=== PATIENT | female | born 1975 | race African-American/Black ===

== ENCOUNTER → 2017-02-18 | Emergency (ER) | payer MEDICARE, MEDICAID ==
[~2017-02-18] VITALS: Ht 157.5 cm; Wt 74.8 kg
[~2017-02-18] MED LIST: ALBUTEROL SULF8.5 GM INH; BACLOFEN10 MG ORAL; IBUPROFEN600 MG ORAL; IBUPROFEN600 MG PO; Ketorolac 30mg Inj IM ONE; MIRTAZAPINE15 M3 ORAL; NKM; NORCO 5-325 TA1 EACH ORAL; NORCO 5-325 TA1 EACH PO; RANITIDINE HCL150 MG ORAL; ZITHROMAX250 MG ORAL
--- NOTE | 2017-02-18 12:05 | Diagnostic Imaging Report ---
Indication: Right shoulder pain Technique: 3 views of the right shoulder Comparison: none Findings: No acute fractures. No dislocations. Joint spaces are preserved. Impression:Negative
[2017-02-18 12:54] VITALS: BP 130/69
--- NOTE | 2017-02-19 14:52 | Emergency Room Report ---
History of Present Illness General Chief Complaint: General Complaint Source: Family Member Present Illness HPI 41-year-old female presents ED for evaluation. Mother at bedside states that patient is complaining of pain in her right shoulder since yesterday. States the pain as a 10 out of 10, sharp, nonradiating. Unable to abduct her shoulder. Patient normally resides in a [id number] but is currently living with her mother. Denies any recent trauma. No other aggravting or relieving factors. Denies any other associated symptoms Allergies: Coded Allergies: No Known Allergies (Unverified , 11/26/12) Patient History Past Medical History: psych hx Past Surgical History: none Pertinent Family History: none Social History: Denies: alcohol use, drug use, smoking Last Menstrual Period: unk Now: No Immunizations: UTD Reviewed Nursing Documentation: PMH: Agreed, PSxH: Agreed Nursing Documentation-PMH Past Medical History: No History, Except For History Of Psychiatric Problem: Yes Review of Systems All Other Systems: negative except mentioned in HPI Physical Exam Vital Signs Date Time Temp Pulse Resp B/P Pulse Ox O2 Delivery O2 Flow Rate FiO2 02/18/17 11:12 98.8 85 18 130/69 98 Room Air Sp02 EP Interpretation: reviewed, normal General Appearance: no apparent distress, alert, GCS 15, non-toxic Head: normocephalic Eyes: bilateral eye PERRL, bilateral eye normal inspection ENT: normal ENT inspection Neck: normal inspection Respiratory: normal inspection Cardiovascular #1: normal inspection Gastrointestinal: normal inspection Rectal: deferred Genitourinary: no CVA tenderness Musculoskeletal: decreased range of motion - R shoulder Neurologic: alert, oriented x3, responsive, motor strength/tone normal, sensory intact, speech normal Psychiatric: anxious Skin: normal inspection Lymphatic: normal inspection Procedures Splinting Splinting : Consent: Verbal Pre-Made Type: sling Pre-Proc Neuro Vasc Exam: normal Post-Proc Neuro Vasc Exam: normal Patient Tolerated: Well Complications: None Medical Decision Making Diagnostic Impression: Primary Impression: Frozen shoulder Qualified Codes: M75.01 - Adhesive capsulitis of right shoulder ER Course Hospital Course 41 year old female presents ED complaining of right shoulder pain. No trauma Differential diagnoses include: Fracture, dislocation, sprain, contusion Clinical course Patient placed on stretcher. After initial history and physical, I ordered pain medications and Xrays of R shoulder Xrays prelim read shows no acute fracture/dislocation. placed in sling. Given limited range of motion likely rotator cuff injury versus adhesive capsulitis. Recommend followup with ortho Diagnosis - shoulder pain Stable and discharged to home with prescription for Motrin, [place]. apply ice, keep elevated. weight bear as tolerated. Followup with PMD. Return to ED if symptoms recur or worsen Other X-Ray Diagnostic Results Other X-Ray Diagnostic Results : X-Ray ordered: R shoulder # of Views/Limited Vs Complete: 3 View Indication: Pain EP Interpretation: Yes Interpretation: no dislocation, no soft tissue swelling, no fractures Impression: No acute disease Interpreting ER Provider: Electronically signed by Wilder Grimes MD Last Vital Signs Date Time Temp Pulse Resp B/P Pulse Ox O2 Delivery O2 Flow Rate FiO2 02/18/17 13:01 98.8 02/18/17 12:54 68 18 130/69 98 Room Air Status: improved Disposition: HOME, SELF-CARE Condition: Stable Scripts Hydrocodone Bit/Acetaminophen 5-325* (NORCO 5-325*) 1 Each Tablet 1 TAB ORAL Q6H Y for For Pain, #10 TAB 0 Refills Prov: WILDER GRIMES M.D. 02/18/17 Ibuprofen* (MOTRIN*) 600 Mg Tablet 600 MG ORAL Q8H Y for For Pain, #30 TAB 0 Refills Prov: WILDER GRIMES M.D. 02/18/17 Referrals: FLYNN MELENDREZ Patient Instructions: Adhesive Capsulitis WILDER GRIMES M.D. Feb 19, 2017 14:52
== END | disposition home or self-care (01) ==
LOC: EMR 11:52
DX: M75.01 Adhesive capsulitis of right shoulder (principal)
CPT/HCPCS: 29240; 73030; 96372; 99284; J1885

== ENCOUNTER 2017-02-20 21:10 | Emergency (ER) | payer MEDICARE, MEDICAID ==
[~2017-02-20] VITALS: Ht 152.4 cm; Wt 90.7 kg
[~2017-02-20 21:10] MED LIST changes: -BACLOFEN10 MG ORAL; -Ketorolac 30mg Inj IM ONE; -MIRTAZAPINE15 M3 ORAL
[2017-02-20] MEDS ORDERED: BACLOFEN10 MG ORAL (21:13)
[2017-02-20] MEDS ORDERED: MIRTAZAPINE15 M3 ORAL (21:13)
[2017-02-20 21:21] VITALS: BP 147/90
--- NOTE | 2017-02-21 03:14 | Emergency Room Report ---
History of Present Illness General Chief Complaint: Medication Refill Source: Patient, EMS Present Illness HPI 41YOF BIBEMS for medication refill Requesting refills of baclofen and Mirtzapine "to help me sleep." Denies chest pain, SOB, abd pain, headache, fever/chills, to name a few Denies SI, HI, AVH Allergies: Coded Allergies: No Known Allergies (Unverified , 11/26/12) Patient History Past Medical History: psych hx Past Surgical History: none Pertinent Family History: none Social History: Denies: alcohol use, drug use, smoking Last Menstrual Period: ukn Now: No Immunizations: UTD Reviewed Nursing Documentation: PMH: Agreed, PSxH: Agreed Nursing Documentation-PMH Past Medical History: No History, Except For Review of Systems All Other Systems: negative except mentioned in HPI Physical Exam Vital Signs Date Time Temp Pulse Resp B/P Pulse Ox O2 Delivery O2 Flow Rate FiO2 02/20/17 21:10 98.2 67 15 147/90 100 Room Air Sp02 EP Interpretation: reviewed, normal General Appearance: normal inspection, well appearing, no apparent distress, alert, GCS 15, non-toxic Head: atraumatic Eyes: bilateral eye EOMI, bilateral eye PERRL ENT: normal ENT inspection, hearing grossly normal, normal voice Neck: normal inspection, full range of motion, supple, no bony tend Respiratory: normal inspection, lungs clear, normal breath sounds, no respiratory distress, no retraction, no wheezing Cardiovascular #1: regular rate, rhythm, no edema Gastrointestinal: normal inspection, normal bowel sounds, non tender, soft, no guarding, no hernia Genitourinary: no CVA tenderness Musculoskeletal: normal inspection, back normal, normal range of motion, Kira' s Sign negative Neurologic: normal inspection, alert, oriented x3, responsive, kier drier III-XII nml as tested, motor strength/tone normal, speech normal Psychiatric: normal inspection, judgement/insight normal, mood/affect normal, no suicidal/homicidal ideation, no delusions Skin: normal inspection, normal color, no rash Medical Decision Making Diagnostic Impression: Primary Impression: Medication refill ER Course Meds refilled No active medical issues VSS. Afebrile Advised to NOT abuse EMS or ER for med refill again in the future Last Vital Signs Date Time Temp Pulse Resp B/P Pulse Ox O2 Delivery O2 Flow Rate FiO2 02/20/17 21:21 98.2 85 15 147/90 100 Room Air Status: improved Disposition: HOME, SELF-CARE Condition: Improved Scripts Baclofen* (BACLOFEN*) 10 Mg Tablet 10 MG ORAL THREE TIMES A DAY for muscle spasm for 7 Days, #30 TAB Prov: ANDREW SOW M.D. 02/20/17 Mirtazapine* (MIRTAZAPINE*) 15 Mg Tablet 15 MG ORAL BEDTIME for insomnia for 30 Days, #30 TAB Prov: ANDREW SOW M.D. 02/20/17 Referrals: [facility],REFERRING (PCP) Patient Instructions: Medicine Refill at the Emergency Department ANDREW SOW M.D. Feb 21, 2017 03:13
== END 2017-02-20 21:20 | disposition home or self-care (01) ==
LOC: EDBD 21:10 → EMR 21:18
DX: Z76.0 Encounter for issue of repeat prescription (principal)
CPT/HCPCS: 99284

== ENCOUNTER 2017-03-05 16:51 | Emergency (ER) | payer MEDICARE, MEDICAID ==
[~2017-03-05] VITALS: Ht 157.5 cm; Wt 72.6 kg
[~2017-03-05 16:51] MED LIST changes: +BACLOFEN10 MG ORAL; +MIRTAZAPINE15 M3 ORAL
[2017-03-05 17:30] VITALS: BP 119/84
[2017-03-05 17:31] VITALS: BP 119/84
--- NOTE | 2017-03-05 20:56 | Emergency Room Report ---
History of Present Illness General Chief Complaint: General Complaint Source: Patient Present Illness HPI 41-year-old female presents to ER for evaluation. Patient is requesting medication refill. patient is requesting medications to help her sleep. Patient is requesting mirtazapine and baclofen. Patient is well-known to this ER and has been here multiple times in the past for similar complaints. Patient states she feels very nervous that she cannot sleep. Patient does have an extensive psychiatric history. Denies suicidal or homicidal ideation. Denies hearing voices. Denies alcohol or drug use. No aggravating relieving factors. No other associated symptoms Allergies: Coded Allergies: No Known Allergies (Unverified , 11/26/12) Patient History Past Medical History: psych hx Past Surgical History: none Pertinent Family History: none Social History: Denies: alcohol use, drug use, smoking Last Menstrual Period: 02/02/17 Now: No Immunizations: UTD Reviewed Nursing Documentation: PMH: Agreed, PSxH: Agreed Nursing Documentation-PMH History Of Psychiatric Problem: Yes Review of Systems All Other Systems: negative except mentioned in HPI Physical Exam Vital Signs Date Time Temp Pulse Resp B/P Pulse Ox O2 Delivery O2 Flow Rate FiO2 03/05/17 16:59 98.4 100 15 117/82 96 Room Air Sp02 EP Interpretation: reviewed, normal General Appearance: no apparent distress, alert, GCS 15, non-toxic Head: normocephalic, atraumatic Eyes: bilateral eye PERRL, bilateral eye normal inspection ENT: hearing grossly normal, normal pharynx, no angioedema, normal voice Neck: full range of motion, supple/symm/no masses Respiratory: chest non-tender, lungs clear, normal breath sounds, speaking full sentences Cardiovascular #1: regular rate, rhythm, no edema Cardiovascular #2: 2+ carotid (R), 2+ carotid (L), 2+ radial (R), 2+ radial (L) , 2+ dorsalis pedis (R), 2+ dorsalis pedis (L) Gastrointestinal: normal bowel sounds, non tender, soft, non-distended, no guarding, no rebound Rectal: deferred Genitourinary: normal inspection, no CVA tenderness Musculoskeletal: back normal, gait/station normal, normal range of motion, non- tender Neurologic: alert, oriented x3, responsive, motor strength/tone normal, sensory intact, speech normal Psychiatric: memory normal, no suicidal/homicidal ideation, anxious Reflexes: 3+ bicep (R), 3+ bicep (L), 3+ tricep (R), 3+ tricep (L), 3+ knee (R) , 3+ knee (L) Skin: normal color, no rash, warm/dry, well hydrated Lymphatic: no adenopathy Medical Decision Making Diagnostic Impression: Primary Impression: Medication refill ER Course 41-year-old female presents to ED refill of her medication. requesting medications to [facility] course: After initial history and physical, I reviewed EMR. Patient has been here multiple times in the past for similar complaints. Patient normally comes with her mother who requests the medication on behalf of the patient. Patient was here recently for medication refill. Ear provide agreed to provide her with short course refill but did caution her patient should go to her PCP for medication refill I explained at this time I am uncomfortable prescribing her refills of these medications. I asked the patient why she did not go to her PCP for medication refill she says she forgot. I did not believe it is appropriate to prescribe medication at this time and patient should followup with her PCP Patient was to be discharged but left without her discharge papers Diagnosis-encounter for medication refill patient left without discharge papers Last Vital Signs Date Time Temp Pulse Resp B/P Pulse Ox O2 Delivery O2 Flow Rate FiO2 03/05/17 17:31 98.3 14 119/84 97 Room Air 03/05/17 17:30 97 Status: improved Disposition: HOME, SELF-CARE Condition: Stable Referrals: [facility],REFERRING (PCP) FELISHA TERRY M.D. Mar 05, 2017 20:56
== END 2017-03-05 17:32 | disposition home or self-care (01) ==
LOC: EMR 17:04
DX: Z76.0 Encounter for issue of repeat prescription (principal)
CPT/HCPCS: 99281

== ENCOUNTER 2017-03-22 14:41 | Emergency (ER) | payer MEDICARE, MEDICAID ==
[~2017-03-22] VITALS: Ht 149.9 cm; Wt 54.4 kg
[2017-03-22] MEDS ORDERED: Metoclopramide 10mg/10ml Liq ORAL ONE (15:00)
[2017-03-22] MEDS ORDERED: TYLENOL EXTRA500 MG ORAL (15:50)
[2017-03-22 16:27] VITALS: BP 129/74
[2017-03-22 16:31] VITALS: BP 129/74
--- NOTE | 2017-03-22 18:46 | Emergency Room Report ---
History of Present Illness General Chief Complaint: Headache Source: EMS Present Illness HPI The patient is a 41-year-old female a little to this emergency Department presenting for headache. She states that she has a history of migraine headaches. Headache began this morning described as a 10 out of 10 stabbing pain to the temples. Pain does not radiate. No known provoking or relieving factors. She denies other symptoms including nausea, vomiting, fever, chills, blurred vision Allergies: Coded Allergies: No Known Allergies (Unverified , 11/26/12) Patient History Past Medical History: see triage record Pertinent Family History: none Reviewed Nursing Documentation: PMH: Agreed, PSxH: Agreed Nursing Documentation-PMH Past Medical History: No History, Except For Hx Neurological Problems: Yes - BIPOLAR Review of Systems All Other Systems: negative except mentioned in HPI Physical Exam Vital Signs Date Time Temp Pulse Resp B/P (MAP) Pulse Ox O2 Delivery O2 Flow Rate FiO2 03/22/17 14:35 98.8 93 20 129/74 98 Room Air Sp02 EP Interpretation: reviewed, normal General Appearance: no apparent distress, alert, GCS 15, non-toxic Head: normocephalic, atraumatic Eyes: bilateral eye normal inspection, bilateral eye PERRL ENT: hearing grossly normal, normal pharynx, no angioedema, normal voice Neck: full range of motion, supple/symm/no masses Musculoskeletal: back normal, gait/station normal, normal range of motion, non- tender Neurologic: alert, oriented x3, responsive, motor strength/tone normal, sensory intact, speech normal Psychiatric: judgement/insight normal, memory normal, mood/affect normal, no suicidal/homicidal ideation Skin: normal color, no rash, warm/dry, well hydrated Medical Decision Making PA Attestation Dr. Avila is my supervising physician. Patient management was discussed with my supervising physician Diagnostic Impression: Primary Impression: Migraine Qualified Codes: G43.909 - Migraine, unspecified, not intractable, without status migrainosus ER Course The patient is a 41-year-old female presenting for headache Differential diagnoses include but not limited to Migraine, tension headache, CVA, infection, SAH Physical exam: Afebrile. She is in no apparent distress. HEENT is unremarkable Neck is soft and supple. Full active range of motion The patient is given Tylenol, Reglan, and Benadryl and states that pain has significantly decreased. She is now asking to be discharged. ER precautions are given Last Vital Signs Date Time Temp Pulse Resp B/P (MAP) Pulse Ox O2 Delivery O2 Flow Rate FiO2 03/22/17 16:31 98.7 76 20 129/74 98 Room Air Status: improved Disposition: HOME, SELF-CARE Condition: Improved Scripts Acetaminophen* (TYLENOL EXTRA STRENGTH*) 500 Mg Tablet 500 MG ORAL Q8H Y for Prn Headache/Temp > 101, #30 TAB 0 Refills Prov: MAHNAZ BUTTS 03/22/17 Referrals: NON PHYSICIAN (PCP) Patient Instructions: Migraine Headache Additional Instructions: I discussed my findings with the patient. All questions and concerns have been answered. Treatment and medication compliance have been addressed. I advised the patient that they need to follow up with PMD in 3-5 days. Return to ED if symptoms worsen, new symptoms arise, or if needed for any reason. Patient verbalized understanding of discharge instructions. MAHNAZ BUTTS Mar 22, 2017 18:46
== END 2017-03-22 16:20 | disposition home or self-care (01) ==
LOC: EDBD 14:41 → EMR 15:10
DX: G43.909 Migraine, unspecified, not intractable, without status migrainosus (principal)
CPT/HCPCS: 99284

== ENCOUNTER 2017-04-12 18:06 | Emergency (ER) | payer MEDICARE, MEDICAID ==
[~2017-04-12] VITALS: Ht 162.6 cm; Wt 65.8 kg
[~2017-04-12 18:06] MED LIST changes: +TYLENOL EXTRA500 MG ORAL
[2017-04-12] MEDS ORDERED: DiphenhydrAMINE 50mg/ml Inj IM ONE (19:00)
[2017-04-12] MEDS ORDERED: Ketorolac 60mg Inj IM ONE (19:00)
[2017-04-12] MEDS ORDERED: Metoclopramide 10mg/2ml Inj IM ONE (19:00)
[2017-04-12 19:18] VITALS: BP 130/80
[2017-04-12] MEDS ORDERED: IBUPROFEN600 MG ORAL (19:33)
--- NOTE | 2017-04-12 22:39 | Emergency Room Report ---
History of Present Illness General Chief Complaint: General Complaint Source: Patient Present Illness HPI The patient is a 41-year-old female presenting for headache. She states that she has a history of migraines and this feels the same. Pain began today and described as a 5/10 sharp sensation to the entire head. She has not tried any medications yet. No known provoking relieving factors. She admits to photophobia but denies nausea, vomiting, fever, chills, neck pain or stiffness, chest pain, shortness of breath, blurred vision Allergies: Coded Allergies: No Known Allergies (Unverified , 11/26/12) Patient History Past Medical History: see triage record Pertinent Family History: none Reviewed Nursing Documentation: PMH: Agreed, PSxH: Agreed Nursing Documentation-PMH Past Medical History Deferred: Pt Cognitively Impaired History Of Psychiatric Problem: Yes - schizo Hx Neurological Problems: Yes - BIPOLAR Review of Systems All Other Systems: negative except mentioned in HPI Physical Exam Vital Signs Date Time Temp Pulse Resp B/P (MAP) Pulse Ox O2 Delivery O2 Flow Rate FiO2 04/12/17 18:01 98.1 78 16 130/80 98 Room Air Sp02 EP Interpretation: reviewed, normal General Appearance: no apparent distress, alert, GCS 15, non-toxic Head: normocephalic, atraumatic Eyes: bilateral eye normal inspection, bilateral eye PERRL ENT: hearing grossly normal, normal pharynx, no angioedema, normal voice Neck: full range of motion, supple/symm/no masses Respiratory: chest non-tender, lungs clear, normal breath sounds, speaking full sentences Musculoskeletal: back normal, gait/station normal, normal range of motion, non- tender Neurologic: alert, oriented x3, responsive, motor strength/tone normal, sensory intact, speech normal Psychiatric: judgement/insight normal, memory normal, no suicidal/homicidal ideation Skin: normal color, no rash, warm/dry, well hydrated Medical Decision Making PA Attestation Dr. Coe is my supervising physician. Patient management was discussed with my supervising physician Diagnostic Impression: Primary Impression: Migraine Qualified Codes: G43.909 - Migraine, unspecified, not intractable, without status migrainosus ER Course The patient is a 41-year-old female presenting for headache. Differential diagnoses include but not limited to Migraine, tension headache, AVM, anxiety, among others PE: Vitals WNL. NAD A&Ox3 Head NC/AT PERRL EOMI Neck is soft and supple. Full AROM RRR Lungs CTAB The patient is given IM Toradol, Reglan, and Benadryl in is given time to rest in the emergency department. She states the pain has significantly decreased and now wants to be discharged. To follow up with her primary doctor. ER precautions are given Last Vital Signs Date Time Temp Pulse Resp B/P (MAP) Pulse Ox O2 Delivery O2 Flow Rate FiO2 04/12/17 19:37 98.1 78 16 130/80 98 Room Air Status: improved Disposition: HOME, SELF-CARE Condition: Improved Scripts Ibuprofen* (MOTRIN*) 600 Mg Tablet 600 MG ORAL Q8H Y for For Pain, #30 TAB 0 Refills Prov: MAHNAZ BUTTS 04/12/17 Referrals: NOT CHOSEN [facility],REFERRING (PCP) Patient Instructions: Nausea, Adult Additional Instructions: I discussed my findings with the patient. All questions and concerns have been answered. Treatment and medication compliance have been addressed. I advised the patient that they need to follow up with PMD in 3-5 days. Return to ED if symptoms worsen, new symptoms arise, or if needed for any reason. Patient verbalized understanding of discharge instructions. MAHNAZ BUTTS Apr 12, 2017 22:39
== END 2017-04-12 19:40 | disposition home or self-care (01) ==
LOC: EDBD 18:06 → EMR 19:39
DX: G43.909 Migraine, unspecified, not intractable, without status migrainosus (principal); F31.9 Bipolar disorder, unspecified; F20.9 Schizophrenia, unspecified
CPT/HCPCS: 96372; 99284; J1200; J2765

== ENCOUNTER 2017-05-05 13:12 | Emergency (ER) | payer MEDICARE, MEDICAID ==
[~2017-05-05] VITALS: Ht 160 cm; Wt 65.8 kg
--- NOTE | 2017-05-05 13:25 | Emergency Room Report ---
History of Present Illness General Chief Complaint: Dizziness Source: Patient Present Illness HPI The patient is a 41-year-old female with a history of bipolar disorder and migraine headaches presenting for headache and dizziness. She has been seen in this emergency department several times for migraine headaches. She does not remember what medication she usually takes for the pain. Symptoms began together and described as a 10 out of 10 sharp sensation primarily to the right side of the head. She states that this feels typical for her migraine headaches. Dizziness is felt as the room spinning around her. She denies nausea or vomiting. She denies other symptoms including neck pain or stiffness , blurred vision, chest pain, shortness of breath, fever, chills Allergies: Coded Allergies: No Known Allergies (Unverified , 11/26/12) Patient History Past Medical History: see triage record, psych hx Pertinent Family History: none Reviewed Nursing Documentation: PMH: Agreed, PSxH: Agreed Nursing Documentation-PMH Past Medical History: No History, Except For Hx Hypertension: Yes Hx Neurological Problems: Yes - BIPOLAR Review of Systems All Other Systems: negative except mentioned in HPI Physical Exam Vital Signs Date Time Temp Pulse Resp B/P (MAP) Pulse Ox O2 Delivery O2 Flow Rate FiO2 05/05/17 13:09 99.0 74 18 154/82 98 Room Air Sp02 EP Interpretation: reviewed, normal General Appearance: no apparent distress, alert, GCS 15, non-toxic Head: normocephalic, atraumatic Eyes: bilateral eye normal inspection, bilateral eye PERRL ENT: hearing grossly normal, normal pharynx, no angioedema, normal voice Neck: full range of motion, supple, no bony tend, supple/symm/no masses Respiratory: chest non-tender, lungs clear, normal breath sounds, speaking full sentences Cardiovascular #1: regular rate, rhythm, no edema Gastrointestinal: normal bowel sounds, non tender, soft, non-distended, no guarding, no rebound Musculoskeletal: back normal, gait/station normal, normal range of motion, non- tender Neurologic: alert, responsive, sensory intact Psychiatric: judgement/insight normal, mood/affect normal, no suicidal/ homicidal ideation Skin: normal color, no rash, warm/dry, well hydrated Medical Decision Making PA Attestation Dr. Carlson is my supervising physician. Patient management was discussed with my supervising physician Diagnostic Impression: Primary Impression: Migraine Qualified Codes: G43.909 - Migraine, unspecified, not intractable, without status migrainosus ER Course The patient is a 41-year-old female with a history of migraines presenting for headache and dizziness Differential diagnoses include but not limited to Migraine, tension headache, CVA, ICH, sinusitis, among others PE: Vitals WNL. NAD Head is normocephalic atraumatic No TTP over sinuses PERRL EOMI Neck is soft and supple Blood work is unremarkable. EKG unremarkable. CT head is essentially negative The patient is given and medication including Toradol, Benadryl, and Reglan. She'll be discharged home and is to followup with her primary doctor. ER precautions are given Laboratory Tests Test 05/05/17 13:40 White Blood Count 8.2 K/UL (4.8-10.8) Red Blood Count 4.44 M/UL (4.20-5.40) Hemoglobin 14.5 G/DL (12.0-16.0) Hematocrit 46.1 % (37.0-47.0) Mean Corpuscular Volume 104 FL (80-99) H Mean Corpuscular Hemoglobin 32.7 PG (27.0-31.0) H Mean Corpuscular Hemoglobin Concent 31.5 G/DL (32.0-36.0) L Red Cell Distribution Width 11.8 % (11.6-14.8) Platelet Count 266 K/UL (150-450) Mean Platelet Volume 7.8 FL (6.5-10.1) Neutrophils (%) (Auto) 58.6 % (45.0-75.0) Lymphocytes (%) (Auto) 28.0 % (20.0-45.0) Monocytes (%) (Auto) 9.6 % (1.0-10.0) Eosinophils (%) (Auto) 2.0 % (0.0-3.0) Basophils (%) (Auto) 1.8 % (0.0-2.0) Prothrombin Time 10.2 SEC (9.30-11.50) Prothrombin Time INR 1.0 (0.9-1.1) PTT 30 SEC (23-33) Urine Color Yellow Urine Appearance Clear Urine pH 5 (4.5-8.0) Urine Specific [place] 1.020 (1.005-1.035) Urine Protein Negative (NEGATIVE) Urine Glucose (UA) Negative (NEGATIVE) Urine Ketones Negative (NEGATIVE) Urine Occult Blood Negative (NEGATIVE) Urine Nitrite Negative (NEGATIVE) Urine Bilirubin Negative (NEGATIVE) Urine Urobilinogen Normal MG/DL (0.0-1.0) Urine Leukocyte Esterase 1+ (NEGATIVE) H Urine RBC 0-2 /HPF (0 - 2) Urine WBC 2-4 /HPF (0 - 2) Urine Squamous Epithelial Cells Moderate /LPF (NONE/OCC) H Urine Bacteria Few /HPF (NONE) Urine HCG, Qualitative Negative Sodium Level 139 MMOL/L (136-145) Potassium Level 4.2 MMOL/L (3.5-5.1) Chloride Level 102 MMOL/L (98-107) Carbon Dioxide Level 31 MMOL/L (21-32) Anion Gap 6 mmol/L (5-15) Blood Urea Nitrogen 8 mg/dL (7-18) Creatinine 0.8 MG/DL (0.55-1.30) Estimate Glomerular Filtration Rate > 60 mL/min (>60) Glucose Level 103 MG/DL (74-106) Calcium Level 10.1 MG/DL (8.5-10.1) Total Bilirubin 0.3 MG/DL (0.2-1.0) Aspartate Amino Transferase (AST) 16 U/L (15-37) Alanine Aminotransferase (ALT) 18 U/L (12-78) Alkaline Phosphatase 69 U/L (46-116) Troponin I 0.000 ng/mL (0.000-0.056) Total Protein 8.5 G/DL (6.4-8.2) H Albumin 4.1 G/DL (3.4-5.0) Globulin 4.4 g/dL Albumin/Globulin Ratio 0.9 (1.0-2.7) L Lab Results Impression unremarkable EKG Diagnostic Results EP Interpretation: NSR. No acute findings Rate: normal - 97 Rhythm: NSR ST Segments: no acute changes ASA given to the pt in ED: No PA Scribe Text EKG was reviewed and read with my supervising physician. No acute ST segment changes are seen. Normal rate and rhythm. No acute changes. Chest X-Ray Diagnostic Results Chest X-Ray Diagnostic Results : Chest X-Ray Ordered: Yes # of Views/Limited/Complete: 1 View Indication: Other - dizziness EP Interpretation: Yes Interpretation: no consolidation, no effusion, no pneumothorax Impression: No acute disease Electronically Signed by: MCKAY Bobby Scribe Text I am acting as scribe for my supervising physician. My supervising physician's interpretation of the chest xrays are there is no consolidation, no effusion, no acute cardiopulmonary disease, no pneumothorax CT/MRI/US Diagnostic Results CT/MRI/US Diagnostic Results : Imaging Test Ordered: CT head Impression unremarkable Last Vital Signs Date Time Temp Pulse Resp B/P (MAP) Pulse Ox O2 Delivery O2 Flow Rate FiO2 05/05/17 13:09 99.0 74 18 154/82 98 Room Air Status: improved Disposition: HOME, SELF-CARE Condition: Improved MAHNAZ BUTTS May 05, 2017 13:25
[2017-05-05 13:53] VITALS: BP 154/82
[2017-05-05 14:00] LABS: BASOPHILS % (AUTO) 1.8 % (0.0-2.0); MEAN CORPUSCULAR HEMOGLOBIN 32.7 PG (27.0-31.0); MEAN CORPUSCULAR HGB CONC 31.5 G/DL (32.0-36.0); MEAN CORPUSCULAR VOLUME 104 FL (80-99); MEAN PLATELET VOLUME 7.8 FL (6.5-10.1); MONOCYTES % (AUTO) 9.6 % (1.0-10.0); NEUTROPHILS % (AUTO) 58.6 % (45.0-75.0); PLATELET COUNT 266 K/UL (150-450); RED BLOOD COUNT 4.44 M/UL (4.20-5.40); RED CELL DISTRIBUTION WIDTH 11.8 % (11.6-14.8); WHITE BLOOD COUNT 8.2 K/UL (4.8-10.8)
[2017-05-05 14:03] LABS: APPEARANCE,URINE CLEAR; KETONES,URINE NEGATIVE (NEGATIVE); LEUKOCYTE ESTERASE ,URINE 1+ (NEGATIVE); NITRITE,URINE NEGATIVE (NEGATIVE); PH,URINE 5 (4.5-8.0); PROTEIN,URINE NEGATIVE (NEGATIVE); UROBILINOGEN,URINE NORMAL MG/DL (0.0-1.0)
[2017-05-05 14:08] LABS: PROTHROMBIN TIME 10.2 SEC (9.30-11.50)
--- NOTE | 2017-05-05 14:08 | Diagnostic Imaging Report ---
Indication: Dyspnea Comparison: 11/26/12 A single view chest radiograph was obtained. Findings: Cardiac silhouette is prominent. Pulmonary vascularity is appropriate. The diaphragmatic contour is smooth and costophrenic angles are sharp. No pleural effusions are identified. The bones are unremarkable. Impression: No acute findings Cardiomegaly
--- NOTE | 2017-05-05 14:08 | Diagnostic Imaging Report ---
Indication: Headache and dizziness Technique: Contiguous 5 mm thick transaxial imaging of the head obtained in a Siemens Sensation [address] scanner. Soft tissue and bone windows generated. Total Dose length Product (DLP): [address] Dose Index Volume (CTDIvol): 70.38, 0.15 mGy Comparison: none Findings: The size and configuration of the cortical sulci, basal cisterns, and ventricles are within normal limits for age. There is no mass effect, midline shift, or edema identified. There is no evidence of acute hemorrhage or abnormal intra-axial or extra-axial fluid collections. The bones and soft tissues are unremarkable. Impression: No mass effect, edema or acute bleed. The CT scanner at [facility] is accredited by the [employer] and the scans are performed using dose optimization techniques as appropriate to a performed exam including Automatic Exposure control.
[2017-05-05 14:12] LABS: BACTERIA,URINE FEW /HPF; RBC,URINE 0-2 /HPF (0 - 2); SQUAMOUS EPITHELIAL CELL,UR MODERATE /LPF (NONE/OCC)
[2017-05-05 14:13] LABS: ALANINE AMINOTRANSFERASE 18 U/L (12-78); ALBUMIN/GLOBULIN RATIO 0.9 (1.0-2.7); ANION GAP 6 mmol/L (5-15); ASPARTATE AMINO TRANSFERASE 16 U/L (15-37); CALCIUM 10.1 MG/DL (8.5-10.1); CARBON DIOXIDE 31 MMOL/L (21-32); CHLORIDE 102 MMOL/L (98-107); CREATININE 0.8 MG/DL (0.55-1.30); GLOMERULAR FILTRATION RATE > 60 mL/min (>60); POTASSIUM 4.2 MMOL/L (3.5-5.1); SODIUM 139 MMOL/L (136-145); TOTAL PROTEIN 8.5 G/DL (6.4-8.2)
[2017-05-05] MEDS ORDERED: Metoclopramide 10mg/2ml Inj IVP ONE (14:30)
[2017-05-05] MEDS ORDERED: Ketorolac 30mg Inj IV ONE (14:30)
[2017-05-05] MEDS ORDERED: DiphenhydrAMINE 50mg/ml Inj IVP ONE (14:30)
[2017-05-05 15:03] VITALS: BP 145/80
[2017-05-05 15:05] VITALS: BP 145/80
--- NOTE | 2017-05-06 15:14 | Cardiology Report ---
APPROVED REPORT EKG Measurement Heart [id number] 140P [id number] Normal sinus rhythm Lateral infarct, age undetermined Abnormal ECG
== END 2017-05-05 15:08 | disposition home or self-care (01) ==
LOC: EDBD 13:12 → EMR 13:42
DX: G43.909 Migraine, unspecified, not intractable, without status migrainosus (principal); I10 Essential (primary) hypertension; F31.9 Bipolar disorder, unspecified; R51 Headache; R42 Dizziness and giddiness
CPT/HCPCS: 36415; 70450; 71010; 80053; 81003; 81025; 84484; 85025; 85610; 85730; 93005; 96361; 96374; 96375; 99284; J1200; J1885; J2765

== ENCOUNTER 2017-05-25 15:09 | Emergency (ER) | payer MEDICARE, MEDICAID ==
[~2017-05-25] VITALS: Ht 162.6 cm; Wt 63.5 kg
[2017-05-25] MEDS ORDERED: Metoclopramide 10mg/10ml Liq ORAL ONE (15:15)
[2017-05-25] MEDS ORDERED: Excedrin Migraine tab ORAL ONE (15:15)
[2017-05-25 15:45] LABS: APPEARANCE,URINE CLEAR; BILIRUBIN, URINE NEGATIVE (NEGATIVE); GLUCOSE, URINE (UA) NEGATIVE (NEGATIVE); KETONES,URINE 1+ (NEGATIVE); LEUKOCYTE ESTERASE ,URINE 1+ (NEGATIVE); NITRITE,URINE NEGATIVE (NEGATIVE); PH,URINE 5 (4.5-8.0); PROTEIN,URINE NEGATIVE (NEGATIVE); UROBILINOGEN,URINE NORMAL MG/DL (0.0-1.0)
[2017-05-25 15:47] LABS: COLOR,URINE YELLOW
--- NOTE | 2017-05-25 15:51 | Emergency Room Report ---
History of Present Illness General Chief Complaint: Headache Present Illness HPI 41-year-old female presents to the emergency department complaining of 5/ 10 in severity dull aching headache that was progressive onset x2 days. Patient denies trauma or fall she denies loss of consciousness, dizziness, visual changes, nausea, vomiting. She denies abdominal pain, dysuria, frequency, hematuria. Denies fevers, chills, neck pain or stiffness.Denies numbness tingling or loss of sensation or gross motor movements of the extremities, incontinence of bowel or bladder. Denies CP, Palpitations, LOC, AMS, dizziness, Changes in Vision, Sensation, paresthesias, or a sudden severe headache. Allergies: Coded Allergies: No Known Allergies (Unverified , 11/26/12) Patient History Past Medical History: see triage record, psych hx - bipolar Past Surgical History: none Pertinent Family History: none Now: No Reviewed Nursing Documentation: PMH: Agreed, PSxH: Agreed Nursing Documentation-PMH Hx Hypertension: Yes Hx Neurological Problems: Yes - BIPOLAR Review of Systems All Other Systems: negative except mentioned in HPI Physical Exam Vital Signs Date Time Temp Pulse Resp B/P (MAP) Pulse Ox O2 Delivery O2 Flow Rate FiO2 05/25/17 15:06 97.2 82 16 128/86 100 Room Air Sp02 EP Interpretation: reviewed, normal General Appearance: no apparent distress, alert, GCS 15, non-toxic Head: normocephalic, atraumatic Eyes: bilateral eye normal inspection, bilateral eye PERRL ENT: hearing grossly normal, normal pharynx, no angioedema, normal voice Neck: full range of motion, no meningismus Respiratory: lungs clear, normal breath sounds, speaking full sentences Cardiovascular #1: regular rate, rhythm Gastrointestinal: non tender, soft Rectal: deferred Genitourinary: normal inspection, no CVA tenderness Musculoskeletal: back normal, gait/station normal, normal range of motion, non- tender Neurologic: alert, oriented x3, responsive, motor strength/tone normal, sensory intact, speech normal Psychiatric: other - Pt. has flattened affect. Skin: normal color, no rash, warm/dry, well hydrated Medical Decision Making PA Attestation Dr. Rosales is my supervising Physician whom patient management has been discussed with. Diagnostic Impression: Primary Impression: Headache Qualified Codes: R51 - Headache ER Course 41-year-old female presents to the emergency department complaining of 5/ 10 in severity dull aching headache that was progressive onset x2 days. Patient denies trauma or fall she denies loss of consciousness, dizziness, visual changes, nausea, vomiting. She denies abdominal pain, dysuria, frequency, hematuria. Denies fevers, chills, neck pain or stiffness.Denies numbness tingling or loss of sensation or gross motor movements of the extremities, incontinence of bowel or bladder. Denies CP, Palpitations, LOC, AMS, dizziness, Changes in Vision, Sensation, paresthesias, or a sudden severe headache. Ddx considered but are not limited to migraine, SAH, Psedudo motor Cerebri, Mass lesion, Cluster GARZA, Tension GARZA, Post lumbar puncture GARZA. Vital signs: are WNL, pt. is afebrile H&PE are most consistent with headache--Neurological deficits or 5 cm physical exam, no evidence of infection, no meningeal signs. ORDERS: - UA: Most indicative of contamination: presence of equal amounts of bacteria and squamous cells, no elevation in inflammatory markers, nitrite negative. ED INTERVENTIONS: - Reglan PO -Excedrine PO -d/w pt. conservative treatment, and to follow up with a primary care provider. pt given a list of primary care clinics for follow up. d/w pt. to return to the ED with worsening or new symptoms. -D/W the patient that she may need to be evaluated by neurologist if she continues to have frequent headaches.. DISCHARGE: At this time pt. is stable for d/c to home. Will provide printed patient care instructions, and any necessary prescriptions. Care plan and follow up instructions have been discussed with the patient prior to discharge. Labs Test 05/25/17 15:20 Urine Color Yellow Urine Appearance Clear Urine pH 5 (4.5-8.0) Urine Specific [place] 1.025 (1.005-1.035) Urine Protein Negative (NEGATIVE) Urine Glucose (UA) Negative (NEGATIVE) Urine Ketones 1+ (NEGATIVE) Urine Occult Blood Negative (NEGATIVE) Urine Nitrite Negative (NEGATIVE) Urine Bilirubin Negative (NEGATIVE) Urine Urobilinogen Normal MG/DL (0.0-1.0) Urine Leukocyte Esterase 1+ (NEGATIVE) Urine RBC 0-2 /HPF (0 - 2) Urine WBC 2-4 /HPF (0 - 2) Urine Squamous Epithelial Cells Moderate /LPF (NONE/OCC) Urine Bacteria Moderate /HPF (NONE) Last Vital Signs Date Time Temp Pulse Resp B/P (MAP) Pulse Ox O2 Delivery O2 Flow Rate FiO2 05/25/17 15:06 97.2 82 16 128/86 100 Room Air Disposition: HOME, SELF-CARE Condition: Stable Scripts Aspirin/Acetaminophen/Caffeine (EXCEDRIN MIGRAINE GELTAB) 1 Each Tablet 1 EACH PO Q8HR, #20 TAB Prov: Michelle Shelton 05/25/17 Patient Instructions: General Headache Without Cause Additional Instructions: Take medications as directed. Follow up with a Primary Care Provider in 3 days, Recommend NEUROLOGIST EVALUATION. --Please review list of primary care clinics, if you do not already have a primary care provider Return sooner to ED if new symptoms occur, or current symptoms become worse. - Please note that this Emergency Department Report was dictated using [employer] energy systems installer technology software, occasionally this can lead to erroneous entry secondary to interpretation by the dictation equipment. Michelle Shelton May 25, 2017 15:51
[2017-05-25 16:00] VITALS: BP 142/85
[2017-05-25] MEDS ORDERED: EXCEDRIN MIGRA1 EACH PO (16:13)
== END 2017-05-25 16:40 | disposition home or self-care (01) ==
LOC: EDBD 15:09 → EMR 16:10
DX: R51 Headache (principal); I10 Essential (primary) hypertension; F31.9 Bipolar disorder, unspecified
CPT/HCPCS: 81003; 87086; 99284

== ENCOUNTER 2017-06-08 17:15 | Emergency (ER) | payer MEDICARE, MEDICAID ==
[~2017-06-08] VITALS: Ht 157.5 cm; Wt 72.6 kg
[~2017-06-08 17:15] MED LIST changes: +EXCEDRIN MIGRA1 EACH PO
--- NOTE | 2017-06-08 17:42 | Emergency Room Report ---
History of Present Illness General Chief Complaint: General Complaint Source: Patient (Elisha Hill) Present Illness HPI Patient is a 41-year-old female with a psychiatric history who presents today with complaints of a loss of sleep. Patient states she has not been taking her mirtazapine as prescribed. Patient admits to suicidal ideation with no plan. Pt is poor historian (Elisha Hill) Allergies: Coded Allergies: No Known Allergies (Unverified , 11/26/12) Patient History Last Menstrual Period: unk Reviewed Nursing Documentation: PMH: Agreed, PSxH: Agreed (Elisha Hill.Daniele) Nursing Documentation-PMH Past Medical History: No History, Except For Hx Cardiac Problems: No Hx Hypertension: No Hx Pacemaker: No Hx Asthma: No Hx COPD: No Hx Diabetes: No Hx Cancer: No Hx Gastrointestinal Problems: No Hx Dialysis: No Hx Neurological Problems: No Hx Cerebrovascular Accident: No Hx Seizures: No (Elisha Hill.AEdmar) Review of Systems All Other Systems: negative except mentioned in HPI (Elisha Hill.Daniele) Physical Exam Vital Signs Date Time Temp Pulse Resp B/P (MAP) Pulse Ox O2 Delivery O2 Flow Rate FiO2 06/08/17 17:20 98.2 86 18 142/83 97 Room Air General Appearance: other - unkempt, discheveled Gastrointestinal: normal inspection, normal bowel sounds, non tender, soft Psychiatric: depressed affect, other - tearful, suicidal (Elisha Hill P.A.) General Appearance: no apparent distress, alert, Chronically Ill ENT: normal voice Neck: full range of motion Respiratory: normal inspection Cardiovascular #1: normal inspection Musculoskeletal: normal inspection, back normal, digits/nails normal Neurologic: alert, responsive, ore crushing dust collector III-XII nml as tested Psychiatric: anxious, other - poor insight Skin: normal inspection, normal color, no rash (Kike Rosales) Medical Decision Making PA Attestation Supervising physician is Dr. gonzalez (Elisha Hill P.AEdmar) Diagnostic Impression: Primary Impression: UTI (urinary tract infection) Additional Impressions: Altered mental status Psychiatric complaint ER Course Labs are within normal limits. Patient is medically cleared for placement. Tears transitioned to Dr. Grimes (Elisha Hill P.AEdmar) ER Course Patient was endorsed to me by previous physician. Patient was noted to have some history of reported hallucinations as well as reported history of suicidal thoughts. Patient states she primarily has difficulty sleeping. The patient currently pending psychiatric evaluation for possible placement. Patient was noted to have urinary tract infection. (Kike Rosales) ER Course Please refer to initial note for the initial presentation At this time patient has been in the emergency room for over 39 hours There have been no available psychiatric evaluation through different attempts On reevaluation patient appears somewhat confused Is not sure why she was brought to the emergency room She reports that she is scared Patient does have underlying history of psychiatric disorder At this time not verbalizing any thought of hurting herself, however the patient apparently did make a statement earlier Patient's urine sample show significant UTI This was treated with oral antibiotics Patient require further anxiolytic medication at this time requires more definitive disposition therefore request for admission is made Given the patient's insurance purposes They have requested transfer to a contracted facility patient will have further inpatient care and psychiatric evaluation And at this time stable for transfer Labs Test 06/08/17 18:50 06/08/17 19:55 06/09/17 11:44 Urine Color Pale yellow Urine Appearance Slightly cloudy Urine pH 5 (4.5-8.0) Urine Specific [place] 1.020 (1.005-1.035) Urine Protein Negative (NEGATIVE) Urine Glucose (UA) Negative (NEGATIVE) Urine Ketones 2+ (NEGATIVE) Urine Occult Blood 2+ (NEGATIVE) Urine Nitrite Negative (NEGATIVE) Urine Bilirubin Negative (NEGATIVE) Urine Urobilinogen Normal MG/DL (0.0-1.0) Urine Leukocyte Esterase 2+ (NEGATIVE) Urine RBC 2-4 /HPF (0 - 2) Urine WBC 5-10 /HPF (0 - 2) Urine Squamous Epithelial Cells Moderate /LPF (NONE/OCC) Urine Bacteria Moderate /HPF (NONE) Urine Opiates Screen Negative (NEGATIVE) Urine Barbiturates Screen Negative (NEGATIVE) Phencyclidine (PCP) Screen Negative (NEGATIVE) Urine Amphetamines Screen Negative (NEGATIVE) Urine Benzodiazepines Screen Negative (NEGATIVE) Urine Cocaine Screen Negative (NEGATIVE) Urine Marijuana (THC) Screen Negative (NEGATIVE) White Blood Count 9.5 K/UL (4.8-10.8) Red Blood Count 4.06 M/UL (4.20-5.40) Hemoglobin 13.5 G/DL (12.0-16.0) Hematocrit 41.8 % (37.0-47.0) Mean Corpuscular Volume 103 FL (80-99) Mean Corpuscular Hemoglobin 33.3 PG (27.0-31.0) Mean Corpuscular Hemoglobin Concent 32.3 G/DL (32.0-36.0) Red Cell Distribution Width 11.5 % (11.6-14.8) Platelet Count 242 K/UL (150-450) Mean Platelet Volume 7.7 FL (6.5-10.1) Neutrophils (%) (Auto) 65.6 % (45.0-75.0) Lymphocytes (%) (Auto) 24.5 % (20.0-45.0) Monocytes (%) (Auto) 7.0 % (1.0-10.0) Eosinophils (%) (Auto) 1.1 % (0.0-3.0) Basophils (%) (Auto) 1.8 % (0.0-2.0) Sodium Level 138 MMOL/L (136-145) Potassium Level 3.4 MMOL/L (3.5-5.1) Chloride Level 102 MMOL/L (98-107) Carbon Dioxide Level 24 MMOL/L (21-32) Anion Gap 12 mmol/L (5-15) Blood Urea Nitrogen 11 mg/dL (7-18) Creatinine 0.8 MG/DL (0.55-1.30) Estimat Glomerular Filtration Rate > 60 mL/min (>60) Glucose Level 107 MG/DL (74-106) Calcium Level 9.5 MG/DL (8.5-10.1) Total Bilirubin 0.3 MG/DL (0.2-1.0) Aspartate Amino Transf (AST/SGOT) 16 U/L (15-37) Alanine Aminotransferase (ALT/SGPT) 12 U/L (12-78) Alkaline Phosphatase 62 U/L (46-116) Total Protein 8.6 G/DL (6.4-8.2) Albumin 4.3 G/DL (3.4-5.0) Globulin 4.3 g/dL Albumin/Globulin Ratio 1.0 (1.0-2.7) Urine HCG, Qualitative Negative (CINDY MENDOZA D.O.) Rhythm Strip Diag. Results Rhythm Strip Time: 17:59 EP Interpretation: yes Rate: 86 Rhythm: NSR, no PVC's, no ectopy (Elisha Hill.Daniele) Last Vital Signs Date Time Temp Pulse Resp B/P (MAP) Pulse Ox O2 Delivery O2 Flow Rate FiO2 06/08/17 17:20 98.2 86 18 142/83 97 Room Air (Elisha Hill) Status: unchanged (Kike Rosales) Status: improved (CINDY MENDOZA D.O.) Disposition: XFER [facility]HT-[facility] Condition: Improved Referrals: NOT CHOSEN IPA/,REFERRING (PCP) Elisha Hill Jun 08, 2017 17:42 Kike Rosales Jun 09, 2017 19:15 CINDY MENDOZA D.O. Jun 10, 2017 09:04
[2017-06-08] MEDS ORDERED: LORazepam Inj 2mg/ml 1ml IM ONE (17:45)
[2017-06-08 19:15] VITALS: BP 142/83
[2017-06-08 19:29] LABS: APPEARANCE,URINE SLIGHTLY CLOUDY; KETONES,URINE 2+ (NEGATIVE); LEUKOCYTE ESTERASE ,URINE 2+ (NEGATIVE); NITRITE,URINE NEGATIVE (NEGATIVE); PH,URINE 5 (4.5-8.0); PROTEIN,URINE NEGATIVE (NEGATIVE); UROBILINOGEN,URINE NORMAL MG/DL (0.0-1.0)
[2017-06-08 19:41] LABS: BACTERIA,URINE MODERATE /HPF; SQUAMOUS EPITHELIAL CELL,UR MODERATE /LPF (NONE/OCC)
[2017-06-08 20:17] LABS: BASOPHILS % (AUTO) 1.8 % (0.0-2.0); EOSINOPHILS % (AUTO) 1.1 % (0.0-3.0); LYMPHOCYTES % (AUTO) 24.5 % (20.0-45.0); MEAN CORPUSCULAR HEMOGLOBIN 33.3 PG (27.0-31.0); MEAN CORPUSCULAR HGB CONC 32.3 G/DL (32.0-36.0); MEAN CORPUSCULAR VOLUME 103 FL (80-99); MEAN PLATELET VOLUME 7.7 FL (6.5-10.1); NEUTROPHILS % (AUTO) 65.6 % (45.0-75.0); PLATELET COUNT 242 K/UL (150-450); RED BLOOD COUNT 4.06 M/UL (4.20-5.40); RED CELL DISTRIBUTION WIDTH 11.5 % (11.6-14.8); WHITE BLOOD COUNT 9.5 K/UL (4.8-10.8)
[2017-06-08 20:36] LABS: ANION GAP 12 mmol/L (5-15); CALCIUM 9.5 MG/DL (8.5-10.1); CARBON DIOXIDE 24 MMOL/L (21-32); CHLORIDE 102 MMOL/L (98-107); CREATININE 0.8 MG/DL (0.55-1.30); GLOMERULAR FILTRATION RATE > 60 mL/min (>60); POTASSIUM 3.4 MMOL/L (3.5-5.1); SODIUM 138 MMOL/L (136-145)
[2017-06-08 20:41] LABS: ALANINE AMINOTRANSFERASE 12 U/L (12-78); ASPARTATE AMINO TRANSFERASE 16 U/L (15-37); TOTAL PROTEIN 8.6 G/DL (6.4-8.2)
[2017-06-08 21:15] VITALS: BP 138/79
[2017-06-08] MEDS ORDERED: Lidocaine 1% MPF 10mg/ml 5ml INJ ONE (21:15)
[2017-06-08 23:15] VITALS: BP 140/75
[2017-06-09] VITALS (9 sets, daily range): BP systolic 116–144; BP diastolic 71–86
[2017-06-10 03:30] VITALS: BP 121/82
[2017-06-10 07:07] VITALS: BP 125/76
[2017-06-10] MEDS ORDERED: MIRTAZAPINE45 M1 ORAL (07:29)
[2017-06-10] MEDS ORDERED: LORazepam Inj 2mg/ml 1ml IV ONE (07:30)
[2017-06-10 09:17] VITALS: BP 114/72
[2017-06-10 09:50] VITALS: BP 114/72
--- NOTE | 2017-06-18 17:58 | Cardiology Report ---
APPROVED REPORT EKG Measurement Heart [id number] Normal sinus rhythm Normal ECG
== END 2017-06-10 09:50 | disposition short-term general hospital (02) ==
LOC: EMR 17:35
DX: N39.0 Urinary tract infection, site not specified (principal); R41.82 Altered mental status, unspecified; G47.9 Sleep disorder, unspecified
CPT/HCPCS: 36415; 80053; 80307; 81001; 81025; 85025; 87086; 87181; 93005; 96372; 96374; 99285; J0696

== ENCOUNTER 2018-06-03 22:04 | Emergency (ER) | payer OTHER, MEDICAID ==
[~2018-06-03] VITALS: Ht 157.5 cm; Wt 79.4 kg
[~2018-06-03 22:04] MED LIST changes: +MIRTAZAPINE45 M1 ORAL
[2018-06-03 22:35] VITALS: BP 143/83
[2018-06-03] MEDS ORDERED: PRILOSEC OTC20 MG ORAL (23:02)
--- NOTE | 2018-06-03 23:03 | Emergency Room Report ---
History of Present Illness General Chief Complaint: General Complaint Source: Patient, Family Member, Medical Record Present Illness HPI Is a 42-year-old female with psychiatric issue. Brought in by mom with chief complaint of food stuck in stomach. After eating patient complaining of epigastric pain. was shaky. No fever chills but no nausea no vomiting. She has been in multiple ERs with different pain complaint. Allergies: Coded Allergies: No Known Allergies (Unverified , 11/26/12) Patient History Past Medical History: see triage record, old chart reviewed, psych hx Past Surgical History: other Pertinent Family History: none Social History: Denies: smoking Last Menstrual Period: 05/27/18 Now: No Immunizations: other Reviewed Nursing Documentation: PMH: Agreed; PSxH: Agreed Nursing Documentation-PMH Past Medical History: No History, Except For Hx Cardiac Problems: Yes - Fast heart beat Hx Hypertension: No Hx Pacemaker: No Hx Asthma: No Hx COPD: No Hx Diabetes: No Hx Cancer: No Hx Gastrointestinal Problems: No Hx Dialysis: No History Of Psychiatric Problem: Yes - Schizophrenia Hx Neurological Problems: No Hx Cerebrovascular Accident: No Hx Seizures: No Review of Systems Eye: Denies: eye pain, blurred vision ENT: Denies: ear pain, nose congestion, throat swelling Respiratory: Denies: cough, shortness of breath Cardiovascular: Reports: chest pain; Denies: palpitations Gastrointestinal: Denies: abdominal pain, diarrhea, nausea, vomiting Musculoskeletal: Denies: back pain, joint pain Skin: Denies: rash Neurological: Denies: headache, numbness Endocrine: Denies: increased thirst, increased urine Hematologic/Lymphatic: Denies: easy bruising All Other Systems: negative except mentioned in HPI Physical Exam Vital Signs Date Time Temp Pulse Resp B/P (MAP) Pulse Ox O2 Delivery O2 Flow Rate FiO2 06/03/18 22:06 97.3 128 16 153/87 94 Room Air 06/03/18 22:35 99 vitals normal Sp02 EP Interpretation: reviewed, normal General Appearance: well appearing, no apparent distress, alert Head: normocephalic, atraumatic Eyes: bilateral eye PERRL, bilateral eye EOMI ENT: hearing grossly normal, normal pharynx Neck: full range of motion, supple, no meningismus Respiratory: chest non-tender, lungs clear, normal breath sounds Cardiovascular #1: regular rate, rhythm, no murmur Gastrointestinal: normal bowel sounds, non tender, no mass, no organomegaly, no bruit, non-distended Musculoskeletal: back normal, gait/station normal, normal range of motion Psychiatric: mood/affect normal Skin: warm/dry Medical Decision Making Diagnostic Impression: Primary Impression: Gastritis Qualified Codes: K29.00 - Acute gastritis without bleeding ER Course Patient complaining of epigastric pain. May be gastritis. No evidence and obstruction. We'll discharge home. Last Vital Signs Date Time Temp Pulse Resp B/P (MAP) Pulse Ox O2 Delivery O2 Flow Rate FiO2 06/03/18 22:35 100 16 Room Air 99 06/03/18 22:35 97.2 143/83 94 Status: improved Disposition: HOME, SELF-CARE Condition: Stable Scripts Omeprazole Magnesium (PRILOSEC OTC) 20 Mg Tablet. 20 MG ORAL DAILY, #30 TAB Prov: Saeed Martinez MD 06/03/18 Additional Instructions: Follow-up with your doctor in 7 days. return it worse Saeed Martinez MD Jun 03, 2018 23:03
[2018-06-03 23:10] VITALS: BP 132/81
== END 2018-06-03 23:10 | disposition home or self-care (01) ==
LOC: EMR 22:49
DX: K29.00 Acute gastritis without bleeding (principal); F20.9 Schizophrenia, unspecified; R07.9 Chest pain, unspecified
CPT/HCPCS: 99282

== ENCOUNTER 2018-08-29 18:38 | Emergency (ER) | payer MEDICAID ==
[~2018-08-29] VITALS: Ht 162.6 cm; Wt 72.6 kg
[~2018-08-29 18:38] MED LIST changes: +PRILOSEC OTC20 MG ORAL
[2018-08-29] MEDS ORDERED: UNOBMED (18:39)
[2018-08-29] MEDS ORDERED: Mylanta II UD 30ml ORAL ONE (18:45)
--- NOTE | 2018-08-29 18:55 | NUR ---
ED Nurse Note: Pt BIBA from home due to complaints of chest pain. Pt lives with her mom. Pt is mentally disabled. Pt is rating the pain a 10/10 non radiating. Pt cannot state how long and how her chest pain started. A + O x4. Ambulatory. Skin warm to touch.
[2018-08-29 18:57] VITALS: BP 156/109
--- NOTE | 2018-08-29 19:02 | NUR ---
HAND-OFF: Report given to BRUNA Moe.
--- NOTE | 2018-08-29 19:05 | NUR ---
ED Nurse Note: ENDORSEMENT RECEIVED, PT IS CALM RESTING IN BED, PT WAS ABLE TO VOID, IS ON ROOM AIR 97%, WILL WAIT FOR FURTHER ORDERS FROM ERMD
[2018-08-29 19:19] VITALS: BP 160/107
[2018-08-29 19:30] LABS: ANION GAP 9 mmol/L (5-15); BLOOD UREA NITROGEN 11 mg/dL (7-18); CALCIUM 9.1 MG/DL (8.5-10.1); CARBON DIOXIDE 26 MMOL/L (21-32); CHLORIDE 101 MMOL/L (98-107); CREATININE 0.8 MG/DL (0.55-1.30); SODIUM 136 MMOL/L (136-145)
[2018-08-29 19:34] LABS: EOSINOPHILS % (AUTO) 2.4 % (0.0-3.0); HEMATOCRIT 41.2 % (37.0-47.0); HEMOGLOBIN 13.1 G/DL (12.0-16.0); LYMPHOCYTES % (AUTO) 15.3 % (20.0-45.0); MEAN CORPUSCULAR VOLUME 102 FL (80-99); MONOCYTES % (AUTO) 6.2 % (1.0-10.0); NEUTROPHILS % (AUTO) 74.2 % (45.0-75.0); PLATELET COUNT 223 K/UL (150-450); RED BLOOD COUNT 4.05 M/UL (4.20-5.40); RED CELL DISTRIBUTION WIDTH 12.5 % (11.6-14.8); WHITE BLOOD COUNT 10.5 K/UL (4.8-10.8)
[2018-08-29 19:38] LABS: APPEARANCE,URINE CLEAR; BILIRUBIN, URINE NEGATIVE (NEGATIVE); COLOR,URINE PALE YELLOW; GLUCOSE, URINE (UA) NEGATIVE (NEGATIVE); KETONES,URINE NEGATIVE (NEGATIVE); LEUKOCYTE ESTERASE ,URINE 2+ (NEGATIVE); NITRITE,URINE NEGATIVE (NEGATIVE); PH,URINE 5 (4.5-8.0); PROTEIN,URINE NEGATIVE (NEGATIVE); UROBILINOGEN,URINE NORMAL MG/DL (0.0-1.0)
[2018-08-29 19:40] LABS: ALANINE AMINOTRANSFERASE 14 U/L (12-78); ALBUMIN 3.9 G/DL (3.4-5.0); ALBUMIN/GLOBULIN RATIO 0.9 (1.0-2.7); ALKALINE PHOSPHATASE 79 U/L (46-116); ASPARTATE AMINO TRANSFERASE 14 U/L (15-37); BILIRUBIN,TOTAL 0.2 MG/DL (0.2-1.0); CREATINE KINASE 84 U/L (26-308)
--- NOTE | 2018-08-29 19:55 | NUR ---
ED Nurse Note: XRAY COMPLETED
--- NOTE | 2018-08-29 20:48 | NUR ---
ED Nurse Note: PT [facility] : [phone]
--- NOTE | 2018-08-29 20:50 | Emergency Room Report ---
History of Present Illness General Chief Complaint: Chest Pain Source: Patient Present Illness HPI Patient is brought to the emergency department by her mother. She is complaining about chest pain. She states it is pleuritic, positional worse when she is lying down but denies it being exertional. She is anxious and complains of the pain being 10/10. She has trouble describing the pain. She agrees with burning, pressure, aching amongst others. She denies fevers, chills , cough, sore throat, nausea, vomiting, diarrhea, dysuria. Cardiac risk factors: None Patient was seen in June and was given a diagnosis of gastritis. Patient has a history of schizophrenia is apparently taking her medications. She is been seen for migraines in the past. She denies headache now. Allergies: Coded Allergies: No Known Allergies (Unverified , 11/26/12) Patient History Past Medical History: see triage record, old chart reviewed Social History: Denies: smoking, alcohol use, drug use Social History Narrative Lives with mother Now: No Reviewed Nursing Documentation: PMH: Agreed; PSxH: Agreed Nursing Documentation-PMH Past Medical History: No History, Except For Hx Cardiac Problems: Yes - Fast heart beat Hx Hypertension: No Hx Pacemaker: No Hx Asthma: No Hx COPD: No Hx Diabetes: No Hx Cancer: No Hx Gastrointestinal Problems: No Hx Dialysis: No Hx Neurological Problems: No Hx Cerebrovascular Accident: No Hx Seizures: No Review of Systems All Other Systems: negative except mentioned in HPI Physical Exam Vital Signs Date Time Temp Pulse Resp B/P (MAP) Pulse Ox O2 Delivery O2 Flow Rate FiO2 08/29/18 18:23 97.9 78 16 157/97 100 Room Air 08/29/18 18:57 98 Sp02 EP Interpretation: reviewed, normal General Appearance: well appearing, no apparent distress, GCS 15 Head: normocephalic, atraumatic Eyes: bilateral eye normal inspection, bilateral eye PERRL ENT: moist mucus membranes Neck: supple Respiratory: lungs clear, normal breath sounds, other - Chest wall slightly tender Cardiovascular #1: regular rate, rhythm, no edema Cardiovascular #2: 2+ radial (R) Gastrointestinal: normal inspection, normal bowel sounds, non tender, no mass, non-distended, overweight Genitourinary: no CVA tenderness Musculoskeletal: back normal, gait/station normal, normal range of motion, no calf tenderness Neurologic: alert, grossly normal, oriented - X2 Psychiatric: anxious Skin: normal inspection, warm/dry Medical Decision Making Diagnostic Impression: Primary Impression: Atypical chest pain ER Course Patient presents with chest pain. Differential includes acute myocardial infarction, gastritis, GERD, esophageal spasm, anxiety, chest wall pain amongst others. Evaluation will be with EKG, chest x-ray and labs. The patient will be treated with aspirin and Mylanta. 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 EKG without injury. Chest x-ray no infiltrates. Labs unremarkable. No medical emergency at this time.Patient pain free after treatment. Patient is stable for outpatient observation and treatment. Discussed findings with patient. Laboratory Tests Test 08/29/18 18:45 08/29/18 19:08 White Blood Count 10.5 K/UL (4.8-10.8) Red Blood Count 4.05 M/UL (4.20-5.40) L Hemoglobin 13.1 G/DL (12.0-16.0) Hematocrit 41.2 % (37.0-47.0) Mean Corpuscular Volume 102 FL (80-99) H Mean Corpuscular Hemoglobin 32.2 PG (27.0-31.0) H Mean Corpuscular Hemoglobin Concent 31.7 G/DL (32.0-36.0) L Red Cell Distribution Width 12.5 % (11.6-14.8) Platelet Count 223 K/UL (150-450) Mean Platelet Volume 8.3 FL (6.5-10.1) Neutrophils (%) (Auto) 74.2 % (45.0-75.0) Lymphocytes (%) (Auto) 15.3 % (20.0-45.0) L Monocytes (%) (Auto) 6.2 % (1.0-10.0) Eosinophils (%) (Auto) 2.4 % (0.0-3.0) Basophils (%) (Auto) 2.0 % (0.0-2.0) Sodium Level 136 MMOL/L (136-145) Potassium Level 4.0 MMOL/L (3.5-5.1) Chloride Level 101 MMOL/L (98-107) Carbon Dioxide Level 26 MMOL/L (21-32) Anion Gap 9 mmol/L (5-15) Blood Urea Nitrogen 11 mg/dL (7-18) Creatinine 0.8 MG/DL (0.55-1.30) Estimate Glomerular Filtration Rate > 60 mL/min (>60) Glucose Level 128 MG/DL (74-106) H Calcium Level 9.1 MG/DL (8.5-10.1) Total Bilirubin 0.2 MG/DL (0.2-1.0) Aspartate Amino Transferase (AST) 14 U/L (15-37) L Alanine Aminotransferase (ALT) 14 U/L (12-78) Alkaline Phosphatase 79 U/L (46-116) Total Creatine Kinase 84 U/L (26-308) Troponin I 0.000 ng/mL (0.000-0.056) Pro-B-Type Natriuretic Peptide 35 pg/mL (0-125) Total Protein 8.2 G/DL (6.4-8.2) Albumin 3.9 G/DL (3.4-5.0) Globulin 4.3 g/dL Albumin/Globulin Ratio 0.9 (1.0-2.7) L Urine Opiates Screen Negative (NEGATIVE) Urine Barbiturates Screen Negative (NEGATIVE) Phencyclidine (PCP) Screen Negative (NEGATIVE) Urine Amphetamines Screen Negative (NEGATIVE) Urine Benzodiazepines Screen Negative (NEGATIVE) Urine Cocaine Screen Negative (NEGATIVE) Urine Marijuana (THC) Screen Negative (NEGATIVE) Urine Color Pale yellow Urine Appearance Clear Urine pH 5 (4.5-8.0) Urine Specific [place] 1.020 (1.005-1.035) Urine Protein Negative (NEGATIVE) Urine Glucose (UA) Negative (NEGATIVE) Urine Ketones Negative (NEGATIVE) Urine Blood Negative (NEGATIVE) Urine Nitrite Negative (NEGATIVE) Urine Bilirubin Negative (NEGATIVE) Urine Urobilinogen Normal MG/DL (0.0-1.0) Urine Leukocyte Esterase 2+ (NEGATIVE) H Urine RBC 0-2 /HPF (0 - 2) Urine WBC 2-4 /HPF (0 - 2) Urine Squamous Epithelial Cells Few /LPF (NONE/OCC) Urine Bacteria Few /HPF (NONE) Urine HCG, Qualitative Negative (NEGATIVE) EKG Diagnostic Results Rate: normal Rhythm: NSR ST Segments: no acute changes Rhythm Strip Diag. Results EP Interpretation: yes Rhythm: NSR, no PVC's, no ectopy Chest X-Ray Diagnostic Results Chest X-Ray Diagnostic Results : Chest X-Ray Ordered: Yes # of Views/Limited/Complete: 1 View Indication: Chest Pain Interpretation: no consolidation, no effusion, no pneumothorax, other - Heart upper limits of normal Impression: No acute disease Electronically Signed by: Electronically signed by Morgan Kay MD Last Vital Signs Date Time Temp Pulse Resp B/P (MAP) Pulse Ox O2 Delivery O2 Flow Rate FiO2 08/29/18 21:30 97.7 96 15 146/94 100 Room Air 98 Status: improved Disposition: HOME, SELF-CARE Condition: Improved Scripts Mag Hydrox/Al Hydrox/Simeth (MAALOX MAXIMUM STRENGTH SUSP) 355 Ml Oral.susp 30 ML PO Q6HR PRN for epigastric pain, #355 ML Prov: Morgan Kay MD 08/29/18 Famotidine (PEPCID AC) 20 Mg Tablet 20 MG PO DAILY, #30 TAB Prov: Morgan Kay MD 08/29/18 Morgan Kay MD Aug 29, 2018 20:50
[2018-08-29 20:52] VITALS: BP 146/94
[2018-08-29] MEDS ORDERED: MAALOX MAXIMUM355 M1 PO (20:53)
[2018-08-29] MEDS ORDERED: PEPCID AC20 M2 PO (20:53)
[2018-08-29 21:30] VITALS: BP 146/94
--- NOTE | 2018-08-29 21:30 | NUR ---
ED Nurse Note: pt is dc per ermd order, pt is aox4, pt was given dc instruction and prescription, pt verbalized understandng, pt is able to walk with steady gait, pt took all belonings pt is on room air. pt left dc papers and prescription at bedside, pt took taxi home.
--- NOTE | 2018-08-30 08:51 | Diagnostic Imaging Report ---
Indication: Cough Technique: One view of the chest Comparison: 05/05/2017 Findings: Suboptimal inspiration. Linear bands, likely scarring, are again demonstrated in the left perihilar region. The pleural spaces are otherwise clear. Heart size is upper limits of normal. Impression: No acute process
--- NOTE | 2018-08-30 16:53 | Cardiology Report ---
APPROVED REPORT EKG Measurement Heart [id number] Normal sinus rhythm Normal ECG
== END 2018-08-29 21:30 | disposition home or self-care (01) ==
LOC: EDBD 18:38 → EMR 19:08
DX: R07.89 Other chest pain (principal)
CPT/HCPCS: 36415; 71045; 80053; 80307; 81003; 81025; 82550; 83880; 84484; 85025; 93005; 99283

== ENCOUNTER 2018-09-20 18:22 | Emergency (ER) | payer MEDICARE, MEDICAID ==
[~2018-09-20] VITALS: Ht 157.5 cm; Wt 73.9 kg
--- NOTE | 2018-09-20 18:19 | NUR ---
ED Nurse Note: PT'S MOTHER, NAMED SON: [phone]
[~2018-09-20 18:22] MED LIST changes: +MAALOX MAXIMUM355 M1 PO; +PEPCID AC20 M2 PO; +UNOBMED
--- NOTE | 2018-09-20 18:22 | NUR ---
ED Nurse Note: Patient biba from home c/o chest pain, 10 pleuritic chest pain. patient states that the pain has been on going for about 1 hr. patient is alert and oriented.
[2018-09-20 18:30] VITALS: BP 143/96
[2018-09-20] MEDS ORDERED: Albuterol/Ipratropium 3ml neb HHN ONE (19:15)
[2018-09-20] MEDS ORDERED: ALBUTEROL SULF8.5 GM INH (20:14)
[2018-09-20 20:15] VITALS: BP 129/78
--- NOTE | 2018-09-20 20:15 | NUR ---
ER DISCHARGE NOTE: Patient is cleared to be discharged per ERMD, pt is aox4, on room air, with stable vital signs. pt was given dc and prescription instructions, pt was able to verbalize understanding, pt id band removed without complications. pt is able to ambulate with steady gait. pt took all belongings. Patient's method of discharge home is via taxi voucher, verified address with patient as well
--- NOTE | 2018-09-21 10:06 | Diagnostic Imaging Report ---
Indication: Shortness of breath Technique: One view of the chest Comparison: 08/29/2018 Findings: Minimal linear scarring is seen on the left. Lungs and pleural spaces are otherwise clear. Heart size is normal . No significant interim change Impression: No acute process
--- NOTE | 2018-09-21 14:31 | Emergency Room Report ---
History of Present Illness General Chief Complaint: Chest Pain Source: Patient Present Illness HPI Patient is a 43-year-old female presented after increased chest discomfort. She patient reports having increased nonproductive cough. She reports having a mild sore throat. She states she been having some increased difficulty with breathing. She denies any prior cardiac history. Patient was brought in by EMS.She denies any exertional chest pain. Allergies: Coded Allergies: No Known Allergies (Unverified , 11/26/12) Patient History Past Medical History: see triage record Now: No - UNKNOWN Reviewed Nursing Documentation: PMH: Agreed; PSxH: Agreed Nursing Documentation-PMH Past Medical History: No History, Except For Hx Cardiac Problems: Yes - Fast heart beat Hx Hypertension: No Hx Pacemaker: No Hx Asthma: No Hx COPD: No Hx Diabetes: No Hx Cancer: No Hx Gastrointestinal Problems: No Hx Dialysis: No History Of Psychiatric Problem: Yes - SCHIZO Hx Neurological Problems: No Hx Cerebrovascular Accident: No Hx Seizures: No Review of Systems All Other Systems: negative except mentioned in HPI Physical Exam Vital Signs Date Time Temp Pulse Resp B/P (MAP) Pulse Ox O2 Delivery O2 Flow Rate FiO2 09/20/18 18:15 97.5 117 18 143/96 94 Room Air 09/20/18 19:31 21 General Appearance: well appearing, no apparent distress, alert, GCS 15, Chronically Ill Head: normocephalic, atraumatic ENT: hearing grossly normal, normal voice Neck: full range of motion, supple Respiratory: no respiratory distress, speaking full sentences Gastrointestinal: normal inspection Musculoskeletal: normal inspection, back normal, digits/nails normal, no calf tenderness Neurologic: normal inspection, alert, oriented x3 Psychiatric: depressed affect Skin: no rash Medical Decision Making Diagnostic Impression: Primary Impression: Bronchitis ER Course Presented for chest discomfort. Differential diagnosis include was not limited to myocardial infarction, pneumonia, bronchitis, viral respiratory infection among others. EKG interpreted by me showed normal sinus rhythm without acute ST or T wave changes. Chest x-ray 1 view showed no evidence of acute infiltrate or pneumonia.Patient was noted to have some mild wheezing. She was given breathing treatment with improvement. Patient appears to have a viral respiratory infection. Patient given prescription for inhaler. She is advised to follow-up with her primary care physician. Microbiology Date/Time Source Procedure Growth Status 09/20/18 19:20 Nasal Nares Influenza Types A,B Antigen (PABLO) - Final Complete EKG Diagnostic Results Rate: normal Rhythm: NSR ST Segments: no acute changes Last Vital Signs Date Time Temp Pulse Resp B/P (MAP) Pulse Ox O2 Delivery O2 Flow Rate FiO2 09/20/18 20:15 97.5 95 24 129/78 99 Room Air 21 Status: improved Disposition: HOME, SELF-CARE Condition: Stable Scripts Albuterol Sulfate* (ALBUTEROL SULFATE MDI*) 8.5 Gm Hfa.aer.ad 2 PUFF INH Q4H PRN for cough/wheezing, #1 EA 0 Refills Prov: Kike Rosales MD 09/20/18 Patient Instructions: Viral Respiratory Infection Kike Rosales MD Sep 21, 2018 14:31
== END 2018-09-20 20:15 | disposition home or self-care (01) ==
LOC: EDBD 18:22 → EMR 18:58
DX: J40 Bronchitis, not specified as acute or chronic (principal); F20.9 Schizophrenia, unspecified
CPT/HCPCS: 71045; 86710; 93005; 94640; 94664; 99284; J7620

== ENCOUNTER 2018-09-23 17:27 | Emergency (ER) | payer MEDICARE, MEDICAID ==
[~2018-09-23] VITALS: Ht 160 cm; Wt 81.6 kg
[2018-09-23 17:40] VITALS: BP 158/86
--- NOTE | 2018-09-23 17:40 | NUR ---
ED Nurse Note: pt brought in by [facility] c/o sudden onset epigastric/substernal pain x 1 hr and back pain, pt states she was in the ER before for same pain couple days ago. denies n/v/d nor sob. pt AA&ox4, gcs=15, skin warm and dry, resp even and unlabored on RA, no sx resp distress, -n/v/d, ambulates w/ steady gait, will cont monitor. VSS, NSR on cardiac sonographer. warm blanket provided for comfort.
[2018-09-23] MEDS ORDERED: Mylanta II UD 30ml ORAL ONE (17:45)
[2018-09-23 17:48] LABS: BASOPHILS % (AUTO) 2.5 % (0.0-2.0); EOSINOPHILS % (AUTO) 1.5 % (0.0-3.0); HEMATOCRIT 42.7 % (37.0-47.0); HEMOGLOBIN 13.7 G/DL (12.0-16.0); LYMPHOCYTES % (AUTO) 22.3 % (20.0-45.0); MEAN CORPUSCULAR VOLUME 100 FL (80-99); MONOCYTES % (AUTO) 6.9 % (1.0-10.0); NEUTROPHILS % (AUTO) 66.7 % (45.0-75.0); PLATELET COUNT 216 K/UL (150-450); RED BLOOD COUNT 4.28 M/UL (4.20-5.40); WHITE BLOOD COUNT 8.1 K/UL (4.8-10.8)
--- NOTE | 2018-09-23 17:48 | Emergency Room Report ---
History of Present Illness General Chief Complaint: Chest Pain Source: Patient, EMS Present Illness HPI Patient presents with anxiety and left-sided chest pain. She's been evaluated multiple times here for similar symptoms. She has developmental delay and therefore her description of chest pain is variable. She states it's burning, acid-like, pressure, somewhat pleuritic and positional. She denies any fevers, chills, cough. She was transported by paramedics. No fevers, chills, palpitations, nausea, vomiting, diarrhea, dysuria, abdominal pain, shortness of breath, depression, visual changes, headache. Patient was most recently evaluated on September 20 and treated for bronchitis. Prior to that she was seen for atypical chest pain on August 29. Symptoms were similar to today. Allergies: Coded Allergies: No Known Allergies (Unverified , 11/26/12) Patient History Past Medical History: see triage record, old chart reviewed Social History: Denies: smoking, alcohol use, drug use Social History Narrative lives with her mother Last Menstrual Period: Unknown Now: No Reviewed Nursing Documentation: PMH: Agreed; PSxH: Agreed Nursing Documentation-PMH Hx Cardiac Problems: Yes - Fast heart beat Hx Hypertension: No Hx Pacemaker: No Hx Asthma: No Hx COPD: No Hx Diabetes: No Hx Cancer: No Hx Gastrointestinal Problems: No Hx Dialysis: No History Of Psychiatric Problem: Yes - Anxiety, Schizophrenia Hx Neurological Problems: No Hx Cerebrovascular Accident: No Hx Seizures: No Review of Systems All Other Systems: negative except mentioned in HPI Physical Exam Vital Signs Date Time Temp Pulse Resp B/P (MAP) Pulse Ox O2 Delivery O2 Flow Rate FiO2 09/23/18 17:17 97.3 97 18 160/104 95 Room Air Sp02 EP Interpretation: reviewed, normal General Appearance: well appearing, no apparent distress, GCS 15, other - Patient asking to go home now Head: normocephalic, atraumatic Eyes: bilateral eye normal inspection, bilateral eye PERRL, bilateral eye EOMI ENT: moist mucus membranes Neck: supple Respiratory: chest non-tender, lungs clear, normal breath sounds Cardiovascular #1: regular rate, rhythm Cardiovascular #2: 2+ radial (R) Gastrointestinal: normal inspection, normal bowel sounds, non tender, no mass, non-distended Musculoskeletal: back normal, gait/station normal, normal range of motion, no calf tenderness, Kira's Sign negative Neurologic: alert, motor strength/tone normal, normal gait, oriented - X2 Psychiatric: mood/affect normal, other - Poor insight and slightly anxious Skin: normal inspection, warm/dry Medical Decision Making Diagnostic Impression: Primary Impression: Atypical chest pain Additional Impressions: UTI (urinary tract infection) Qualified Codes: N30.00 - Acute cystitis without hematuria Development delay ER Course Patient presents with atypical chest pain. Differential includes acute coronary syndrome, costochondritis, GERD, anxiety amongst others. Evaluation will be with EKG, chest x-ray and labs. The patient will be treated with Pepcid , Mylanta and Tylenol. EKG without injury. Chest x-ray unremarkable. Labs unremarkable with negative troponin. Pyuria is present and Macrobid is begun. Patient is pain-free at this time. Evaluation and findings were discussed with the mother and the patient. Treatment plan was also discussed. Patient was stable for outpatient observation and treatment. Laboratory Tests Test 09/23/18 17:30 09/23/18 17:35 Urine Color Yellow Urine Appearance Clear Urine pH 6.5 (4.5-8.0) Urine Specific [place] 1.015 (1.005-1.035) Urine Protein Negative (NEGATIVE) Urine Glucose (UA) Negative (NEGATIVE) Urine Ketones Negative (NEGATIVE) Urine Blood Negative (NEGATIVE) Urine Nitrite Negative (NEGATIVE) Urine Bilirubin Negative (NEGATIVE) Urine Urobilinogen Normal MG/DL (0.0-1.0) Urine Leukocyte Esterase 3+ (NEGATIVE) H Urine RBC 0 /HPF (0 - 2) Urine WBC 20-30 /HPF (0 - 2) H Urine Squamous Epithelial Cells Moderate /LPF (NONE/OCC) H Urine Bacteria Moderate /HPF (NONE) H White Blood Count 8.1 K/UL (4.8-10.8) Red Blood Count 4.28 M/UL (4.20-5.40) Hemoglobin 13.7 G/DL (12.0-16.0) Hematocrit 42.7 % (37.0-47.0) Mean Corpuscular Volume 100 FL (80-99) H Mean Corpuscular Hemoglobin 31.9 PG (27.0-31.0) H Mean Corpuscular Hemoglobin Concent 32.0 G/DL (32.0-36.0) Red Cell Distribution Width 12.0 % (11.6-14.8) Platelet Count 216 K/UL (150-450) Mean Platelet Volume 8.4 FL (6.5-10.1) Neutrophils (%) (Auto) 66.7 % (45.0-75.0) Lymphocytes (%) (Auto) 22.3 % (20.0-45.0) Monocytes (%) (Auto) 6.9 % (1.0-10.0) Eosinophils (%) (Auto) 1.5 % (0.0-3.0) Basophils (%) (Auto) 2.5 % (0.0-2.0) H Prothrombin Time 11.0 SEC (9.30-11.50) Prothrombin Time INR 1.0 (0.9-1.1) PTT 31 SEC (23-33) Sodium Level 138 MMOL/L (136-145) Potassium Level 3.7 MMOL/L (3.5-5.1) Chloride Level 102 MMOL/L (98-107) Carbon Dioxide Level 28 MMOL/L (21-32) Anion Gap 9 mmol/L (5-15) Blood Urea Nitrogen 11 mg/dL (7-18) Creatinine 0.9 MG/DL (0.55-1.30) Estimate Glomerular Filtration Rate > 60 mL/min (>60) Glucose Level 127 MG/DL (74-106) H Calcium Level 9.6 MG/DL (8.5-10.1) Total Bilirubin 0.2 MG/DL (0.2-1.0) Aspartate Amino Transferase (AST) 10 U/L (15-37) L Alanine Aminotransferase (ALT) 17 U/L (12-78) Alkaline Phosphatase 72 U/L (46-116) Total Creatine Kinase 101 U/L (26-308) Troponin I 0.002 ng/mL (0.000-0.056) Pro-B-Type Natriuretic Peptide 16 pg/mL (0-125) Total Protein 8.4 G/DL (6.4-8.2) H Albumin 4.0 G/DL (3.4-5.0) Globulin 4.4 g/dL Albumin/Globulin Ratio 0.9 (1.0-2.7) L EKG Diagnostic Results Rate: normal Rhythm: NSR ST Segments: no acute changes Rhythm Strip Diag. Results EP Interpretation: yes Rhythm: NSR, no PVC's, no ectopy Chest X-Ray Diagnostic Results Chest X-Ray Diagnostic Results : Chest X-Ray Ordered: Yes # of Views/Limited/Complete: 1 View Indication: Chest Pain EP Interpretation: Yes Interpretation: no consolidation, no effusion, no pneumothorax, other - min atelectasis L base Impression: No acute disease Electronically Signed by: Electronically signed by Morgan Kay MD Last Vital Signs Date Time Temp Pulse Resp B/P (MAP) Pulse Ox O2 Delivery O2 Flow Rate FiO2 09/23/18 21:22 98.0 88 18 143/78 100 Room Air Status: improved Disposition: HOME, SELF-CARE Condition: Improved Scripts Nitrofurantoin Monohyd/M-Cryst* (MACROBID 100 MG*) 100 Mg Capsule 100 MG ORAL EVERY 12 HOURS, #14 CAP Prov: Morgan Kay MD 09/23/18 Acetaminophen (Tylenol) 325 Mg Tablet 650 MG ORAL Q6H PRN for Prn Pain/Headache/Temp > 101, #30 TAB 0 Refills Prov: Morgan Kay MD 09/23/18 Famotidine (PEPCID AC) 20 Mg Tablet 20 MG PO DAILY, #20 TAB Prov: Morgan Kay MD 09/23/18 Morgan Kay MD Sep 23, 2018 17:48
[2018-09-23 18:14] LABS: ANION GAP 9 mmol/L (5-15); BLOOD UREA NITROGEN 11 mg/dL (7-18); CALCIUM 9.6 MG/DL (8.5-10.1); CARBON DIOXIDE 28 MMOL/L (21-32); CHLORIDE 102 MMOL/L (98-107); CREATININE 0.9 MG/DL (0.55-1.30); POTASSIUM 3.7 MMOL/L (3.5-5.1); SODIUM 138 MMOL/L (136-145)
[2018-09-23 18:25] LABS: ALANINE AMINOTRANSFERASE 17 U/L (12-78); ALBUMIN/GLOBULIN RATIO 0.9 (1.0-2.7); ALKALINE PHOSPHATASE 72 U/L (46-116); ASPARTATE AMINO TRANSFERASE 10 U/L (15-37); BILIRUBIN,TOTAL 0.2 MG/DL (0.2-1.0); CREATINE KINASE 101 U/L (26-308)
[2018-09-23 18:32] LABS: APPEARANCE,URINE CLEAR; BILIRUBIN, URINE NEGATIVE (NEGATIVE); GLUCOSE, URINE (UA) NEGATIVE (NEGATIVE); KETONES,URINE NEGATIVE (NEGATIVE); LEUKOCYTE ESTERASE ,URINE 3+ (NEGATIVE); NITRITE,URINE NEGATIVE (NEGATIVE); PH,URINE 6.5 (4.5-8.0); PROTEIN,URINE NEGATIVE (NEGATIVE); UROBILINOGEN,URINE NORMAL MG/DL (0.0-1.0)
[2018-09-23 18:34] LABS: COLOR,URINE YELLOW
--- NOTE | 2018-09-23 19:10 | NUR ---
ED Nurse Note: Received Pt and report from day shift. Assist Pt to restroom, Pt VSS, on room air no distress.
--- NOTE | 2018-09-23 19:14 | NUR ---
ED Nurse Note: report given to BRUNA Arredondo and endorsed care. pt vss, resp even and unlabored on RA. ambulatory w/ steady gait.
--- NOTE | 2018-09-23 19:31 | Diagnostic Imaging Report ---
EXAM: XR Chest, 1 View CLINICAL HISTORY: CP TECHNIQUE: Frontal view of the chest. COMPARISON: No relevant prior studies available. FINDINGS: Lungs: Reduced lung volumes with basilar atelectasis/pneumonitis, left greater than right. Pleural space: Unremarkable. No pneumothorax. Heart: Unremarkable. No cardiomegaly. Mediastinum: Unremarkable. Bones/joints: No acute fracture. IMPRESSION: Reduced lung volumes with basilar atelectasis/pneumonitis, left greater than right.
--- NOTE | 2018-09-23 20:30 | NUR ---
Attempt to contact Valorie Benitez Cha @ [phone] - mailbox is not taking messages. Will try again later.
--- NOTE | 2018-09-23 20:39 | NUR ---
Valorie Benitez Cha called back , speaking with .
--- NOTE | 2018-09-23 21:00 | NUR ---
[facility] declined transport, Taxi voucher obtained- is OK to sent patient home by Taxi.
[2018-09-23 21:09] VITALS: BP 143/78
[2018-09-23] MEDS ORDERED: NITROFURANTOIN100 M2 ORAL (21:13)
[2018-09-23] MEDS ORDERED: TYLENOL325 MG ORAL (21:13)
[2018-09-23] MEDS ORDERED: PEPCID AC20 M2 PO (21:13)
--- NOTE | 2018-09-23 21:16 | NUR ---
ED Nurse Note: Knowing Pt will go home by [facility] IV site.
--- NOTE | 2018-09-23 21:21 | NUR ---
ER DISCHARGE NOTE: Patient is cleared to be discharged per ERMD, pt is aox4, on room air, with stable vital signs. pt was given dc and prescription instructions, pt was able to verbalize understanding, pt id band removed without complications. pt is able to ambulate with steady gait. pt took all belongings. Pt went home by Taxi.
[2018-09-23 21:22] VITALS: BP 143/78
== END 2018-09-23 21:22 | disposition home or self-care (01) ==
LOC: EDBD 17:27 → EMR 21:15
DX: R07.89 Other chest pain (principal); N39.0 Urinary tract infection, site not specified; R62.50 Unspecified lack of expected normal physiological development in childhood; R00.0 Tachycardia, unspecified; F41.9 Anxiety disorder, unspecified
CPT/HCPCS: 36415; 71045; 80053; 81003; 82550; 83880; 84484; 85025; 85610; 85730; 87086; 93005; 96374; 99284; S0028

== ENCOUNTER 2018-09-29 20:17 | Emergency (ER) | payer MEDICARE, MEDICAID ==
[~2018-09-29] VITALS: Ht 160 cm; Wt 72.6 kg
[~2018-09-29 20:17] MED LIST changes: +NITROFURANTOIN100 M2 ORAL; +TYLENOL325 MG ORAL
--- NOTE | 2018-09-29 20:20 | NUR ---
ED Nurse Note: Unable to sleep- patient seen here on 09/23/18.
[2018-09-29 20:30] VITALS: BP 133/84
[2018-09-29] MEDS ORDERED: LORazepam 1mg tab ORAL ONE (20:30)
[2018-09-29] MEDS ORDERED: ATIVAN1 MG ORAL (20:54)
[2018-09-29 21:07] VITALS: BP 134/79
--- NOTE | 2018-09-29 21:07 | NUR ---
ER DISCHARGE NOTE: Patient is cleared to be discharged per ERMD, pt is aox4, on room air, with stable vital signs. pt was given dc instructions, pt was able to verbalize understanding, pt id band removed. pt is able to ambulate with steady gait. pt took all belongings.
--- NOTE | 2018-09-29 22:03 | Emergency Room Report ---
History of Present Illness General Chief Complaint: General Complaint Source: Patient, EMS Present Illness HPI Patient has a history anxiety and schizophrenia. Patient has been to the hospital multiple times for anxiety. Patient presents today complaining of severe anxiety and difficulty sleeping. Patient states that she feels palpitations. She however denies suicidal or homicidal ideation auditory or visual hallucinations. No other complaints are noted. Symptoms noted to be moderate. No other modifying factors. No other associated signs and symptoms. No other complaints were noted. Allergies: Coded Allergies: No Known Allergies (Unverified , 11/26/12) Patient History Past Medical History: psych hx - Schizophrenia, anxiety, other - Palpitations Past Surgical History: none Pertinent Family History: none Social History: Denies: smoking, alcohol use, drug use Reviewed Nursing Documentation: PMH: Agreed; PSxH: Agreed Nursing Documentation-PMH Past Medical History: No History, Except For Hx Cardiac Problems: Yes - Fast heart beat Hx Hypertension: No Hx Pacemaker: No Hx Asthma: No Hx COPD: No Hx Diabetes: No Hx Cancer: No Hx Gastrointestinal Problems: Yes Hx Dialysis: No History Of Psychiatric Problem: Yes Hx Neurological Problems: No Hx Cerebrovascular Accident: No Hx Seizures: No Review of Systems All Other Systems: negative except mentioned in HPI Physical Exam Vital Signs Date Time Temp Pulse Resp B/P (MAP) Pulse Ox O2 Delivery O2 Flow Rate FiO2 09/29/18 20:22 98.4 92 16 133/84 99 Room Air Sp02 EP Interpretation: reviewed, normal General Appearance: normal inspection, well appearing, no apparent distress, alert Head: atraumatic Eyes: bilateral eye normal inspection ENT: normal ENT inspection, hearing grossly normal, normal voice Neck: normal inspection, full range of motion, supple, no bony tend Respiratory: normal inspection, lungs clear, normal breath sounds, no respiratory distress, no retraction, no wheezing Cardiovascular #1: regular rate, rhythm, no edema Gastrointestinal: normal inspection, normal bowel sounds, non tender, soft, no guarding, no hernia Genitourinary: no CVA tenderness Musculoskeletal: normal inspection, back normal, normal range of motion Neurologic: normal inspection, alert, responsive, speech normal Psychiatric: depressed affect, anxious Skin: normal inspection, normal color, no rash Medical Decision Making Diagnostic Impression: Primary Impression: Anxiety ER Course Patient presents emergency department today complaining of anxiety. Differential diagnoses include anxiety, schizophrenia, palpitations is name a few. Patient's exam showed benign. Review medical records show the patient was just recently and had extensive workup including cardiac workup. EKG was obtained which was normal. Patient was given Ativan with improvement symptoms. We'll provide prescription of Ativan recommend outpatient follow-up and counseling.Patient is advised to follow up with primary doctor in 2-3 days and return the emergency room for any worsening symptoms and as needed. EKG Diagnostic Results Rate: normal Rhythm: NSR ST Segments: no acute changes Rhythm Strip Diag. Results EP Interpretation: yes Rate: 90s Rhythm: NSR, no PVC's, no ectopy Last Vital Signs Date Time Temp Pulse Resp B/P (MAP) Pulse Ox O2 Delivery O2 Flow Rate FiO2 09/29/18 20:30 92 16 Room Air 09/29/18 20:30 98.4 133/84 99 Status: improved Disposition: HOME, SELF-CARE Condition: Stable Scripts Lorazepam* (ATIVAN*) 1 Mg Tablet 1 MG ORAL BEDTIME, #5 TAB Prov: Mack Franklin MD 09/29/18 Ref[facility]: [facility] (PCP) Patient Instructions: Insomnia, Panic Attacks Mack Franklin MD Sep 29, 2018 22:03
== END 2018-09-29 21:07 | disposition home or self-care (01) ==
LOC: EDBD 20:17 → EMR 20:34
DX: F41.9 Anxiety disorder, unspecified (principal); F20.9 Schizophrenia, unspecified; R00.2 Palpitations
CPT/HCPCS: 93005; 99282

== ENCOUNTER 2018-10-04 16:22 | Emergency (ER) | payer MEDICARE, MEDICAID ==
[~2018-10-04] VITALS: Ht 152.4 cm; Wt 56.7 kg
[~2018-10-04 16:22] MED LIST changes: +ATIVAN1 MG ORAL
--- NOTE | 2018-10-04 16:29 | NUR ---
ED Nurse Note: PT BROUGHT IN BY R861 FROM HOME. AOX4. PT C/O ANXIETY AND PALPITATIONS X TODAY. PT STATES SHE HAS NO OTHER SYMPTOMS. PT STATES HAS HX OF ANXIETY. PT DENIES PAIN AND AMBULATES WITH STEADY GAIT. PT IN NO APPARENT DISTRESS. PT LAYING PEACEFULLY IN BED. PT ASKING, "CAN I GO HOME NOW?" WHILE LAYING IN BED.
--- NOTE | 2018-10-04 16:29 | NUR ---
Note lang in EDM - 10/04/18 at 1644 by KEIRY ED Nurse Note: PT BROUGHT IN BY R861 FROM HOME. AOX4. PT C/O ANXIETY AND PALPITATIONS X TODAY. PT STATES SHE HAS NO OTHER SYMPTOMS. PT STATES HAS HX OF ANXIETY. PT DENIES PAIN AND AMBULATES WITH STEADY GAIT.
[2018-10-04 16:36] VITALS: BP 128/84
--- NOTE | 2018-10-04 17:05 | Emergency Room Report ---
History of Present Illness General Chief Complaint: General Complaint Present Illness HPI 33-year-old female presents to the emergency department brought by ambulance for complaint of palpitations/anxiety. Patient reports history of anxiety in the past and that she was previously prescribed some antianxiety medications. Patient denies drug use denies fevers, chills, dizziness or syncope. Patient denies heart conditions.Denies CP, Palpitations, LOC, AMS, Changes in Vision, Sensation, paresthesias, or a sudden severe headache. Denies recent travel, immobilization or estrogen use. Allergies: Coded Allergies: No Known Allergies (Unverified , 11/26/12) Patient History Past Medical History: see triage record, psych hx Past Surgical History: none Pertinent Family History: none Now: No Reviewed Nursing Documentation: PMH: Agreed; PSxH: Agreed Nursing Documentation-PMH Hx Cardiac Problems: Yes Hx Hypertension: No Hx Pacemaker: No Hx Asthma: No Hx COPD: No Hx Diabetes: No Hx Cancer: No Hx Gastrointestinal Problems: Yes Hx Dialysis: No History Of Psychiatric Problem: Yes Hx Neurological Problems: No Hx Cerebrovascular Accident: No Hx Seizures: No Review of Systems All Other Systems: negative except mentioned in HPI Physical Exam Vital Signs Date Time Temp Pulse Resp B/P (MAP) Pulse Ox O2 Delivery O2 Flow Rate FiO2 10/04/18 16:26 98.4 98 16 134/90 99 Room Air Sp02 EP Interpretation: reviewed, normal General Appearance: no apparent distress, alert, GCS 15, non-toxic Head: normocephalic, atraumatic Eyes: bilateral eye normal inspection, bilateral eye PERRL ENT: hearing grossly normal, normal voice Neck: full range of motion Respiratory: chest non-tender, lungs clear, normal breath sounds, no respiratory distress, no accessory muscle use, no wheezing, speaking full sentences Cardiovascular #1: regular rate, rhythm, no edema Musculoskeletal: back normal, gait/station normal, normal range of motion, non- tender Neurologic: alert, oriented x3, responsive, motor strength/tone normal, sensory intact, speech normal, grossly normal Psychiatric: judgement/insight normal, anxious Skin: normal color, no rash, warm/dry, well hydrated Lymphatic: no adenopathy Medical Decision Making PA Attestation Dr. Avila is my supervising Physician whom patient management has been discussed with. Diagnostic Impression: Primary Impression: Anxiety Additional Impression: Palpitations ER Course 33-year-old female presents to the emergency department brought by ambulance for complaint of palpitations/anxiety. Patient reports history of anxiety in the past and that she was previously prescribed some antianxiety medications. Patient denies drug use denies fevers, chills, dizziness or syncope. Patient denies heart conditions.Denies CP, Palpitations, LOC, AMS, Changes in Vision, Sensation, paresthesias, or a sudden severe headache. Denies recent travel, immobilization or estrogen use. This patient was seen here last month for similar symptoms drug testing was negative and patient improved with Ativan. This patient has a flattened affect and appears to have secondary psychological conditions she reports that she is on additional medications however she cannot recall the names. Ddx considered but are not limited to anxiety, SD, PE, asthma, thyroid storm, hyperthyroid, EPS Vital signs: are WNL, pt. is afebrile H&PE are most consistent with anxiety attack ORDERS: none required at this time, the diagnosis is clinical ED INTERVENTIONS: - 1mg Ativan PO PT. is requesting to leave, stating her symptoms have resolved, and she declines further work-up or evaluation. DISCHARGE: At this time pt. is stable for d/c to home. Will provide printed patient care instructions, and any necessary prescriptions. Care plan and follow up instructions have been discussed with the patient prior to discharge. EKG Diagnostic Results EP Interpretation: Dr. Avila Rate: normal - 99 BPM Rhythm: NSR ST Segments: no acute changes ASA given to the pt in ED: No PA Scribe Text This Interpretation was scribed by SABRINA Shelton. Last Vital Signs Date Time Temp Pulse Resp B/P (MAP) Pulse Ox O2 Delivery O2 Flow Rate FiO2 10/04/18 16:36 92 17 Room Air 10/04/18 16:36 98.2 128/84 99 Status: improved Disposition: HOME, SELF-CARE Condition: Stable Referrals: [facility] (PCP) [facility] Patient Instructions: Palpitations, [id number] Additional Instructions: Take medications as directed. Follow up with a Mental Health Specialist/ Psychiatrist in 3 days, even if your symptoms have resolved. --Please review [facility] resource information provided Return sooner to ED if new symptoms occur, or current symptoms become worse. - Please note that this Emergency Department Report was dictated using [employer] technology software, occasionally this can lead to erroneous entry secondary to interpretation by the dictation equipment. Michelle Shelton Oct 04, 2018 17:05
[2018-10-04] MEDS ORDERED: LORazepam 0.5mg tab ORAL ONE (17:15)
[2018-10-04 17:29] VITALS: BP 124/82
--- NOTE | 2018-10-07 00:07 | Cardiology Report ---
APPROVED REPORT EKG Measurement Heart [id number] Normal sinus rhythm Nonspecific ST abnormality Abnormal ECG
== END 2018-10-04 17:32 | disposition home or self-care (01) ==
LOC: EDBD 16:22 → EMR 16:35
DX: F41.9 Anxiety disorder, unspecified (principal); R20.2 Paresthesia of skin
CPT/HCPCS: 93005; 99283

== ENCOUNTER 2018-10-23 19:40 | Emergency (ER) | payer MEDICARE, MEDICAID ==
[~2018-10-23] VITALS: Ht 157.5 cm; Wt 72.6 kg
--- NOTE | 2018-10-23 21:28 | Emergency Room Report ---
History of Present Illness General Chief Complaint: Chest Pain Source: Patient, Medical Record, EMS Present Illness HPI Patient is a 43-year-old female presented after increased palpitations. Patient prior history of schizophrenia. She reports having chest pain resolved. Patient had prior history of anxiety. She had multiple positive previous visits for similar symptoms. Allergies: Coded Allergies: No Known Allergies (Unverified , 11/26/12) Patient History Past Medical History: see triage record Now: No Reviewed Nursing Documentation: PMH: Agreed; PSxH: Agreed Nursing Documentation-PMH Past Medical History: No History, Except For Hx Cardiac Problems: Yes Hx Hypertension: No Hx Pacemaker: No Hx Asthma: No Hx COPD: No Hx Diabetes: No Hx Cancer: No Hx Gastrointestinal Problems: Yes Hx Dialysis: No Hx Neurological Problems: No Hx Cerebrovascular Accident: No Hx Seizures: No Review of Systems All Other Systems: negative except mentioned in HPI Physical Exam Vital Signs Date Time Temp Pulse Resp B/P (MAP) Pulse Ox O2 Delivery O2 Flow Rate FiO2 10/23/18 19:35 98.4 82 16 122/96 100 Room Air Sp02 EP Interpretation: reviewed, normal General Appearance: normal inspection, well appearing, no apparent distress, alert, GCS 15 Head: atraumatic ENT: normal ENT inspection, hearing grossly normal, normal voice Neck: normal inspection, supple, no bony tend, limited range of motion Respiratory: normal inspection, lungs clear, normal breath sounds, no respiratory distress, no retraction, no wheezing Cardiovascular #1: regular rate, rhythm, no edema Gastrointestinal: normal inspection, normal bowel sounds, non tender, soft, no guarding, no hernia Genitourinary: no CVA tenderness Musculoskeletal: normal inspection, back normal, normal range of motion Neurologic: normal inspection, alert, oriented x3, responsive, loan interviewer III-XII nml as tested, speech normal Psychiatric: other - developmental delay Skin: normal inspection, normal color, no rash Medical Decision Making Diagnostic Impression: Primary Impression: Atypical chest pain ER Course Patient presented for chest pain. Differential diagnosis included but was not limited to acute coronary syndrome, pulmonary embolism, pneumonia, aortic dissection, shingles, pneumothorax, aortic dissection, esophageal rupture, pericarditis. Patient has a benign exam and does not appear to require any further imaging or laboratory testing at this time. EKG interpreted by me showed normal sinus rhythm without any acute ST or T wave changes. Patient was noted to have some history of developmental delay and does not appear to have any evidence of any acute issues at this time. Patient stated that she was pain-free immediately after arrival. She does not appear to require any medical interventions at this time. Patient was discharged home to follow-up with primary care physician. EKG Diagnostic Results Rate: normal Rhythm: NSR ST Segments: no acute changes Last Vital Signs Date Time Temp Pulse Resp B/P (MAP) Pulse Ox O2 Delivery O2 Flow Rate FiO2 10/23/18 19:35 98.4 82 16 122/96 100 Room Air Status: improved Disposition: HOME, SELF-CARE Condition: Stable Referrals: [facility] (PCP) Patient Instructions: Nonspecific Chest Pain Kike Rosales MD Oct 23, 2018 21:28
[2018-10-23 22:00] VITALS: BP 119/83
[2018-10-23 22:34] VITALS: BP 119/83
== END 2018-10-23 22:38 | disposition home or self-care (01) ==
LOC: EDBD 19:40 → EMR 20:10
DX: R07.89 Other chest pain (principal); F41.9 Anxiety disorder, unspecified; F20.9 Schizophrenia, unspecified
CPT/HCPCS: 99282

== ENCOUNTER 2018-11-01 19:13 | Emergency (ER) | payer MEDICARE, MEDICAID ==
[~2018-11-01] VITALS: Ht 157.5 cm; Wt 68.0 kg
[2018-11-01 19:13] VITALS: BP 154/96
--- NOTE | 2018-11-01 19:19 | NUR ---
ED Nurse Note: PATIENT WAS BIBA WITH COMPLAINTS OF CHEST PAIN 10/10. PATIENT WAS GIVEN ASPIRIN AND NITROGLYCERIN IN TOW. PATIENT PRESENTS CALM WITH NO S/S OF ACUTE DISTRESS. PATIENT HAS HISTORY OF DEVELOPMENTAL DELAY. PATIENT IS VERBAL AND AMBULATORY.
--- NOTE | 2018-11-01 20:00 | Emergency Room Report ---
History of Present Illness General Chief Complaint: Chest Pain Source: Patient, EMS Present Illness HPI Patient presents by paramedics for reports of chest pain Patient has had multiple presentations recently with similar complaints Upon arrival the patient appeared anxious and uncomfortable Patient does also have underlying psychiatric history It is unclear regarding the patient's compliance with medication patient is somewhat of a poor historian here Allergies: Coded Allergies: No Known Allergies (Unverified , 11/26/12) Patient History Limited by: medical condition Past Medical History: see triage record Pertinent Family History: none Last Menstrual Period: Pt is mental delay, can't remember Now: No Reviewed Nursing Documentation: PMH: Agreed; PSxH: Agreed Nursing Documentation-PMH Hx Cardiac Problems: Yes - chest pain Hx Hypertension: No Hx Pacemaker: No Hx Asthma: No Hx COPD: No Hx Diabetes: No Hx Cancer: No Hx Gastrointestinal Problems: Yes Hx Dialysis: No Hx Neurological Problems: No Hx Cerebrovascular Accident: No Hx Seizures: No Review of Systems All Other Systems: negative except mentioned in HPI Physical Exam Vital Signs Date Time Temp Pulse Resp B/P (MAP) Pulse Ox O2 Delivery O2 Flow Rate FiO2 11/01/18 19:13 98.6 88 14 154/96 98 Room Air Sp02 EP Interpretation: reviewed, normal General Appearance: mild distress Head: normocephalic, atraumatic Eyes: bilateral eye PERRL, bilateral eye EOMI ENT: normal pharynx Neck: supple Respiratory: lungs clear, no retraction, no accessory muscle use Cardiovascular #1: regular rate, rhythm Gastrointestinal: non tender Genitourinary: no CVA tenderness Musculoskeletal: normal inspection Neurologic: alert, oriented x3, responsive Psychiatric: anxious Skin: no rash, warm/dry Lymphatic: no adenopathy Medical Decision Making Diagnostic Impression: Primary Impression: Chest pain ER Course Patient is a fairly complex patient with multiple differential to consideration including but not limited to cardiac cardiopulmonary and vascular emergencies Given the patient's presentation and repeat evaluation in the emergency room I felt that there might be potentially some psychiatric component to the patient' s presentation as well patient's mom was contacted She has arrived to the emergency room Reports that she would like to take her daughter home Reports that the patient will be seeing her psychologist tomorrow Given this input in the appropriate disposition patient was dispositioned to the mother's care for continued reevaluation Labs Test 11/01/18 19:45 White Blood Count 7.8 K/UL (4.8-10.8) Red Blood Count 3.93 M/UL (4.20-5.40) Hemoglobin 12.6 G/DL (12.0-16.0) Hematocrit 38.8 % (37.0-47.0) Mean Corpuscular Volume 99 FL (80-99) Mean Corpuscular Hemoglobin 32.0 PG (27.0-31.0) Mean Corpuscular Hemoglobin Concent 32.4 G/DL (32.0-36.0) Red Cell Distribution Width 12.1 % (11.6-14.8) Platelet Count 209 K/UL (150-450) Mean Platelet Volume 8.0 FL (6.5-10.1) Neutrophils (%) (Auto) 55.6 % (45.0-75.0) Lymphocytes (%) (Auto) 30.6 % (20.0-45.0) Monocytes (%) (Auto) 8.2 % (1.0-10.0) Eosinophils (%) (Auto) 2.8 % (0.0-3.0) Basophils (%) (Auto) 2.8 % (0.0-2.0) Sodium Level 138 MMOL/L (136-145) Potassium Level 3.9 MMOL/L (3.5-5.1) Chloride Level 101 MMOL/L (98-107) Carbon Dioxide Level 30 MMOL/L (21-32) Anion Gap 7 mmol/L (5-15) Blood Urea Nitrogen 8 mg/dL (7-18) Creatinine 0.7 MG/DL (0.55-1.30) Estimat Glomerular Filtration Rate > 60 mL/min (>60) Glucose Level 112 MG/DL (74-106) Calcium Level 10.2 MG/DL (8.5-10.1) Total Bilirubin 0.2 MG/DL (0.2-1.0) Aspartate Amino Transf (AST/SGOT) 15 U/L (15-37) Alanine Aminotransferase (ALT/SGPT) 21 U/L (12-78) Alkaline Phosphatase 78 U/L (46-116) Total Protein 8.2 G/DL (6.4-8.2) Albumin 3.9 G/DL (3.4-5.0) Globulin 4.3 g/dL Albumin/Globulin Ratio 0.9 (1.0-2.7) Salicylates Level 1.7 ug/mL (2.8-20) Acetaminophen Level < 2 MCG/ML (10-30) Serum Alcohol < 3 mg/dL Rhythm Strip Diag. Results EP Interpretation: yes Rate: 56 Rhythm: NSR, no PVC's, no ectopy Last Vital Signs Date Time Temp Pulse Resp B/P (MAP) Pulse Ox O2 Delivery O2 Flow Rate FiO2 11/01/18 19:13 98.6 88 14 154/96 98 Room Air Status: improved Disposition: HOME, SELF-CARE Condition: Improved Additional Instructions: Patient is provided with the discharge instructions notified to follow up with primary doctor in the next 2-3 days otherwise return to the er with any worsening symptoms. Please note that this report is being documented using [employer] technology. This can lead to erroneous entry secondary to incorrect interpretation by the dictating instrument. Jamee Coe DO Nov 01, 2018 20:00
[2018-11-01 20:15] LABS: ANION GAP 7 mmol/L (5-15); BLOOD UREA NITROGEN 8 mg/dL (7-18); CALCIUM 10.2 MG/DL (8.5-10.1); CARBON DIOXIDE 30 MMOL/L (21-32); CHLORIDE 101 MMOL/L (98-107); CREATININE 0.7 MG/DL (0.55-1.30); POTASSIUM 3.9 MMOL/L (3.5-5.1); SODIUM 138 MMOL/L (136-145)
[2018-11-01 20:16] LABS: BASOPHILS % (AUTO) 2.8 % (0.0-2.0); EOSINOPHILS % (AUTO) 2.8 % (0.0-3.0); HEMATOCRIT 38.8 % (37.0-47.0); HEMOGLOBIN 12.6 G/DL (12.0-16.0); LYMPHOCYTES % (AUTO) 30.6 % (20.0-45.0); MEAN CORPUSCULAR VOLUME 99 FL (80-99); MONOCYTES % (AUTO) 8.2 % (1.0-10.0); NEUTROPHILS % (AUTO) 55.6 % (45.0-75.0); PLATELET COUNT 209 K/UL (150-450); RED BLOOD COUNT 3.93 M/UL (4.20-5.40); RED CELL DISTRIBUTION WIDTH 12.1 % (11.6-14.8); WHITE BLOOD COUNT 7.8 K/UL (4.8-10.8)
[2018-11-01 20:19] LABS: ALANINE AMINOTRANSFERASE 21 U/L (12-78); ALBUMIN 3.9 G/DL (3.4-5.0); ALBUMIN/GLOBULIN RATIO 0.9 (1.0-2.7); ALKALINE PHOSPHATASE 78 U/L (46-116); ASPARTATE AMINO TRANSFERASE 15 U/L (15-37); BILIRUBIN,TOTAL 0.2 MG/DL (0.2-1.0)
--- NOTE | 2018-11-01 20:32 | NUR ---
ED Nurse Note: PATIENT EXPRESSED VERBAL WILLINGNESS TO COOPERATE WITHOUT RESTRAINTS. PATIENT IS CURRENTLY RESTING IN A BED.
[2018-11-01 21:00] VITALS: BP 141/87
[2018-11-01 21:28] VITALS: BP 141/87
--- NOTE | 2018-11-01 21:56 | NUR ---
ED Nurse Note: patient discharged into care of mother.
== END 2018-11-01 21:56 | disposition home or self-care (01) ==
LOC: EDBD 19:13 → EMR 19:50
DX: R07.9 Chest pain, unspecified (principal)
CPT/HCPCS: 80053; 85025; 93005; 99283; G0480; 80329

== ENCOUNTER 2018-11-10 18:05 | Emergency (ER) | payer MEDICARE, MEDICAID ==
[~2018-11-10] VITALS: Ht 165.1 cm; Wt 68.0 kg
[2018-11-10 18:23] VITALS: BP 153/92
--- NOTE | 2018-11-10 18:29 | NUR ---
ED Nurse Note: biba from home c/o abd pain and chest annabel. pt is developmentaly delayed
--- NOTE | 2018-11-10 19:16 | NUR ---
HAND-OFF: Report given to Radha MCFARLAND.
--- NOTE | 2018-11-10 19:50 | Emergency Room Report ---
History of Present Illness General Chief Complaint: Abdominal Pain Source: Patient Present Illness HPI Patient has a history of anxiety and developmental delay. Patient has had multiple visits to our emergency department for chest discomfort abdominal discomfort with extensive work-up in the past. Patient was recently here just a few days ago. Patient presents today again complaining of chronic abdominal pain and chest pain. Patient appears to be nervous and is wondering around the hallways. Patient denies suicidal homicidal ideation denies any auditory visual hallucinations. Patient was brought here by the paramedics. Apparently patient lives with her mother. No other complaints were noted. Patient is actually eating a sandwich and drinking juice while I was evaluating her. Symptoms noted to be mild. No other modifying factors. No other associated signs and symptoms. No other complaints were noted. Allergies: Coded Allergies: No Known Allergies (Unverified , 11/26/12) Patient History Past Medical History: other - Chest pain chronic, developmental delay, chronic abdominal pain Past Surgical History: none Pertinent Family History: none Social History: Denies: smoking, alcohol use, drug use Now: No Reviewed Nursing Documentation: PMH: Agreed; PSxH: Agreed Nursing Documentation-PMH Past Medical History: No History, Except For Hx Cardiac Problems: Yes - chest pain Hx Hypertension: No Hx Pacemaker: No Hx Asthma: No Hx COPD: No Hx Diabetes: No Hx Cancer: No Hx Gastrointestinal Problems: Yes Hx Dialysis: No History Of Psychiatric Problem: Yes - Psych, Mentally challenged. Hx Neurological Problems: No Hx Cerebrovascular Accident: No Hx Seizures: No Review of Systems All Other Systems: negative except mentioned in HPI Physical Exam Vital Signs Date Time Temp Pulse Resp B/P (MAP) Pulse Ox O2 Delivery O2 Flow Rate FiO2 11/10/18 18:03 98.6 94 20 153/92 98 Room Air Sp02 EP Interpretation: reviewed, normal General Appearance: normal inspection, well appearing, no apparent distress, alert Head: atraumatic Eyes: bilateral eye normal inspection ENT: normal ENT inspection, hearing grossly normal, normal voice Neck: normal inspection, full range of motion, supple, no bony tend Respiratory: normal inspection, lungs clear, normal breath sounds, no respiratory distress, no retraction, no wheezing Cardiovascular #1: regular rate, rhythm, no edema Gastrointestinal: normal inspection, normal bowel sounds, non tender, soft, no guarding, no hernia Genitourinary: no CVA tenderness Musculoskeletal: normal inspection, back normal, normal range of motion Neurologic: normal inspection, alert, responsive, speech normal Psychiatric: anxious, other - Decreased insight Skin: normal inspection, normal color, no rash Medical Decision Making Diagnostic Impression: Primary Impression: Anxiety Additional Impression: Non-cardiac chest pain EKG Diagnostic Results Rate: normal Rhythm: NSR ST Segments: no acute changes Rhythm Strip Diag. Results EP Interpretation: yes Rate: 91 Rhythm: NSR, no PVC's, no ectopy Last Vital Signs Date Time Temp Pulse Resp B/P (MAP) Pulse Ox O2 Delivery O2 Flow Rate FiO2 11/10/18 18:23 98.6 20 153/92 98 Room Air 11/10/18 18:23 94 Status: improved Disposition: HOME, SELF-CARE Condition: Stable Referrals: [facility] (PCP) Patient Instructions: Panic Attacks Mack Franklin MD Nov 10, 2018 19:50
[2018-11-10 21:00] VITALS: BP 131/90
--- NOTE | 2018-11-10 21:00 | NUR ---
ED Nurse Note: Pt cleared by MD. TREVIZO to transport Pt home. Pt showing no signs of acute distress. VSS.
== END 2018-11-10 21:00 | disposition home or self-care (01) ==
LOC: EDBD 18:05 → EMR 19:33
DX: F41.9 Anxiety disorder, unspecified (principal); R07.89 Other chest pain; G89.29 Other chronic pain
CPT/HCPCS: 93005; 99283

== ENCOUNTER 2018-11-14 18:33 | Emergency (ER) | payer MEDICARE, MEDICAID ==
[~2018-11-14] VITALS: Ht 134.6 cm; Wt 54.4 kg
[2018-11-14 19:10] VITALS: BP 123/81
--- NOTE | 2018-11-14 19:10 | NUR ---
ED Nurse Note: Pt was BIBA from home, c/o back pain / for 2 days. Pt is awake, confused. Vital signs stable at this time, waiting for orders.
[2018-11-14] MEDS ORDERED: LORazepam Inj 2mg/ml 1ml IM ONE (19:45)
--- NOTE | 2018-11-14 20:00 | Emergency Room Report ---
History of Present Illness General Chief Complaint: General Complaint Present Illness HPI 43-year-old female presents to the emergency department complaining of 4 out of 10 in severity left-sided upper back pain 1 week. Patient reports that she currently has a patch on her back but it is not providing relief. History of present illness and ROS are extremely limited due to pt. having a cognitive deficit. denies CP, GARZA or SOB.Denies abdominal pain or Low back pain. denies fall. Allergies: Coded Allergies: No Known Allergies (Unverified , 11/26/12) Patient History Past Medical History: see triage record Past Surgical History: none Pertinent Family History: none Now: No Reviewed Nursing Documentation: PMH: Agreed; PSxH: Agreed Nursing Documentation-PMH Hx Cardiac Problems: Yes - chest pain Hx Hypertension: No Hx Pacemaker: No Hx Asthma: No Hx COPD: No Hx Diabetes: No Hx Cancer: No Hx Gastrointestinal Problems: Yes Hx Dialysis: No Hx Neurological Problems: No Hx Cerebrovascular Accident: No Hx Seizures: No Review of Systems All Other Systems: limited - pt. w. cognitive deficit Physical Exam Vital Signs Date Time Temp Pulse Resp B/P (MAP) Pulse Ox O2 Delivery O2 Flow Rate FiO2 11/14/18 18:34 97.9 76 16 120/80 98 Room Air Medical Decision Making PA Attestation Dr. Kay is my supervising Physician whom patient management has been discussed with. Diagnostic Impression: Primary Impression: Encounter for medical screening examination ER Course 43-year-old female presents to the emergency department complaining of 4 out of 10 in severity left-sided upper back pain 1 week. Patient reports that she currently has a patch on her back but it is not providing relief. History of present illness and ROS are extremely limited due to pt. having a cognitive deficit. denies CP, GARZA or SOB.Denies abdominal pain or Low back pain. denies fall. Ddx considered but are not limited to Fracture, dislocation, contusion, Sprain/ Strain/Spasm,psychosis, UTI, PNA just to name a few. Vital signs: are WNL, pt. is afebrile H&PE are most consistent with musculoskeletal injury will perform imaging to r/ o fractures/dislocations. ORDERS: - X-rays not warranted at this time. no bony ttp. ED INTERVENTIONS: - Lidoderm patch applied TP -- Pt. mother was called to come pick her up. DISCHARGE: At this time pt. is stable for d/c to home. Will provide printed patient care instructions, and any necessary prescriptions. Care plan and follow up instructions have been discussed with the patient prior to discharge. Last Vital Signs Date Time Temp Pulse Resp B/P (MAP) Pulse Ox O2 Delivery O2 Flow Rate FiO2 11/14/18 18:34 97.9 76 16 120/80 98 Room Air Disposition: HOME, SELF-CARE - with mother Condition: Stable Scripts Lidocaine (Lidoderm) 1 Each Adh..patch 1 PATCH TOPIC DAILY, #30 PATCH 0 Refills Patch(es) may remain in place for up to 12 hours in any 24-hour period. Prov: Michelle Shelton 11/14/18 Referrals: [facility] (PCP) [facility] Patient Instructions: Back Pain, Adult, [id number] Additional Instructions: Take medications as directed. Follow up with a Primary Care Provider in 3-5 days, even if your symptoms have resolved. --Please review list of primary care clinics, if you do not already have a primary care provider Return sooner to ED if new symptoms occur, or current symptoms become worse. - Please note that this Emergency Department Report was dictated using [employer] software, occasionally this can lead to erroneous entry secondary to interpretation by the dictation equipment. Michelle Shelton Nov 14, 2018 20:00
[2018-11-14] MEDS ORDERED: LIDODERM700 M1 TOPIC (20:01)
[2018-11-14 20:12] VITALS: BP 123/81
--- NOTE | 2018-11-14 20:12 | NUR ---
ER DISCHARGE NOTE: Patient is cleared to be discharged per Michelle Shelton/ SABRINA. Pain meds given as ordered. Pt is aox4 on room air with stable vital signs. Pt's Mom was given dc and prescription instructions and was able to verbalize understanding. Pt's ID band removed. pt is d/c from ED with steady gait and pt took all belongings.
== END 2018-11-14 20:12 | disposition home or self-care (01) ==
LOC: EDUNIT# 18:33 → EDBD 18:33 → EMR 19:03
DX: M54.6 Pain in thoracic spine (principal)
CPT/HCPCS: 96372; 99283

== ENCOUNTER 2018-11-20 20:43 | Emergency (ER) | payer MEDICARE, MEDICAID ==
[~2018-11-20] VITALS: Ht 162.6 cm; Wt 65.8 kg
[~2018-11-20 20:43] MED LIST changes: +LIDODERM700 M1 TOPIC
[2018-11-20 20:49] VITALS: BP 103/66
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
--- NOTE | 2018-11-20 21:20 | NUR ---
ED Nurse Note: Sitter at bedside. Attempts to contact patient's mother unsuccessful, on both numbers from face sheet.
[2018-11-20] MEDS ORDERED: CLONAZEPAM1 M2 PO (21:21)
[2018-11-20] MEDS ORDERED: CLONAZEPAM0.5 MG PO (21:21)
[2018-11-20] MEDS ORDERED: RISPERIDONE1 MG ORAL (21:21)
[2018-11-20] MEDS ORDERED: SEROQUEL300 MG ORAL (21:21)
--- NOTE | 2018-11-20 21:50 | NUR ---
ED Nurse Note: pt given sandwich, water and juice w/ socks. sitter at the bedside.
[2018-11-20 21:54] LABS: APPEARANCE,URINE CLEAR; BILIRUBIN, URINE NEGATIVE (NEGATIVE); COLOR,URINE PALE YELLOW; GLUCOSE, URINE (UA) NEGATIVE (NEGATIVE); KETONES,URINE NEGATIVE (NEGATIVE); LEUKOCYTE ESTERASE ,URINE NEGATIVE (NEGATIVE); NITRITE,URINE NEGATIVE (NEGATIVE); PH,URINE 6 (4.5-8.0); PROTEIN,URINE NEGATIVE (NEGATIVE); UROBILINOGEN,URINE NORMAL MG/DL (0.0-1.0)
[2018-11-20 21:58] LABS: BASOPHILS % (AUTO) 1.4 % (0.0-2.0); EOSINOPHILS % (AUTO) 1.3 % (0.0-3.0); HEMATOCRIT 38.1 % (37.0-47.0); HEMOGLOBIN 12.6 G/DL (12.0-16.0); LYMPHOCYTES % (AUTO) 15.3 % (20.0-45.0); MEAN CORPUSCULAR VOLUME 98 FL (80-99); PLATELET COUNT 231 K/UL (150-450); RED CELL DISTRIBUTION WIDTH 12.3 % (11.6-14.8); WHITE BLOOD COUNT 11.3 K/UL (4.8-10.8)
[2018-11-20 22:28] LABS: ANION GAP 7 mmol/L (5-15); BLOOD UREA NITROGEN 14 mg/dL (7-18); CARBON DIOXIDE 28 MMOL/L (21-32); CHLORIDE 103 MMOL/L (98-107); CREATININE 0.8 MG/DL (0.55-1.30); POTASSIUM 3.9 MMOL/L (3.5-5.1); SODIUM 138 MMOL/L (136-145)
[2018-11-20 22:30] LABS: ALANINE AMINOTRANSFERASE 19 U/L (12-78); ALBUMIN 3.8 G/DL (3.4-5.0); ALBUMIN/GLOBULIN RATIO 0.9 (1.0-2.7); ALKALINE PHOSPHATASE 70 U/L (46-116); ASPARTATE AMINO TRANSFERASE 16 U/L (15-37); BILIRUBIN,TOTAL 0.3 MG/DL (0.2-1.0)
[2018-11-21] VITALS (7 sets, daily range): BP systolic 108–126; BP diastolic 66–83
--- NOTE | 2018-11-21 01:21 | NUR ---
ED Nurse Note: pt sleeping at this time, sitter at the bedside, vss, resp even and unlabored on RA, no sx distress noted, will cont monitor.
--- NOTE | 2018-11-21 01:27 | NUR ---
ED Nurse Note: Physician's name on pt's pill bottles is Mor Olivas MD; research shows he is a psychiatrist - [phone].
--- NOTE | 2018-11-21 02:00 | NUR ---
Radha croft in ED - 11/21/18 at 2324 by [facility] ED Nurse Note: PATIENT RESTING COMFORTABLY IN BED WITH NAD.
--- NOTE | 2018-11-21 02:00 | NUR ---
ED Nurse Note: First contact with pt, sitter is being relieved from break, pt remains in bed, nad noted, resting quietly with eyes open, offered sandwich and water but pt refused at this time.
--- NOTE | 2018-11-21 02:30 | NUR ---
Note lang in ED - 11/21/18 at 2324 by [facility] ED Nurse Note: PATIENT SLEEPING IN BED WITH NAD. WHEELER RETURNED TO BEDSIDE.
--- NOTE | 2018-11-21 02:30 | NUR ---
ED Nurse Note: pt went back to sleep, sitter at the bedside for cont care.
--- NOTE | 2018-11-21 05:29 | NUR ---
ED Nurse Note: pt sleeping at this time, vss, sitter at the bedside, no sx distress, breakfast ordered per protocol.
--- NOTE | 2018-11-21 07:10 | NUR ---
ED Nurse Patient is having breakfast in stable condition.
--- NOTE | 2018-11-21 07:17 | NUR ---
HAND-OFF: Report given to RN Jovan and endorsed care. pt vss, resp even and unlabored on RA. no sx distress. pt ate breakfast. sitter at the bedside.
--- NOTE | 2018-11-21 07:20 | NUR ---
ED Nurse Note: Patient's belongings in locker #3 per previous shift nurse.
--- NOTE | 2018-11-21 07:30 | NUR ---
ED Nurse Note: Patient is wandering as stating "I want to go home." Pt was redirected to the room by nurse and sitter and explained about the plan.
--- NOTE | 2018-11-21 07:51 | NUR ---
ED Nurse Note: Patient calm and staying in bed.
--- NOTE | 2018-11-21 07:56 | NUR ---
ED Nurse Note: Spoke to Mor Olivas MD. Per , he is not the primary psychiatrist of the pt. Was told to contact [facility]
--- NOTE | 2018-11-21 08:02 | NUR ---
ED Nurse Note: Spoke to Iraida from [facility] [place] [phone] and was told that the patient does not have primary doctor
--- NOTE | 2018-11-21 10:30 | NUR ---
ED Nurse Note: [place] and juice were provided per patient's request.
--- NOTE | 2018-11-21 12:10 | NUR ---
ED Nurse Note: PER DR. MENDOZA, DR. PALACIOS WILL SEE THE PATIENT FOR ASSESSMENT AND EVALUATION
--- NOTE | 2018-11-21 15:56 | NUR ---
ED Nurse Note: pt was seen by psychiatrist.
--- NOTE | 2018-11-21 16:10 | NUR ---
ED Nurse Note: DR. PALACIOS LIFTED THE HOLD
--- NOTE | 2018-11-21 16:30 | NUR ---
ED Nurse Note: Patient is cleared to go by psychiatrist.
[2018-11-21] MEDS ORDERED: Depakote 500mg tab ORAL ONE (16:45)
[2018-11-21] MEDS ORDERED: KLONOPIN1 MG ORAL (16:48)
--- NOTE | 2018-11-21 17:59 | NUR ---
ER DISCHARGE NOTE: Patient is cleared to be discharged per ERMD and psychiatrist, pt is aox3-4, on room air, with stable vital signs. pt was given dc and prescription instructions, taxi was called, pt was able to verbalize understanding, pt id band removed. pt is able to ambulate with steady gait. pt took all belongings.
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
== END 2018-11-21 18:00 | disposition home or self-care (01) ==
LOC: EDBD 20:43 → EMR 21:24
DX: F79 Unspecified intellectual disabilities (principal); F41.9 Anxiety disorder, unspecified
CPT/HCPCS: 36415; 80053; 80307; 81003; 81025; 85025; 99285; G0480; 80329

== ENCOUNTER 2018-12-30 17:58 | Emergency (ER) | payer MEDICARE, MEDICAID ==
[~2018-12-30] VITALS: Ht 162.6 cm; Wt 59.0 kg
[~2018-12-30 17:58] MED LIST changes: +CLONAZEPAM0.5 MG PO; +CLONAZEPAM1 M2 PO; +KLONOPIN1 MG ORAL; +RISPERIDONE1 MG ORAL; +SEROQUEL300 MG ORAL
--- NOTE | 2018-12-30 18:02 | NUR ---
ED Nurse Note: Pt BIBA from home due to "anxiety attack" x 1 day. Also c/o back pain 0/10 joy. pt "took 1 pill for anxiety today". Vital signs stable joy. Will cont to monitor.
[2018-12-30 18:07] VITALS: BP 132/88
--- NOTE | 2018-12-30 19:00 | Diagnostic Imaging Report ---
EXAM: XR Chest, 1 View CLINICAL HISTORY: PAIN TECHNIQUE: Frontal view of the chest. COMPARISON: 09/23/18 FINDINGS: Lungs: Low lung volumes with bronchovascular crowding. Ill-defined mild hazy attenuation in the left base is of uncertain significance, and could be secondary to low lung volumes. In the proper clinical context, this could represent an early infectious consolidation. Pleural space: No pleural effusion or pneumothorax. Heart: Unremarkable. No cardiomegaly. Mediastinum: Unremarkable. Bones/joints: Unremarkable. IMPRESSION: 1. Low lung volumes with bronchovascular crowding. 2. Ill-defined mild hazy attenuation in the left base is of uncertain significance, and could be secondary to low lung volumes. In the proper clinical context, this could represent an early infectious consolidation. 3. No pleural effusion or pneumothorax. 4. Recommend repeat study with PA and lateral chest radiographs to further characterize the possible right lung finding.
--- NOTE | 2018-12-30 19:06 | NUR ---
ED Nurse Note: Received report from Jacinta/ RN. Pt is A/O X 4. VSS, will continue to monitor.
[2018-12-30 19:09] LABS: APPEARANCE,URINE CLEAR; BILIRUBIN, URINE NEGATIVE (NEGATIVE); COLOR,URINE PALE YELLOW; GLUCOSE, URINE (UA) NEGATIVE (NEGATIVE); KETONES,URINE NEGATIVE (NEGATIVE); LEUKOCYTE ESTERASE ,URINE 3+ (NEGATIVE); NITRITE,URINE NEGATIVE (NEGATIVE); PH,URINE 6.5 (4.5-8.0); PROTEIN,URINE NEGATIVE (NEGATIVE); UROBILINOGEN,URINE NORMAL MG/DL (0.0-1.0)
[2018-12-30 19:17] LABS: ANION GAP 11 mmol/L (5-15); BLOOD UREA NITROGEN 9 mg/dL (7-18); CALCIUM 9.4 MG/DL (8.5-10.1); CARBON DIOXIDE 24 MMOL/L (21-32); CHLORIDE 103 MMOL/L (98-107); CREATININE 0.9 MG/DL (0.55-1.30); POTASSIUM 3.8 MMOL/L (3.5-5.1); SODIUM 138 MMOL/L (136-145)
[2018-12-30 19:20] LABS: BASOPHILS % (AUTO) 1.2 % (0.0-2.0); EOSINOPHILS % (AUTO) 0.3 % (0.0-3.0); HEMATOCRIT 35.7 % (37.0-47.0); HEMOGLOBIN 12.2 G/DL (12.0-16.0); LYMPHOCYTES % (AUTO) 12.4 % (20.0-45.0); MEAN CORPUSCULAR VOLUME 95 FL (80-99); MONOCYTES % (AUTO) 4.4 % (1.0-10.0); NEUTROPHILS % (AUTO) 81.6 % (45.0-75.0); PLATELET COUNT 235 K/UL (150-450); RED BLOOD COUNT 3.75 M/UL (4.20-5.40); RED CELL DISTRIBUTION WIDTH 11.8 % (11.6-14.8)
[2018-12-30 19:21] LABS: ALANINE AMINOTRANSFERASE 17 U/L (12-78); ALBUMIN 4.2 G/DL (3.4-5.0); ALBUMIN/GLOBULIN RATIO 1.1 (1.0-2.7); ALKALINE PHOSPHATASE 72 U/L (46-116); ASPARTATE AMINO TRANSFERASE 14 U/L (15-37); BILIRUBIN,TOTAL 0.2 MG/DL (0.2-1.0)
--- NOTE | 2018-12-30 19:43 | Emergency Room Report ---
History of Present Illness General Chief Complaint: General Complaint Source: Patient, Medical Record (Marcela Dumont) Present Illness HPI 43-year-old female with history of mental disability and anxiety brought in by the paramedics complaining of palpitation and severe anxiety. Patient reports that her chest is hurting however denies pain radiation rating the pain 7 out of 10. Patient is urinating herself and is shaky. Patient has been told in PAR multiple times in the past few months for the same reason. Usually she is accompanied by her mother however she is not with her today. Denies dizziness, blurry vision, abdominal pain, nausea vomiting. Patient is currently on clonazepam twice a day and took her clonazepam at home. Denies drug use, alcohol intake, and smoking. Denies suicidal ideation homicidal ideation. (Marcela Dumont) Allergies: Coded Allergies: No Known Allergies (Unverified , 11/26/12) Patient History Past Medical History: see triage record Past Surgical History: unable to obtain Pertinent Family History: none Last Menstrual Period: Unknown Now: No - Unknown Reviewed Nursing Documentation: PMH: Agreed; PSxH: Agreed (Marcela Dumont) Nursing Documentation-PMH Hx Cardiac Problems: Yes - chest pain Hx Hypertension: No Hx Pacemaker: No Hx Asthma: No Hx COPD: No Hx Diabetes: No Hx Cancer: No Hx Gastrointestinal Problems: Yes Hx Dialysis: No History Of Psychiatric Problem: Yes - Anxiety Hx Neurological Problems: No Hx Cerebrovascular Accident: No Hx Seizures: No (Marcela Dumont) Review of Systems All Other Systems: negative except mentioned in HPI (Marcela Dumont) Physical Exam Vital Signs Date Time Temp Pulse Resp B/P (MAP) Pulse Ox O2 Delivery O2 Flow Rate FiO2 12/30/18 17:41 97.7 90 18 134/96 (109) 100 Room Air Sp02 EP Interpretation: reviewed, normal General Appearance: alert, non-toxic, mild distress Eyes: bilateral eye normal inspection, bilateral eye PERRL ENT: normal ENT inspection, hearing grossly normal, normal pharynx Neck: normal inspection, supple Respiratory: normal inspection, no rhonchi, no wheezing Cardiovascular #1: normal inspection, regular rate, rhythm, no murmur Gastrointestinal: normal inspection, soft Rectal: deferred Genitourinary: no CVA tenderness Musculoskeletal: normal inspection, back normal, digits/nails normal Neurologic: normal inspection, alert, oriented x3, responsive Psychiatric: memory normal, anxious Suicide Risk Assessment: Suicidal Ideation: No Had intent to initiate attempt: No Pt's plan for suicide attempt: No Has means to complete attempt: No Skin: normal inspection, normal color, no rash Lymphatic: normal inspection, no adenopathy (Marcela Dumont) Medical Decision Making PA Attestation All diagnoses and treatment plans were reviewed and discussed with my supervising physician Dr. Kay (Marcela Dumont) Diagnostic Impression: Primary Impression: UTI (urinary tract infection) Additional Impression: Anxiety ER Course 43-year-old female with history of mental disability and anxiety brought in by the paramedics complaining of palpitation and severe anxiety. Patient reports that her chest is hurting however denies pain radiation rating the pain 7 out of 10. Patient is urinating herself and is shaky. Patient has been told in PAR multiple times in the past few months for the same reason. Usually she is accompanied by her mother however she is not with her today. Denies dizziness, blurry vision, abdominal pain, nausea vomiting. Patient is currently on clonazepam twice a day and took her clonazepam at home. Denies drug use, alcohol intake, and smoking. Denies suicidal ideation homicidal ideation. Ddx considered but are not limited to: generalized anxiety disorder, panic attack, depression with psycotic featurs, bipolar disorder, drug overdose , [place], urinary incontinence, UTI Vital signs: are WNL, pt. is afebrile H&PE are most consistent with: Anxiety, UTI ORDERS: CMP, UA, urine paretic, chest x-ray, EKG, Macrobid ED INTERVENTIONS: None required at this time. DISCHARGE: At this time pt. is stable for d/c to home. Will provide printed patient care instructions, and any necessary prescriptions. Care plan and follow up instructions have been discussed with the patient prior to discharge. Follow-up with a primary care provider take medication as directed take your anxiety medication at home patient was stable at time of just discharge and verbalized that she feels a lot better and calm and further denied suicidal ideation and homicidal ideation pos WBC UA and leuk (Marcela Dumont) EKG Diagnostic Results Rate: normal Rhythm: NSR ST Segments: no acute changes (Marcela Dumont) Chest X-Ray Diagnostic Results Chest X-Ray Diagnostic Results : Chest X-Ray Ordered: Yes # of Views/Limited/Complete: 1 View Indication: Chest Pain EP Interpretation: Yes PA Xray: Interpretation reviewed, by supervising MD, and agrees with findings. Interpretation: no consolidation Impression: No acute disease Electronically Signed by: marcela BENNETT Scribe Text IMPRESSION: 1. Low lung volumes with bronchovascular crowding. 2. Ill-defined mild hazy attenuation in the left base is of uncertain significance, and could be secondary to low lung volumes. In the proper clinical context, this could represent an early infectious consolidation. 3. No pleural effusion or pneumothorax. 4. Recommend repeat study with PA and lateral chest radiographs to further characterize the possible right lung finding. (Marcela Dumont) Chest X-Ray Diagnostic Results : Electronically Signed by: Ari Ferrer documentation of Xray reviewed by me and is accurate, Morgan Kay MD (Morgan Kay MD) Last Vital Signs Date Time Temp Pulse Resp B/P (MAP) Pulse Ox O2 Delivery O2 Flow Rate FiO2 12/30/18 18:07 97.7 79 20 132/88 100 Room Air (Marcela Dumont) Disposition: HOME, SELF-CARE Condition: Stable Scripts Nitrofurantoin Monohyd/M-Cryst* (MACROBID 100 MG*) 100 Mg Capsule 100 MG ORAL EVERY 12 HOURS for 7 Days, #14 CAP Prov: Marcela Dumont 12/30/18 Referrals: [facility] (PCP) Patient Instructions: Generalized Anxiety Disorder, Urinary Tract Infection, [id number] Additional Instructions: Take your anxiety medication at home follow-up with a primary care provider take your antibiotics as directed Marcela Dumont Dec 30, 2018 19:43 Morgan Kay MD Dec 31, 2018 04:25
[2018-12-30] MEDS ORDERED: NITROFURANTOIN100 M2 ORAL (19:44)
[2018-12-30 19:49] VITALS: BP 131/83
--- NOTE | 2018-12-30 19:49 | NUR ---
ER DISCHARGE NOTE: Patient is cleared to be discharged per Marcela Dumont/SABRINA. Pt is aox4 on room air with stable vital signs. Pt was given dc and prescription instructions. Pt was able to verbalize understanding. Pt's id band removed. Pt is able to ambulate with steady gait and took all belongings.
== END 2018-12-30 19:49 | disposition home or self-care (01) ==
LOC: EDBD 17:58 → EMR 18:29
DX: F41.9 Anxiety disorder, unspecified (principal); N39.0 Urinary tract infection, site not specified; R00.2 Palpitations
CPT/HCPCS: 36415; 71045; 80053; 81001; 81025; 84484; 85025; 87086; 93005; 99284

== ENCOUNTER 2019-01-02 19:19 | Emergency (ER) | payer MEDICARE, MEDICAID ==
[~2019-01-02] VITALS: Ht 160 cm; Wt 63.5 kg
[2019-01-02 19:23] VITALS: BP 132/78
--- NOTE | 2019-01-02 19:46 | Emergency Room Report ---
History of Present Illness General Chief Complaint: General Complaint Present Illness HPI 43-year-old female with history of anxiety and mental retardation brought in by the paramedics after her mom called the paramedics due to patient having anxiety today. She has had multiple visits to [facility] with the same reason and she was recently here for the same reason and complete work-up was done patient wants to go home complains of minor chest pain however denies all other symptoms denies palpitation, shortness of breath, abdominal pain nausea vomiting dizziness patient has taken her clonazepam at home. And homicidal ideations Allergies: Coded Allergies: No Known Allergies (Unverified , 11/26/12) Patient History Past Medical History: see triage record Past Surgical History: unable to obtain Pertinent Family History: none Last Menstrual Period: Pt can't remember Now: No Immunizations: UTD Reviewed Nursing Documentation: PMH: Agreed; PSxH: Agreed Nursing Documentation-PMH Hx Cardiac Problems: Yes - chest pain Hx Hypertension: No Hx Pacemaker: No Hx Asthma: No Hx COPD: No Hx Diabetes: No Hx Cancer: No Hx Gastrointestinal Problems: Yes Hx Dialysis: No History Of Psychiatric Problem: Yes - anxiety Hx Neurological Problems: No Hx Cerebrovascular Accident: No Hx Seizures: No Review of Systems All Other Systems: negative except mentioned in HPI Physical Exam Vital Signs Date Time Temp Pulse Resp B/P (MAP) Pulse Ox O2 Delivery O2 Flow Rate FiO2 01/02/19 19:16 97.3 60 16 132/78 (96) 100 Room Air Sp02 EP Interpretation: reviewed, normal General Appearance: normal inspection, well appearing, no apparent distress, alert, GCS 15, obese Head: normocephalic Eyes: bilateral eye normal inspection, bilateral eye PERRL ENT: normal ENT inspection, hearing grossly normal Neck: normal inspection Respiratory: normal inspection, chest non-tender, no respiratory distress, no retraction, no wheezing Cardiovascular #1: normal inspection, regular rate, rhythm, no edema, normal capillary refill Gastrointestinal: normal inspection, soft Rectal: deferred Genitourinary: no CVA tenderness Musculoskeletal: normal inspection, back normal, digits/nails normal Neurologic: normal inspection, alert, oriented x3, responsive, linen grader III-XII nml as tested Psychiatric: normal inspection, judgement/insight normal, memory normal Skin: normal inspection, normal color, no rash, warm/dry Lymphatic: normal inspection, no adenopathy Medical Decision Making PA Attestation All my diagnosis and treatment plans were reviewed ad discussed with my supervising physician Dr. Franklin Diagnostic Impression: Primary Impression: Anxiety ER Course 43-year-old female with history of anxiety and mental retardation brought in by the paramedics after her mom called the paramedics due to patient having anxiety today. She has had multiple visits to [facility] with the same reason and she was recently here for the same reason and complete work-up was done patient wants to go home complains of minor chest pain however denies all other symptoms denies palpitation, shortness of breath, abdominal pain nausea vomiting dizziness patient has taken her clonazepam at home. And homicidal ideations Ddx considered but are not limited to: generalized anxiety disorder, panic attack, depression with psycotic featurs, bipolar disorder, drug overdose Vital signs: are WNL, pt. is afebrile H&PE are most consistent with: Anxiety ORDERS: EKG ED INTERVENTIONS: None required at this time. DISCHARGE: At this time pt. is stable for d/c to home. Will provide printed patient care instructions, and any necessary prescriptions. Care plan and follow up instructions have been discussed with the patient prior to discharge. Patient stable at time of discharge advise mom over the phone to have home health and supports for patient as patient is incapable of taking care of herself. EKG Diagnostic Results Rate: normal Rhythm: NSR ST Segments: no acute changes Last Vital Signs Date Time Temp Pulse Resp B/P (MAP) Pulse Ox O2 Delivery O2 Flow Rate FiO2 01/02/19 19:23 97.3 62 16 132/78 100 Room Air Disposition: HOME, SELF-CARE Condition: Stable Patient Instructions: Generalized Anxiety Disorder Marcela Dumont Jan 02, 2019 19:46
[2019-01-02 19:58] VITALS: BP 132/78
== END 2019-01-02 20:00 | disposition home or self-care (01) ==
LOC: EDBD 19:19 → EMR 19:53
DX: F41.9 Anxiety disorder, unspecified (principal); F79 Unspecified intellectual disabilities; R07.9 Chest pain, unspecified; E66.9 Obesity, unspecified; Z68.24 Body mass index [BMI] 24.0-24.9, adult
CPT/HCPCS: 99282

== ENCOUNTER 2019-01-07 16:47 | Emergency (ER) | payer MEDICARE, MEDICAID ==
[~2019-01-07] VITALS: Ht 157.5 cm; Wt 68.0 kg
[2019-01-07 16:54] VITALS: BP 137/89
--- NOTE | 2019-01-07 16:56 | Emergency Room Report ---
History of Present Illness General Chief Complaint: Palpitations Present Illness HPI 43-year-old female with history of anxiety currently under treatment of psychiatrist and taking clonazepam here complaining of palpitations brought in by paramedics. Patient has been here multiple times in the past week with the same complaint. Patient is in no apparent distress upon arrival. Denies chest pain, pain radiation, shortness of breath, headache and dizziness. Denies abdominal pain, nausea vomiting, and all other associated symptoms. Patient has underlying mental disability. Allergies: Coded Allergies: No Known Allergies (Unverified , 11/26/12) Patient History Past Medical History: see triage record Past Surgical History: unable to obtain Pertinent Family History: none Now: No Immunizations: UTD Reviewed Nursing Documentation: PMH: Agreed; PSxH: Agreed Nursing Documentation-PMH Hx Cardiac Problems: Yes - chest pain Hx Hypertension: No Hx Pacemaker: No Hx Asthma: No Hx COPD: No Hx Diabetes: No Hx Cancer: No Hx Gastrointestinal Problems: Yes Hx Dialysis: No Hx Neurological Problems: No Hx Cerebrovascular Accident: No Hx Seizures: No Review of Systems All Other Systems: negative except mentioned in HPI Physical Exam Vital Signs Date Time Temp Pulse Resp B/P (MAP) Pulse Ox O2 Delivery O2 Flow Rate FiO2 01/07/19 16:45 99.0 100 16 137/89 (105) 99 Room Air Sp02 EP Interpretation: reviewed, normal General Appearance: normal inspection, well appearing, no apparent distress, alert, GCS 15, non-toxic Head: normocephalic, atraumatic Eyes: bilateral eye normal inspection, bilateral eye PERRL ENT: normal ENT inspection, hearing grossly normal, normal pharynx Neck: normal inspection, full range of motion, supple, thyroid normal Respiratory: normal inspection, chest non-tender, lungs clear, normal breath sounds, no rhonchi Cardiovascular #1: normal inspection, normal peripheral pulses, regular rate, rhythm, no edema, no gallop, no murmur, normal capillary refill Gastrointestinal: normal inspection, non tender, soft Rectal: deferred Genitourinary: no CVA tenderness Musculoskeletal: normal inspection, back normal, digits/nails normal, gait/ station normal Neurologic: normal inspection, alert, oriented x3, responsive, securities lending trader III-XII nml as tested Psychiatric: judgement/insight normal, memory normal, anxious Skin: normal inspection, normal color, no rash, warm/dry Lymphatic: normal inspection, no adenopathy Medical Decision Making PA Attestation All my diagnosis and treatment plans were reviewed ad discussed with my supervising physician Dr. Rosales Diagnostic Impression: Primary Impression: Palpitations Additional Impression: Anxiety, generalized ER Course 43-year-old female with history of anxiety currently under treatment of psychiatrist and taking clonazepam here complaining of palpitations brought in by paramedics. Patient has been here multiple times in the past week with the same complaint. Patient is in no apparent distress upon arrival. Denies chest pain, pain radiation, shortness of breath, headache and dizziness. Denies abdominal pain, nausea vomiting, and all other associated symptoms. Patient has underlying mental disability. Ddx considered but are not limited to: generalized anxiety disorder, panic attack, depression with psycotic featurs, bipolar disorder, drug overdose Vital signs: are WNL, pt. is afebrile H&PE are most consistent with: Anxiety ORDERS: EKG ED INTERVENTIONS: None required at this time. DISCHARGE: At this time pt. is stable for d/c to home. Will provide printed patient care instructions, and any necessary prescriptions. Care plan and follow up instructions have been discussed with the patient prior to discharge. EKG Diagnostic Results Rate: normal Rhythm: NSR ST Segments: no acute changes Last Vital Signs Date Time Temp Pulse Resp B/P (MAP) Pulse Ox O2 Delivery O2 Flow Rate FiO2 01/07/19 16:45 99.0 100 16 137/89 (105) 99 Room Air Disposition: HOME, SELF-CARE Condition: Stable Patient Instructions: Generalized Anxiety Disorder Marcela Dumont Jan 07, 2019 16:56
--- NOTE | 2019-01-07 17:00 | NUR ---
ED Nurse Note: Patient brought in to ER by ambulance from home due to pt reported palpitation. pt aao x3-4 and ambulatory. skin clean and intact. heart rate 98/min noted. calm and cooperative.
--- NOTE | 2019-01-07 19:06 | NUR ---
HAND-OFF: Report given to BRUNA Mosley. waiting for taxi to come and pick pt up. no orders to carry at this moment.
--- NOTE | 2019-01-07 19:42 | NUR ---
ER DISCHARGE NOTE: Patient is cleared to be discharged per ERMD, pt is aox4, on room air, with stable vital signs. pt was given dc and prescription instructions, pt was able to verbalize understanding, pt id band removed. pt is able to ambulate with steady gait. pt took all belongings. Pt took taxi provided
== END 2019-01-07 19:30 | disposition home or self-care (01) ==
LOC: EDBD 16:47 → EMR 17:08
DX: R00.2 Palpitations (principal); F41.1 Generalized anxiety disorder
CPT/HCPCS: 99283

== ENCOUNTER 2019-01-09 18:02 | Emergency (ER) | payer MEDICARE, MEDICAID ==
[~2019-01-09] VITALS: Ht 160 cm; Wt 68.0 kg
[2019-01-09 18:05] VITALS: BP 132/90
--- NOTE | 2019-01-09 18:05 | NUR ---
ED Nurse Note: Patient biba from home c/o epigastric pain that has been an ongoing issue for about 4 hours now, patient denies any nausea vomiting diarrhea, describes her pain as a constant pressure like pain. EKg showed Normal sinus rhytm, IV started on right ac 20 gauge, labs sent down, will continue to monitor
[2019-01-09] MEDS ORDERED: Dicyclomine HCl 10mg/5ml oral soln ORAL ONE (18:30)
[2019-01-09] MEDS ORDERED: Mylanta II UD 30ml ORAL ONE (18:30)
[2019-01-09] MEDS ORDERED: Lidocaine 2% Visc 15ml soln ORAL ONE (18:30)
[2019-01-09 19:03] LABS: BASOPHILS % (AUTO) 1.9 % (0.0-2.0); EOSINOPHILS % (AUTO) 2.2 % (0.0-3.0); HEMATOCRIT 40.3 % (37.0-47.0); HEMOGLOBIN 13.2 G/DL (12.0-16.0); LYMPHOCYTES % (AUTO) 20.3 % (20.0-45.0); MEAN CORPUSCULAR VOLUME 101 FL (80-99); MONOCYTES % (AUTO) 8.9 % (1.0-10.0); NEUTROPHILS % (AUTO) 66.6 % (45.0-75.0); PLATELET COUNT 247 K/UL (150-450); RED BLOOD COUNT 3.99 M/UL (4.20-5.40); RED CELL DISTRIBUTION WIDTH 11.4 % (11.6-14.8)
--- NOTE | 2019-01-09 19:04 | NUR ---
ED Nurse Note: unable to get urine, patient dropped sample in the toilet. Dr. Grimes notified and aware
[2019-01-09 19:08] LABS: ANION GAP 8 mmol/L (5-15); BLOOD UREA NITROGEN 13 mg/dL (7-18); CALCIUM 9.4 MG/DL (8.5-10.1); CARBON DIOXIDE 30 MMOL/L (21-32); CHLORIDE 102 MMOL/L (98-107); CREATININE 0.9 MG/DL (0.55-1.30); SODIUM 140 MMOL/L (136-145)
[2019-01-09 19:12] LABS: ALANINE AMINOTRANSFERASE 16 U/L (12-78); ALBUMIN 4.2 G/DL (3.4-5.0); ALBUMIN/GLOBULIN RATIO 1.1 (1.0-2.7); ALKALINE PHOSPHATASE 75 U/L (46-116); ASPARTATE AMINO TRANSFERASE 16 U/L (15-37); BILIRUBIN,TOTAL 0.1 MG/DL (0.2-1.0)
--- NOTE | 2019-01-09 19:16 | NUR ---
HAND-OFF: Report given to BRUNA Mosley.
--- NOTE | 2019-01-09 20:07 | NUR ---
CALLED [employer], SPOKE WITH CHRISTA, STATES CAB'S ETA IS 2030
[2019-01-09] MEDS ORDERED: RANITIDINE HCL150 MG ORAL (20:26)
[2019-01-09 20:40] VITALS: BP 128/85
--- NOTE | 2019-01-09 20:40 | NUR ---
ER DISCHARGE NOTE: Patient is cleared to be discharged per ERMD, pt is aox4, on room air, with stable vital signs. pt was given dc and prescription instructions, pt was able to verbalize understanding, pt id band and iv site removed without complications. pt is able to ambulate with steady gait. pt took all belongings. Taxi arranged and pt waiting in waiting room
--- NOTE | 2019-01-09 21:50 | Emergency Room Report ---
History of Present Illness General Chief Complaint: Abdominal Pain Source: Patient Present Illness HPI 43-year-old female presents ED for evaluation. In by EMS complaining of abdominal pain and palpitations which started earlier today. Pain is epigastric , burning, 5 out of 10, nonradiating. States her heart is racing. Patient is well-known to [facility] and has been here multiple times for anxiety complaints. Patient does have a psychiatric history. Denies chest pain or shortness of breath. No other aggravating relieving factors. Denies any other associated symptoms Allergies: Coded Allergies: No Known Allergies (Unverified , 11/26/12) Patient History Past Medical History: GERD, psych hx Past Surgical History: none Pertinent Family History: none Social History: Denies: smoking, alcohol use, drug use Now: No Immunizations: UTD Reviewed Nursing Documentation: PMH: Agreed; PSxH: Agreed Nursing Documentation-PMH Past Medical History: No History, Except For Hx Cardiac Problems: No - Anxiety, UTI, diarrhea Hx Hypertension: No Hx Pacemaker: No Hx Asthma: No Hx COPD: No Hx Diabetes: No Hx Cancer: No Hx Gastrointestinal Problems: Yes Hx Dialysis: No Hx Neurological Problems: No Hx Cerebrovascular Accident: No Hx Seizures: No Review of Systems All Other Systems: negative except mentioned in HPI Physical Exam Vital Signs Date Time Temp Pulse Resp B/P (MAP) Pulse Ox O2 Delivery O2 Flow Rate FiO2 01/09/19 18:03 98.4 90 20 132/90 (104) 97 Room Air Sp02 EP Interpretation: reviewed, normal General Appearance: no apparent distress, alert, GCS 15, non-toxic Head: normocephalic, atraumatic Eyes: bilateral eye normal inspection, bilateral eye PERRL ENT: hearing grossly normal, normal pharynx, no angioedema, normal voice Neck: full range of motion, supple/symm/no masses Respiratory: chest non-tender, lungs clear, normal breath sounds, speaking full sentences Cardiovascular #1: regular rate, rhythm, no edema Cardiovascular #2: 2+ carotid (R), 2+ carotid (L), 2+ radial (R), 2+ radial (L) , 2+ dorsalis pedis (R), 2+ dorsalis pedis (L) Gastrointestinal: normal bowel sounds, soft, non-distended, no guarding, no rebound, tenderness Rectal: deferred Genitourinary: normal inspection, no CVA tenderness Musculoskeletal: back normal, gait/station normal, normal range of motion, non- tender Neurologic: alert, oriented x3, responsive, motor strength/tone normal, sensory intact, speech normal Psychiatric: no suicidal/homicidal ideation, no delusions, anxious Reflexes: 3+ bicep (R), 3+ bicep (L), 3+ tricep (R), 3+ tricep (L), 3+ knee (R) , 3+ knee (L) Skin: normal color, no rash, warm/dry, well hydrated Lymphatic: no adenopathy Medical Decision Making Diagnostic Impression: Primary Impression: Gastritis Qualified Codes: K29.70 - Gastritis, unspecified, without bleeding Additional Impression: Anxiety ER Course Hospital Course 43-year-old F presents to ED with epigastric pain with palpitations differential diagnosis: gastritis, SBO, cholecystits Clinical course Patient placed on stretcher. On cardiac specialist. After initial history and physical I ordered labs, IV fluids, pepcid, GI cocktail, EKG Labs - no leukocytosis, no electrolyte abnormalities, LFTs normal, EKG- NSR, no acute ischemic change sinterpreted by me Upon reassessment, patient states pain has improved. findings consistent with gastritis Jareth findings with patient. Patient has been here multiple times recently for anxiety related complaints. She has also been previously evaluated by psychiatry here and patient does not meet work criteria for inpatient evaluation. Patient will be discharged home. I will provide prescriptions. I will provide referrals. Transportation will be arranged. I feel this is a highly complex case requiring extensive working including EKG/ Rhythm strip, Xray/CT/US, Blood/urine lab work, repeat exams while in ED, and administration of strong opiates/narcotics for pain control, admission to hospital or close patient follow up. Diagnosis - gastritis, anxiety Stable and discharged to home with prescriptions for Zantac. Followup with PMD/ psych. Return to ED if symptoms recur or worsen Labs Test 01/09/19 18:35 White Blood Count 8.0 K/UL (4.8-10.8) Red Blood Count 3.99 M/UL (4.20-5.40) Hemoglobin 13.2 G/DL (12.0-16.0) Hematocrit 40.3 % (37.0-47.0) Mean Corpuscular Volume 101 FL (80-99) Mean Corpuscular Hemoglobin 33.1 PG (27.0-31.0) Mean Corpuscular Hemoglobin Concent 32.8 G/DL (32.0-36.0) Red Cell Distribution Width 11.4 % (11.6-14.8) Platelet Count 247 K/UL (150-450) Mean Platelet Volume 8.1 FL (6.5-10.1) Neutrophils (%) (Auto) 66.6 % (45.0-75.0) Lymphocytes (%) (Auto) 20.3 % (20.0-45.0) Monocytes (%) (Auto) 8.9 % (1.0-10.0) Eosinophils (%) (Auto) 2.2 % (0.0-3.0) Basophils (%) (Auto) 1.9 % (0.0-2.0) Sodium Level 140 MMOL/L (136-145) Potassium Level 4.0 MMOL/L (3.5-5.1) Chloride Level 102 MMOL/L (98-107) Carbon Dioxide Level 30 MMOL/L (21-32) Anion Gap 8 mmol/L (5-15) Blood Urea Nitrogen 13 mg/dL (7-18) Creatinine 0.9 MG/DL (0.55-1.30) Estimat Glomerular Filtration Rate > 60 mL/min (>60) Glucose Level 103 MG/DL (74-106) Calcium Level 9.4 MG/DL (8.5-10.1) Total Bilirubin 0.1 MG/DL (0.2-1.0) Aspartate Amino Transf (AST/SGOT) 16 U/L (15-37) Alanine Aminotransferase (ALT/SGPT) 16 U/L (12-78) Alkaline Phosphatase 75 U/L (46-116) Total Protein 7.9 G/DL (6.4-8.2) Albumin 4.2 G/DL (3.4-5.0) Globulin 3.7 g/dL Albumin/Globulin Ratio 1.1 (1.0-2.7) Lipase 249 U/L (73-393) EKG Diagnostic Results Rate: normal Rhythm: NSR ST Segments: no acute changes ASA given to the pt in ED: No Rhythm Strip Diag. Results EP Interpretation: yes Rhythm: NSR, no PVC's Last Vital Signs Date Time Temp Pulse Resp B/P (MAP) Pulse Ox O2 Delivery O2 Flow Rate FiO2 01/09/19 20:40 98.4 92 20 128/85 98 Room Air Status: improved Disposition: HOME, SELF-CARE Condition: Stable Scripts Ranitidine Hcl* (ZANTAC*) 150 Mg Tablet 150 MG ORAL TWICE A DAY, #30 TAB Prov: Wilder Grimes MD 01/09/19 Ref[facility]: [facility] Patient Instructions: Gastritis, Adult, [id number] Wilder Grimes MD Jan 09, 2019 21:50
--- NOTE | 2019-01-12 12:19 | Cardiology Report ---
APPROVED REPORT EKG Measurement Heart [id number] Normal sinus rhythm Normal ECG
== END 2019-01-09 20:40 | disposition home or self-care (01) ==
LOC: EDBD 18:02 → EMR 18:15
DX: K29.70 Gastritis, unspecified, without bleeding (principal); F41.9 Anxiety disorder, unspecified; K21.9 Gastro-esophageal reflux disease without esophagitis
CPT/HCPCS: 36415; 80053; 83690; 85025; 93005; 96361; 96374; 99284; S0028

== ENCOUNTER 2019-01-11 19:30 | Emergency (ER) | payer MEDICARE, MEDICAID ==
[~2019-01-11] VITALS: Ht 160 cm; Wt 65.8 kg
--- NOTE | 2019-01-11 19:36 | NUR ---
ED Nurse Note: pt brought in by LAFJ Luis from a pharmacy, c/c chest pain, per EMS, pt started having chest pain about 45 min ago, 1 spray nitro and asa 325 mg given on field. pt states pain isn't relieved with medication, pt reports chest pain 10/10 on sternal area. pt AA&ox4, gcs=15, skin warm and dry, resp even and unlabored on RA, -n/v/d at this time, ambulates w/ steady gait, sinus tach on color television console monitor, VSS will cont monitor.
[2019-01-11 19:41] VITALS: BP 144/92
[2019-01-11 20:08] LABS: APPEARANCE,URINE CLEAR; BILIRUBIN, URINE NEGATIVE (NEGATIVE); COLOR,URINE PALE YELLOW; GLUCOSE, URINE (UA) NEGATIVE (NEGATIVE); KETONES,URINE NEGATIVE (NEGATIVE); LEUKOCYTE ESTERASE ,URINE 3+ (NEGATIVE); NITRITE,URINE NEGATIVE (NEGATIVE); PH,URINE 6 (4.5-8.0); PROTEIN,URINE NEGATIVE (NEGATIVE); UROBILINOGEN,URINE NORMAL MG/DL (0.0-1.0)
[2019-01-11 20:16] VITALS: BP 128/77
[2019-01-11 20:18] LABS: BASOPHILS % (AUTO) 1.6 % (0.0-2.0); EOSINOPHILS % (AUTO) 1.5 % (0.0-3.0); HEMATOCRIT 38.2 % (37.0-47.0); HEMOGLOBIN 12.6 G/DL (12.0-16.0); LYMPHOCYTES % (AUTO) 16.4 % (20.0-45.0); MEAN CORPUSCULAR VOLUME 101 FL (80-99); MONOCYTES % (AUTO) 5.1 % (1.0-10.0); NEUTROPHILS % (AUTO) 75.5 % (45.0-75.0); PLATELET COUNT 221 K/UL (150-450); RED CELL DISTRIBUTION WIDTH 11.6 % (11.6-14.8); WHITE BLOOD COUNT 10.9 K/UL (4.8-10.8)
[2019-01-11 20:19] LABS: ANION GAP 12 mmol/L (5-15); BLOOD UREA NITROGEN 10 mg/dL (7-18); CALCIUM 9.8 MG/DL (8.5-10.1); CARBON DIOXIDE 25 MMOL/L (21-32); CHLORIDE 104 MMOL/L (98-107); CREATININE 0.7 MG/DL (0.55-1.30); POTASSIUM 3.9 MMOL/L (3.5-5.1); SODIUM 141 MMOL/L (136-145)
--- NOTE | 2019-01-11 20:23 | NUR ---
ED Nurse Note: pt reports she still has pain, pt states she might be having panic attack, ERMD notified regarding pt's condition. no sx resp distress noted at this time, vss, nsr on night monitor, will cont monitor.
[2019-01-11 20:24] LABS: ALANINE AMINOTRANSFERASE 19 U/L (12-78); ALBUMIN 3.8 G/DL (3.4-5.0); ALBUMIN/GLOBULIN RATIO 0.9 (1.0-2.7); ALKALINE PHOSPHATASE 66 U/L (46-116); ASPARTATE AMINO TRANSFERASE 14 U/L (15-37); BILIRUBIN,TOTAL 0.2 MG/DL (0.2-1.0)
[2019-01-11] MEDS ORDERED: Acetaminophen 500mg (ES) tab ORAL ONE (20:30)
--- NOTE | 2019-01-11 22:15 | Emergency Room Report ---
History of Present Illness General Chief Complaint: Chest Pain Source: Patient, EMS Present Illness HPI 43-year-old female presents ED for evaluation. Brought in by EMS. Patient states she was having chest pain and was at grocery store and they called 911. Patient states her heart is racing. Patient is well-known to [facility]. Has history of anxiety and developmental delay. Has been here multiple times recently for similar presentation. Denies chest pain or shortness of breath. Denies alcohol or drug use. No other aggravating relieving factors. Denies any other associated symptoms Allergies: Coded Allergies: No Known Allergies (Unverified , 11/26/12) Patient History Past Medical History: psych hx Past Surgical History: none Pertinent Family History: none Social History: Denies: smoking, alcohol use, drug use Last Menstrual Period: na Now: No Immunizations: UTD Reviewed Nursing Documentation: PMH: Agreed; PSxH: Agreed Nursing Documentation-PMH Hx Cardiac Problems: No - Anxiety, UTI, diarrhea Hx Hypertension: No Hx Pacemaker: No Hx Asthma: No Hx COPD: No Hx Diabetes: No Hx Cancer: No Hx Gastrointestinal Problems: Yes Hx Dialysis: No Hx Neurological Problems: No Hx Cerebrovascular Accident: No Hx Seizures: No Review of Systems All Other Systems: negative except mentioned in HPI Physical Exam Vital Signs Date Time Temp Pulse Resp B/P (MAP) Pulse Ox O2 Delivery O2 Flow Rate FiO2 01/11/19 19:31 98.4 97 18 148/97 (114) 97 Room Air Sp02 EP Interpretation: reviewed, normal General Appearance: no apparent distress, alert, GCS 15, non-toxic Head: normocephalic, atraumatic Eyes: bilateral eye normal inspection, bilateral eye PERRL ENT: hearing grossly normal, normal pharynx, no angioedema, normal voice Neck: full range of motion, supple/symm/no masses Respiratory: chest non-tender, lungs clear, normal breath sounds, speaking full sentences Cardiovascular #1: regular rate, rhythm, no edema Cardiovascular #2: 2+ carotid (R), 2+ carotid (L), 2+ radial (R), 2+ radial (L) , 2+ dorsalis pedis (R), 2+ dorsalis pedis (L) Gastrointestinal: normal bowel sounds, non tender, soft, non-distended, no guarding, no rebound Rectal: deferred Genitourinary: normal inspection, no CVA tenderness Musculoskeletal: back normal, gait/station normal, normal range of motion, non- tender Neurologic: alert, oriented x3, responsive, motor strength/tone normal, sensory intact, speech normal Psychiatric: mood/affect normal, no suicidal/homicidal ideation, anxious Reflexes: 3+ bicep (R), 3+ bicep (L), 3+ tricep (R), 3+ tricep (L), 3+ knee (R) , 3+ knee (L) Skin: normal color, no rash, warm/dry, well hydrated Lymphatic: no adenopathy Medical Decision Making Diagnostic Impression: Primary Impression: Anxiety Additional Impression: Development delay ER Course Hospital Course 43-year-old female presents ED complaining of anxiety and chest pain Differential diagnoses include: ME/unstable angina, dehydration, anxiety Clinical course Patient placed on stretcher. on cardiac technologist. After initial history and physical I ordered labs, EKG, ativan labs reviewed- no leukocytosis, hemoglobin/hematocrit stable, troponins negative , electrolytes okay EKG - NSR, no acute ischemic changes interpreted by me Patient is well-known to [facility]. Has been here multiple times for anxiety related complaints. Mother typically drops patient off for evaluation. Mother is not at bedside today. Patient does have history of anxiety but does have some element of developmental delay. On review of EMR patient has been here multiple times recently. There is concern as to the well-being of the patient. While patient did request to be discharged I do not believe it was safe for patient to be discharged at this time. APS contacted. Social work evaluation of the patient in the morning. In the morning patient has been I would by social service coordinator and cleared for discharge. APS will go to patient's home to evaluate patient and mother today I. I feel this is a highly complex case requiring extensive working including EKG/Rhythm strip, Xray/CT/US, Blood/urine lab work, repeat exams while in ED, and administration of strong opiates/narcotics for pain control, admission to hospital or close patient follow up. Diagnosis - anxiety, developmental delay Stable and discharged to home. Followup with PMD. Return to ED if symptoms recur or worse Labs Test 01/11/19 19:50 White Blood Count 10.9 K/UL (4.8-10.8) Red Blood Count 3.80 M/UL (4.20-5.40) Hemoglobin 12.6 G/DL (12.0-16.0) Hematocrit 38.2 % (37.0-47.0) Mean Corpuscular Volume 101 FL (80-99) Mean Corpuscular Hemoglobin 33.1 PG (27.0-31.0) Mean Corpuscular Hemoglobin Concent 33.0 G/DL (32.0-36.0) Red Cell Distribution Width 11.6 % (11.6-14.8) Platelet Count 221 K/UL (150-450) Mean Platelet Volume 8.4 FL (6.5-10.1) Neutrophils (%) (Auto) 75.5 % (45.0-75.0) Lymphocytes (%) (Auto) 16.4 % (20.0-45.0) Monocytes (%) (Auto) 5.1 % (1.0-10.0) Eosinophils (%) (Auto) 1.5 % (0.0-3.0) Basophils (%) (Auto) 1.6 % (0.0-2.0) Urine Color Pale yellow Urine Appearance Clear Urine pH 6 (4.5-8.0) Urine Specific [place] 1.015 (1.005-1.035) Urine Protein Negative (NEGATIVE) Urine Glucose (UA) Negative (NEGATIVE) Urine Ketones Negative (NEGATIVE) Urine Blood Negative (NEGATIVE) Urine Nitrite Negative (NEGATIVE) Urine Bilirubin Negative (NEGATIVE) Urine Urobilinogen Normal MG/DL (0.0-1.0) Urine Leukocyte Esterase 3+ (NEGATIVE) Urine RBC 0 /HPF (0 - 2) Urine WBC 10-15 /HPF (0 - 2) Urine Squamous Epithelial Cells Occasional /LPF Urine Bacteria Few /HPF (NONE) Urine HCG, Qualitative Negative (NEGATIVE) Sodium Level 141 MMOL/L (136-145) Potassium Level 3.9 MMOL/L (3.5-5.1) Chloride Level 104 MMOL/L (98-107) Carbon Dioxide Level 25 MMOL/L (21-32) Anion Gap 12 mmol/L (5-15) Blood Urea Nitrogen 10 mg/dL (7-18) Creatinine 0.7 MG/DL (0.55-1.30) Estimat Glomerular Filtration Rate > 60 mL/min (>60) Glucose Level 115 MG/DL (74-106) Calcium Level 9.8 MG/DL (8.5-10.1) Total Bilirubin 0.2 MG/DL (0.2-1.0) Aspartate Amino Transf (AST/SGOT) 14 U/L (15-37) Alanine Aminotransferase (ALT/SGPT) 19 U/L (12-78) Alkaline Phosphatase 66 U/L (46-116) Total Protein 7.8 G/DL (6.4-8.2) Albumin 3.8 G/DL (3.4-5.0) Globulin 4.0 g/dL Albumin/Globulin Ratio 0.9 (1.0-2.7) Salicylates Level 1.9 ug/mL (2.8-20) Urine Opiates Screen Negative (NEGATIVE) Acetaminophen Level < 2 MCG/ML (10-30) Urine Barbiturates Screen Negative (NEGATIVE) Phencyclidine (PCP) Screen Negative (NEGATIVE) Urine Amphetamines Screen Negative (NEGATIVE) Urine Benzodiazepines Screen Negative (NEGATIVE) Urine Cocaine Screen Negative (NEGATIVE) Urine Marijuana (THC) Screen Negative (NEGATIVE) Serum Alcohol < 3 mg/dL EKG Diagnostic Results Rate: normal Rhythm: NSR ST Segments: no acute changes ASA given to the pt in ED: No Rhythm Strip Diag. Results EP Interpretation: yes Rhythm: NSR, no PVC's, no ectopy Last Vital Signs Date Time Temp Pulse Resp B/P (MAP) Pulse Ox O2 Delivery O2 Flow Rate FiO2 01/11/19 20:16 98.4 87 30 128/77 98 Room Air Status: improved Disposition: HOME, SELF-CARE Condition: Stable Referrals: NOT CHOSEN IPA/,REFERRING (PCP) Wilder Grimes MD Jan 11, 2019 22:15
[2019-01-11 22:16] VITALS: BP 122/76
--- NOTE | 2019-01-11 22:45 | NUR ---
ED Nurse Note: pt states she can't go to sleep without taking medication for sleeping but unable to state what medication she takes, ermd notified.
[2019-01-11] MEDS ORDERED: LORazepam Inj 2mg/ml 1ml IV ONE (23:00)
[2019-01-12 00:16] VITALS: BP 119/67
--- NOTE | 2019-01-12 01:00 | NUR ---
ED Nurse Note: pt sleeping at this time, vss, resp even and unlabored on RA, NSR on manager monitoring, will cont monitor. safety precautions in place.
[2019-01-12 02:16] VITALS: BP 121/74
--- NOTE | 2019-01-12 03:56 | NUR ---
ED Nurse Note: pt resting, denies pain, vss, nsr on child monitor, no sx distress, will contact group care worker in the morning and continue to monitor. safety precautions in place. iv intact and patent.
[2019-01-12 05:14] VITALS: BP 124/72
--- NOTE | 2019-01-12 05:29 | NUR ---
ER Nurse Note: Pt calm, cooperative. Pt no signs of distress, VSS, no complaints of pain. Pt ambulatory with steady gait; no difficulty voiding. Pt assisted to restroom when needed. SLIV on hand; patent. Pt resting in bed. Awaiting SW in AM. All safety measures met; will continue to monitor.
--- NOTE | 2019-01-12 07:50 | NUR ---
SPOKE TO FINANCIAL LEGAL ASSISTANT ELISHA REGARDING THE PATIENT WILL EVALUATE THE SITUATION
--- NOTE | 2019-01-12 08:08 | NUR ---
HAND-OFF: Report given to RN Raghav and endorsed care. pt vss, resp even and unlabored on RA, no sx distress.
[2019-01-12 08:30] VITALS: BP 130/85
--- NOTE | 2019-01-12 08:30 | NUR ---
ED Nurse Note: ZANE Jolanta at the bed side. per ZANE, mom will pick pt at 0900 and APS will visit pt's home. will wait for the mom.
--- NOTE | 2019-01-12 09:24 | NUR ---
Social Work This SW received a consult due to patient has had multiple readmissions into this ED (fifteen this year, five this month), with complaints of chest pain, with no medical problems or complications found. ED nursing here has filed APS, according to [facility] certified surgical assistant. This SW spoke with patients mother, Chandan Fox @ [phone] to express concerns regarding patient needing a higher level of care. This SW recommended Assisted Living or SNF if patient is requiring further attention/medical monitoring. This SW also advised mother regarding follow up appointments, as needed with outpatient Primary M.D. Mother stating patient will refuse going anywhere other than home with mother. Mother reports she has been assisting patient with most ADLS, while patient is ambulatory (stand by assist) without using any DME. Mother aware to follow up with patients primary M.D to obtain wheelchair or walker, as needed. Mother also stating that patient is the one calling 911 and requesting to come to this ED. This SW met with patient in ED to inform our concerns that she may require higher level of care, if she is needing multiple readmissions into this ED. Patient appears slow, but stating "I am sick." This SW informed patient and mother regarding worker (APS) coming into the home, to provide any additional services that patient may require. This SW discussed with patient level of anxiety at home, encouraging to manage this with medication. Mother and patient both confirmed that patient has been taking her medications. Nursing informed regarding this SW intervention provided. Addendum: 01/12/19 at 0935 by ELISHA TALAMANTES Addendum: Patients mother confirmed with this SW that she will come and transport patient to home at 9 AM today. Addendum: 01/12/19 at 0937 by ELISHA TALAMANTES Patient informing this SW that she does not want any other placement, prefers to return home with her mother.
[2019-01-12 09:29] VITALS: BP 130/85
--- NOTE | 2019-01-12 09:30 | NUR ---
ER DISCHARGE NOTE: Patient is cleared to be discharged per ERMD, pt is aox4, on room air, with stable vital signs. pt was given dc instructions, pt's mom was able to verbalize understanding, pt id band removed. pt is able to ambulate with steady gait. pt took all belongings.
--- NOTE | 2019-01-12 11:39 | Cardiology Report ---
APPROVED REPORT EKG Measurement Heart [id number] Normal sinus rhythm Normal ECG
== END 2019-01-12 09:30 | disposition home or self-care (01) ==
LOC: EDBD 19:30 → EMR 20:09
DX: F41.9 Anxiety disorder, unspecified (principal); R62.50 Unspecified lack of expected normal physiological development in childhood
CPT/HCPCS: 36415; 80053; 80307; 81003; 81025; 85025; 87086; 93005; 96361; 96374; 99284; G0480; 80329

== ENCOUNTER 2019-01-19 19:48 | Emergency (ER) | payer MEDICARE, MEDICAID ==
[~2019-01-19] VITALS: Ht 160 cm; Wt 68.0 kg
--- NOTE | 2019-01-19 19:56 | Emergency Room Report ---
History of Present Illness General Chief Complaint: Palpitations Source: Patient Present Illness HPI 43-year-old female with history of chronic anxiety known mental retardation status here brought in by paramedics complaining of palpitation chest pain. Patient has been to [facility] multiple times with the same complaint in the past month. Patient reports that she is up-to-date with taking her anxiety medication and has been having chest pain for several months now. Patient reports that she has an appointment with her primary care physician this coming Tuesday. Denies syncope, dizziness, abdominal pain, nausea vomiting. Denies SI or HI. Allergies: Coded Allergies: No Known Allergies (Unverified , 11/26/12) Patient History Past Medical History: see triage record Past Surgical History: unable to obtain Pertinent Family History: none Now: No Immunizations: UTD Reviewed Nursing Documentation: PMH: Agreed; PSxH: Agreed Nursing Documentation-PMH Past Medical History: No History, Except For Hx Cardiac Problems: No - Anxiety, UTI, diarrhea Hx Hypertension: No Hx Pacemaker: No Hx Asthma: No Hx COPD: No Hx Diabetes: No Hx Cancer: No Hx Gastrointestinal Problems: Yes Hx Dialysis: No Hx Neurological Problems: No Hx Cerebrovascular Accident: No Hx Seizures: No Review of Systems All Other Systems: negative except mentioned in HPI Physical Exam Vital Signs Date Time Temp Pulse Resp B/P (MAP) Pulse Ox O2 Delivery O2 Flow Rate FiO2 01/19/19 19:51 98.6 98 16 144/99 (114) 100 Room Air Sp02 EP Interpretation: reviewed, normal General Appearance: normal inspection, well appearing, no apparent distress, alert Head: normocephalic, atraumatic Eyes: bilateral eye normal inspection, bilateral eye PERRL ENT: normal ENT inspection, hearing grossly normal Neck: normal inspection, full range of motion, supple Respiratory: normal inspection, chest non-tender, lungs clear, no rhonchi, no wheezing Cardiovascular #1: normal inspection, regular rate, rhythm, no murmur Gastrointestinal: normal inspection, non tender Genitourinary: normal inspection, no CVA tenderness Musculoskeletal: normal inspection, back normal Neurologic: normal inspection, alert, oriented x3 Psychiatric: normal inspection, judgement/insight normal, memory normal Skin: no rash Lymphatic: normal inspection, no adenopathy Medical Decision Making PA Attestation All my diagnosis and treatment plans were reviewed ad discussed with my supervising physician Dr. Avila Diagnostic Impression: Primary Impression: Palpitations ER Course 43-year-old female with history of chronic anxiety known mental retardation status here brought in by paramedics complaining of palpitation chest pain. Patient has been to [facility] multiple times with the same complaint in the past month. Patient reports that she is up-to-date with taking her anxiety medication and has been having chest pain for several months now. Patient reports that she has an appointment with her primary care physician this coming Tuesday. Denies syncope, dizziness, abdominal pain, nausea vomiting. Denies SI or HI. Ddx considered but are not limited to: generalized anxiety disorder, panic attack, depression with psycotic featurs, bipolar disorder, drug overdose Vital signs: are WNL, pt. is afebrile H&PE are most consistent with: Anxiety and palpitations ORDERS: EKG ED INTERVENTIONS: None required at this time. DISCHARGE: At this time pt. is stable for d/c to home. Will provide printed patient care instructions, and any necessary prescriptions. Care plan and follow up instructions have been discussed with the patient prior to discharge. EKG Diagnostic Results Rate: normal Rhythm: NSR ST Segments: no acute changes Last Vital Signs Date Time Temp Pulse Resp B/P (MAP) Pulse Ox O2 Delivery O2 Flow Rate FiO2 01/19/19 19:51 98.6 98 16 144/99 (114) 100 Room Air Disposition: HOME, SELF-CARE Condition: Stable Patient Instructions: Palpitations Marcela Dumont Jan 19, 2019 19:55
[2019-01-19 20:10] VITALS: BP 144/99
--- NOTE | 2019-01-19 20:10 | NUR ---
ED Nurse Note: Patient was BIBA from home, due to palpitation. AAO x3, VSS at this time, skin is dry, warm to touch.
[2019-01-19 20:20] VITALS: BP 144/99
--- NOTE | 2019-01-19 20:20 | NUR ---
ED Nurse Note: Pt cleared by health care Provider for discharge. DC instructions/prescription was given and explained to pt and verbalized understanding of teachings. All medical deviecs such as ID band removed. Pt is AAO x4, ambulatory and left with all personal belongings.
== END 2019-01-19 20:20 | disposition home or self-care (01) ==
LOC: EDBD 19:48 → EMR 20:01
DX: R00.2 Palpitations (principal); F41.9 Anxiety disorder, unspecified; F79 Unspecified intellectual disabilities
CPT/HCPCS: 99283

== ENCOUNTER 2019-01-25 15:57 | Emergency (ER) | payer MEDICARE, MEDICAID ==
[~2019-01-25] VITALS: Ht 154.9 cm; Wt 61.2 kg
[2019-01-25 15:58] VITALS: BP 120/89
--- NOTE | 2019-01-25 16:21 | NUR ---
ED Nurse Note: Pt. is AAOX4. ambulatory with limited assistance. Brought in by ambulance from home due to low back pain.
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
[2019-01-25] MEDS ORDERED: TYLENOL EXTRA500 MG ORAL (17:38)
--- NOTE | 2019-01-25 18:10 | NUR ---
ED Nurse Note: DID MULTUPLE ATTEMPTS OF CALLING PT.'S MOM TO PICK HER UP BUT AFTER FEW RINGS, THE PHONE GOES TO A VOICEMAIL. LEFT A VOICEMAIL TO THE MOM'S PHONE THAT PT. IS READY TO GET PICKED UP
[2019-01-25 18:59] VITALS: BP 133/86
--- NOTE | 2019-01-25 18:59 | NUR ---
ER DISCHARGE NOTE: Patient is cleared to be discharged per ERMD, pt is aox4, on room air, with stable vital signs. pt was given dc and prescription instructions, pt was able to verbalize understanding, pt id band removed. pt is able to ambulate with steady gait. pt took all belongings. taxi voucher provided.
== END 2019-01-25 18:59 | disposition home or self-care (01) ==
LOC: EDBD 15:57 → EMR 16:35
DX: M54.5 Low back pain (principal); G89.29 Other chronic pain
CPT/HCPCS: 99283

== ENCOUNTER 2019-04-13 10:07 | Day surgery (SDC) | payer MEDICARE, MEDICAID ==
[~2019-04-13] VITALS: Ht 154.9 cm; Wt 65.8 kg
[2019-04-13] VITALS (9 sets, daily range): BP systolic 100–126; BP diastolic 70–87
[~2019-04-13 10:07] MED LIST changes: +LR 1000ml 1,000 ML IVLG SCH
--- NOTE | 2019-04-13 12:25 | Anethesia Preoperative Eval ---
Anesthesia Pre-op PMH/ROS General Date of Evaluation: Apr 13, 2019 Time of Evaluation: 12:43 Anesthesiologist: Yara Garcia CRNA ASA Score: ASA 2 Mallampati Score Class I : Soft palate, uvula, fauces, pillars visible Class II: Soft palate, uvula, fauces visible Class III: Soft palate, base of uvula visible Class IV: Only hard plate visible Mallampati Classification: Class II Surgeon: Brayan Diagnosis: GERD Surgical Procedure: EGD Anesthesia History: none Family History: no anesthesia problems Allergies: Coded Allergies: No Known Allergies (Unverified , 11/26/12) Medications: see eMAR Patient NPO?: Yes NPO Date: Apr 13, 2019 NPO Time: 00:00 Past Medical History Cardiovascular: Denies: HTN, CAD, OR, valve dz, arrhythmia, other Pulmonary: Denies: asthma, COPD, MYRA, other Gastrointestinal/Genitourinary: Reports: GERD, other - UTI; Denies: CRI, ESRD Neurologic/Psychiatric: Reports: depression/anxiety, other - developmental delay; Denies: dementia, CVA, TIA Endocrine: Denies: DM, hypothyroidism, steroids, other HEENT: Denies: cataract (L), cataract (R), glaucoma, [place] (L), [place] (R), other Hematology/Immune: Denies: anemia, DVT, bleeding disorder, other Musculoskeletal/Integumentary: Denies: OA, RA, DJD, DDD, edema, other PMH Narrative: as noted above PSxH Narrative: none Anesthesia Pre-op Phys. Exam Physician Exam Constitutional: NAD Neurologic: other - developmental delayed, mom at bedside Cardiovascular: RRR Respiratory: CTA Gastrointestinal: S/NT/ND Airway Exam Mallampati Score: Class II Neck: FROM TMD: > 3 FB ROM: full Teeth: intact Dentures: no upper, no lower Anesthesia Pre-op A/P Labs Laboratory Tests Test 04/13/19 12:25 Human Chorionic Gonadotropin, Qual Negative (NEGATIVE) Risk Assessment & Plan Assessment: ASA 2, ok to proceed Plan: MAC Status Change Before Surgery: No Pre-Antibiotics Given Within 1 Hr of Incision: Yara Cerna CRNA Apr 13, 2019 12:25
--- NOTE | 2019-04-13 12:57 | Short Stay Surgery H&P ---
History of Present Illness History of Present Illness Chief Complaint see office consult note HPI St Ramirez is a 43 year old female who was admitted on for GERD Patient History Allergies: Coded Allergies: No Known Allergies (Unverified , 11/26/12) Medication History Scheduled Acetaminophen* (Tylenol Extra Strength*), 500 MG ORAL Q6H Clonazepam* (Klonopin*), 1 MG ORAL Q6H Mirtazapine (Mirtazapine), 45 MG ORAL BEDTIME, (Reported) Nitrofurantoin Monohyd/M-Cryst* (Macrobid 100 Mg*), 100 MG ORAL EVERY 12 HOURS Quetiapine Fumarate (Seroquel), 300 MG ORAL QHS, (Reported) Ranitidine Hcl* (Zantac*), 150 MG ORAL TWICE A DAY Risperidone (Risperidone), 1 MG ORAL BID, (Reported) Scheduled PRN Clonazepam (Clonazepam), 1 MG PO BID PRN for For Anxiety, (Reported) Physical Exam Labs Laboratory Tests Test 04/13/19 12:25 Human Chorionic Gonadotropin, Qual Negative (NEGATIVE) Plan Attestation Are the patient's medical conditions optimized for surgery? Anjel Schmidt MD Apr 13, 2019 12:57
--- NOTE | 2019-04-13 12:57 | Pre-Procedure Note/Attestation ---
Pre-Procedure Note/Attestation Complete Prior to Procedure Planned Procedure: not applicable Procedure Narrative: egd Indications for Procedure Pre-Operative Diagnosis: gerd Attestation I attest that I discussed the nature of the procedure; its benefits; risks and complications; and alternatives (and the risks and benefits of such alternatives ), prior to the procedure, with the patient (or the patient's legal office machines sales representative). I attest that, if there was a reasonable possibility of needing a blood transfusion, the patient (or the patient's legal office machines sales representative) was given the [facility] standardized written summary, pursuant to the [place] Blood Safety Act ([place] Health and Safety Code # 1645, as amended). I attest that I re-evaluated the patient just prior to the surgery and that there has been no change in the patient's H&P, except as documented below: Anjel Schmidt MD Apr 13, 2019 12:57
[2019-04-13] MEDS ORDERED: LR 1000ml ONE (13:00)
[2019-04-13] MEDS ORDERED: Propofol 200mg/20ml IV ONE (13:00)
[2019-04-13] MEDS ORDERED: Lidocaine 1% MPF 10mg/ml 5ml ONE (13:00)
--- NOTE | 2019-04-13 13:13 | Endoscopy Procedure Note ---
Endoscopy Procedure Note General Indication for Procedure: gerd Procedures Performed: EGD Operative Findings/Diagnosis: gastritis Specimen: yes Pt Tolerated Procedure Well: Yes Estimated Blood Loss: none Anesthesia Anesthesiologist: kaye Anesthesia: MAC Inserted Devices Implant(s) used?: No GI Core Measures 50 yrs or older w/o bx or poly: Not Applicable 10yrs. F/U recommended: Not Applicable Anjel Schmidt MD Apr 13, 2019 13:13
--- NOTE | 2019-04-13 13:25 | Immediate Post-Op Evaluation ---
Immediate Post-Op Evalulation Immediate Post-Op Evalulation Procedure: EGD with biopsies Date of Evaluation: Apr 13, 2019 Time of Evaluation: 13:22 IV Fluids: LR 300 ml Blood Pressure Systolic: 100 Blood Pressure Diastolic: 72 Pulse Rate: 79 Respiratory Rate: 23 O2 Sat by Pulse Oximetry: 99 Temperature (Fahrenheit): 97.5 Pain Score (1-10): 0 Nausea: No Vomiting: No Complications none Patient Status: awake, reacts Given Within 1 Hr of Incision: Yara Cerna CRNA Apr 13, 2019 13:24
--- NOTE | 2019-04-13 13:26 | 48 Hour Post Anesthesia Eval ---
Post Anesthesia Evaluation Procedure: EGD with biopsies Date of Evaluation: Apr 13, 2019 Time of Evaluation: 13:25 Blood Pressure Systolic: 108 0: 75 Pulse Rate: 75 Respiratory Rate: 20 Temperature (Fahrenheit): 97.5 O2 Sat by Pulse Oximetry: 98 Airway: patent Nausea: No Vomiting: No Pain Intensity: 0 Hydration Status: adequate Cardiopulmonary Status: stable Follow-up Care/Observations: per GI Post-Anesthesia Complications: none Yara Garcia CRNA Apr 13, 2019 13:26
--- NOTE | 2019-04-13 17:00 | Procedure Note ---
DATE OF PROCEDURE: 04/13/2019 SURGEON: Anjel Schmidt M.D. PROCEDURE: Upper endoscopy with biopsy. ANESTHESIA: Per Yara CANTRELL. INSTRUMENT: Olympus adult flexible upper endoscope. INDICATION: Dysphagia, chronic GERD, abdominal pain. REASON FOR PROCEDURE: The procedure, risks, benefits, and possible consequences, including hemorrhage, aspiration, perforation and infection, and alternative treatments, were explained to the patient/legal guardian by Dr. Anjel Schmidt and the patient/legal guardian understood and accepted these risks. PROCEDURE IN DETAIL: After informed consent was obtained, the patient was adequately sedated, Olympus upper endoscope was advanced from mouth into the second portion of the duodenum and retroflexion was performed in the stomach. The patient had evidence of diffuse gastritis. Random biopsy from antrum was obtained to rule out H. pylori infection. Otherwise, the rest of upper endoscopic examination grossly looked within normal limits. GE junction at 35 cm from the incisors. The patient tolerated procedure very well without complication. SUMMARY OF FINDINGS: 1. Gastritis. 2. GE junction at 35 cm from the incisors. 3. No any other findings. RECOMMENDATIONS: Follow up biopsy results and treat accordingly. I want to thank Dr. Zaheer Hickey, for this kind referral. Anjel Schmidt M.D. DR: KYLE JOB#: [id number] CC: Zaheer Hickey M.D.; Fax#: [phone]
== END 2019-04-13 15:30 | disposition home or self-care (01) ==
LOC: GAS 10:07
DX: K21.9 Gastro-esophageal reflux disease without esophagitis (principal); R13.10 Dysphagia, unspecified; R10.9 Unspecified abdominal pain; Z79.899 Other long term (current) drug therapy; F32.9 Major depressive disorder, single episode, unspecified; F41.9 Anxiety disorder, unspecified; R62.50 Unspecified lack of expected normal physiological development in childhood; K29.50 Unspecified chronic gastritis without bleeding
CPT/HCPCS: 36415; 43239; 84703; J2704; 94003; 94150

== ENCOUNTER 2019-04-24 09:01 | Outpatient (CLI) | payer MEDICARE, MEDICAID ==
[~2019-04-24 09:01] MED LIST changes: -LR 1000ml 1,000 ML IVLG SCH
[2019-04-24] MEDS ORDERED: UNOBMED (09:58)
--- NOTE | 2019-04-24 10:11 | General Progress Note ---
Assessment/Plan Problem List: (1) Development delay ICD Codes: R62.50 - Unspecified lack of expected normal physiological development in childhood SNOMED: 265258647 (2) Anxiety ICD Codes: F41.9 - Anxiety disorder, unspecified SNOMED: 25236050 (3) Gastritis (4) abdominal pain Assessment/Plan: EGD reviewed for the patient mother c/o new neurological symptoms mother wanted her to be admitted to the hospital patient was referred to the ER Subjective ROS Limited/Unobtainable: Yes Allergies: Coded Allergies: No Known Allergies (Unverified , 11/26/12) Objective General Appearance: alert EENT: normal ENT inspection Neck: supple Cardiovascular: normal rate Respiratory/Chest: lungs clear Abdomen: normal bowel sounds, non tender, soft Extremities: non-tender Anjel Schmidt MD Apr 24, 2019 10:11
== END 2019-04-24 11:01 | disposition home or self-care (01) ==
LOC: PAN 09:01
DX: K29.70 Gastritis, unspecified, without bleeding (principal); F41.9 Anxiety disorder, unspecified; R10.9 Unspecified abdominal pain; R62.50 Unspecified lack of expected normal physiological development in childhood
CPT/HCPCS: 99212

== ENCOUNTER 2019-04-24 09:31 | Inpatient (IN) | payer MEDICARE, MEDICAID ==
[~2019-04-24] VITALS: Ht 152.4 cm; Wt 59.0 kg
[2019-04-24] MEDS ORDERED: UNOBMED (09:58)
--- NOTE | 2019-04-24 09:58 | NUR ---
ED Nurse Note: Mom here, but does not have a medication list.
--- NOTE | 2019-04-24 10:08 | Emergency Room Report ---
History of Present Illness General Chief Complaint: Abdominal Pain Source: Family Member, Medical Record Present Illness HPI 43-year-old female history of mental retardation, anxiety unable to care for self presents with frequent falls, generalized failure to thrive per mother, has been ongoing for 2 months, has been worsening, patient is unable to give a history secondary to her mental retardation she does states I have abdominal pain, she has been scoped in the past with negative GI scope, unknown aggravating relieving factors severity is moderate, constant, characterization is generalized weakness, no fever no chills per mom. Allergies: Coded Allergies: No Known Allergies (Unverified , 11/26/12) Patient History Limited by: medical condition - Mental retardation Past Medical History: see triage record Reviewed Nursing Documentation: PMH: Agreed; PSxH: Agreed Nursing Documentation-PMH Past Medical History: No History, Except For Hx Cardiac Problems: No Hx Pacemaker: No Hx Asthma: No Hx COPD: No Hx Diabetes: No Hx Cancer: No Hx Gastrointestinal Problems: Yes - Gastritis Hx Dialysis: No Hx Neurological Problems: Yes - Developmental delay Hx Cerebrovascular Accident: No Hx Seizures: No Review of Systems All Other Systems: limited - Mental retardation Physical Exam Vital Signs Date Time Temp Pulse Resp B/P (MAP) Pulse Ox O2 Delivery O2 Flow Rate FiO2 04/24/19 09:53 97.9 122 18 108/65 (79) 95 Room Air Sp02 EP Interpretation: reviewed, normal General Appearance: alert, GCS 15, non-toxic Head: normocephalic, atraumatic Eyes: bilateral eye PERRL, bilateral eye EOMI ENT: uvula midline, dry mucus membranes Neck: supple, thyroid normal, supple/symm/no masses Respiratory: lungs clear, no respiratory distress, no retraction, no accessory muscle use Cardiovascular #1: normal peripheral pulses, regular rate, rhythm, no edema, no gallop, no murmur Gastrointestinal: non tender, soft, no guarding, no rebound Musculoskeletal: normal inspection Neurologic: alert, responsive Psychiatric: mood/affect normal Skin: no rash, warm/dry Medical Decision Making Diagnostic Impression: Primary Impression: Dehydration Additional Impression: Failure to thrive in adult ER Course 43-year-old female history of mental retardation presents with failure to thrive , unable to take care of herself, will admit patient for rehydration, marriage and family social worker, patient will most likely need a long term facility Patient admitted to Dr. Hickey Laboratory Tests Test 04/24/19 09:50 04/24/19 10:05 White Blood Count 8.2 K/UL (4.8-10.8) Red Blood Count 4.33 M/UL (4.20-5.40) Hemoglobin 14.0 G/DL (12.0-16.0) Hematocrit 43.2 % (37.0-47.0) Mean Corpuscular Volume 100 FL (80-99) H Mean Corpuscular Hemoglobin 32.3 PG (27.0-31.0) H Mean Corpuscular Hemoglobin Concent 32.3 G/DL (32.0-36.0) Red Cell Distribution Width 11.4 % (11.6-14.8) L Platelet Count 184 K/UL (150-450) Mean Platelet Volume 9.7 FL (6.5-10.1) Neutrophils (%) (Auto) 72.6 % (45.0-75.0) Lymphocytes (%) (Auto) 14.9 % (20.0-45.0) L Monocytes (%) (Auto) 7.3 % (1.0-10.0) Eosinophils (%) (Auto) 3.9 % (0.0-3.0) H Basophils (%) (Auto) 1.2 % (0.0-2.0) Prothrombin Time 10.7 SEC (9.30-11.50) Prothrombin Time INR 1.0 (0.9-1.1) PTT 28 SEC (23-33) Sodium Level 142 MMOL/L (136-145) Potassium Level 3.6 MMOL/L (3.5-5.1) Chloride Level 104 MMOL/L (98-107) Carbon Dioxide Level 27 MMOL/L (21-32) Anion Gap 11 mmol/L (5-15) Blood Urea Nitrogen 4 mg/dL (7-18) L Creatinine 0.8 MG/DL (0.55-1.30) Estimate Glomerular Filtration Rate > 60 mL/min (>60) Glucose Level 131 MG/DL (74-106) H Lactic Acid Level 2.30 mmol/L (0.4-2.0) H Calcium Level 9.6 MG/DL (8.5-10.1) Phosphorus Level 3.2 MG/DL (2.5-4.9) Magnesium Level 1.7 MG/DL (1.8-2.4) L Total Bilirubin 0.5 MG/DL (0.2-1.0) Aspartate Amino Transferase (AST) 18 U/L (15-37) Alanine Aminotransferase (ALT) 14 U/L (12-78) Alkaline Phosphatase 65 U/L (46-116) Total Creatine Kinase 140 U/L (26-308) Creatine Kinase MB 1.1 NG/ML (0.0-3.6) Creatine Kinase MB Relative Index 0.7 Troponin I 0.000 ng/mL (0.000-0.056) Pro-B-Type Natriuretic Peptide 28 pg/mL (0-125) Total Protein 7.8 G/DL (6.4-8.2) Albumin 3.9 G/DL (3.4-5.0) Globulin 3.9 g/dL Albumin/Globulin Ratio 1.0 (1.0-2.7) Lipase 132 U/L (73-393) Thyroid Stimulating Hormone (TSH) 1.158 uiU/mL (0.358-3.740) Free Thyroxine 1.15 NG/DL (0.76-1.46) Free Triiodothyronine 2.5 pg/mL (2.3-4.2) Urine Color Brown Urine Appearance Clear Urine pH 5 (4.5-8.0) Urine Specific [place] 1.025 (1.005-1.035) Urine Protein 1+ (NEGATIVE) H Urine Glucose (UA) Negative (NEGATIVE) Urine Ketones 2+ (NEGATIVE) H Urine Blood Negative (NEGATIVE) Urine Nitrite Negative (NEGATIVE) Urine Bilirubin Negative (NEGATIVE) Urine Urobilinogen Normal MG/DL (0.0-1.0) Urine Leukocyte Esterase 1+ (NEGATIVE) H Urine RBC 0-2 /HPF (0 - 2) Urine WBC 0-2 /HPF (0 - 2) Urine Squamous Epithelial Cells Occasional /LPF Urine Bacteria Occasional /HPF (NONE) Urine Mucus Few /LPF (NONE/OCC) H Urine HCG, Qualitative Negative (NEGATIVE) EKG Diagnostic Results EKG Time: 09:54 EP Interpretation: Sinus tachycardia, rate 112, QTc 480, no acute ST elevations , normal axis Rhythm Strip Diag. Results Rhythm Strip Time: 10:11 EP Interpretation: yes Rate: 104 Rhythm: no PVC's, no ectopy, other - Sinus tachycardia Chest X-Ray Diagnostic Results Chest X-Ray Diagnostic Results : Chest X-Ray Ordered: Yes # of Views/Limited/Complete: 1 View Indication: Other - Weakness EP Interpretation: Yes Interpretation: no consolidation, no effusion, no pneumothorax, no acute cardiopulmonary disease Impression: No acute disease Electronically Signed by: Raheem Tinoco MD CT/MRI/US Diagnostic Results CT/MRI/US Diagnostic Results : Impression Procedure: CT Head no Contrast Indications: Head pain, status post fall, frequent falling Technique: Spiral acquisitions obtained through the brain. Angled axial and coronal 5 x 5 mm slices were reconstructed. Total dose length product 1208 mGycm. CTDI vol(s) 60 mGy. Dose reduction achieved using automated exposure control Comparison: 05/05/2017 Findings: No acute intracranial hemorrhage or edema. No mass effect nor midline shift. Normal cole-white differentiation. Normal size ventricles and extra axial CSF spaces. Intact calvarium. The mastoids are clear. Visualized orbits are unremarkable. There is minimal ethmoid sinus disease and sphenoid sinus disease. No significant interim change Impression: Negative The CT scanner at [facility] is accredited by the [employer] and the scans are performed using protocols designed to limit radiation exposure to as low as reasonably achievable to attain images of sufficient resolution adequate for diagnostic evaluation. Dictated By: Brennan Nelson MD Electronically Signed By: Brennan Nelson MD Signed Date/Time 04/24/19 1201 CC: Raheem Tinoco MD Last Vital Signs Date Time Temp Pulse Resp B/P (MAP) Pulse Ox O2 Delivery O2 Flow Rate FiO2 04/24/19 09:53 97.9 122 18 108/65 (79) 95 Room Air Disposition: ADMITTED INPATIENT Condition: Stable Referrals: Anjel Schmidt MD (PCP) Raheem Tinoco MD Apr 24, 2019 10:08
[2019-04-24 10:14] VITALS: BP 108/65
[2019-04-24 10:16] LABS: BASOPHILS % (AUTO) 1.2 % (0.0-2.0); EOSINOPHILS % (AUTO) 3.9 % (0.0-3.0); HEMATOCRIT 43.2 % (37.0-47.0); LYMPHOCYTES % (AUTO) 14.9 % (20.0-45.0); MEAN CORPUSCULAR VOLUME 100 FL (80-99); MONOCYTES % (AUTO) 7.3 % (1.0-10.0); NEUTROPHILS % (AUTO) 72.6 % (45.0-75.0); PLATELET COUNT 184 K/UL (150-450); RED BLOOD COUNT 4.33 M/UL (4.20-5.40); RED CELL DISTRIBUTION WIDTH 11.4 % (11.6-14.8); WHITE BLOOD COUNT 8.2 K/UL (4.8-10.8)
--- NOTE | 2019-04-24 10:18 | NUR ---
ED Nurse Note:pt. came from home with her mom, c/o abdominal pain, general weakness, not eating for 2 weeks, pt. has unsteady gait, A/Ox2 , placed on diesel scoop operator, VSS, blood and urine sent to labs, given IV fluids
[2019-04-24 10:25] LABS: ANION GAP 11 mmol/L (5-15); BLOOD UREA NITROGEN 4 mg/dL (7-18); CALCIUM 9.6 MG/DL (8.5-10.1); CARBON DIOXIDE 27 MMOL/L (21-32); CHLORIDE 104 MMOL/L (98-107); CREATININE 0.8 MG/DL (0.55-1.30); POTASSIUM 3.6 MMOL/L (3.5-5.1); SODIUM 142 MMOL/L (136-145)
[2019-04-24 10:33] LABS: APPEARANCE,URINE CLEAR; BILIRUBIN, URINE NEGATIVE (NEGATIVE); COLOR,URINE BROWN; GLUCOSE, URINE (UA) NEGATIVE (NEGATIVE); KETONES,URINE 2+ (NEGATIVE); LEUKOCYTE ESTERASE ,URINE 1+ (NEGATIVE); NITRITE,URINE NEGATIVE (NEGATIVE); PH,URINE 5 (4.5-8.0); PROTEIN,URINE 1+ (NEGATIVE); UROBILINOGEN,URINE NORMAL MG/DL (0.0-1.0)
[2019-04-24 10:39] LABS: ALANINE AMINOTRANSFERASE 14 U/L (12-78); ALBUMIN 3.9 G/DL (3.4-5.0); ALKALINE PHOSPHATASE 65 U/L (46-116); ASPARTATE AMINO TRANSFERASE 18 U/L (15-37); BILIRUBIN,TOTAL 0.5 MG/DL (0.2-1.0); CKMB 1.1 NG/ML (0.0-3.6); CREATINE KINASE 140 U/L (26-308); PHOSPHORUS 3.2 MG/DL (2.5-4.9)
--- NOTE | 2019-04-24 10:54 | NUR ---
ED Nurse Note:pt. had CT scan done
[2019-04-24] MEDS ORDERED: Morphine Sulfate 2mg/ml Inj(IV/IM USE ONLY) IVP PRN (11:30)
--- NOTE | 2019-04-24 12:06 | Diagnostic Imaging Report ---
Indications: Head pain, status post fall, frequent falling Technique: Spiral acquisitions obtained through the brain. Angled axial and coronal 5 x 5 mm slices were reconstructed. Total dose length product 1208 mGycm. CTDI vol(s) 60 mGy. Dose reduction achieved using automated exposure control Comparison: 05/05/2017 Findings: No acute intracranial hemorrhage or edema. No mass effect nor midline shift. Normal cole-white differentiation. Normal size ventricles and extra axial CSF spaces. Intact calvarium. The mastoids are clear. Visualized orbits are unremarkable. There is minimal ethmoid sinus disease and sphenoid sinus disease. No significant interim change Impression: Negative The CT scanner at [facility] is accredited by the [employer] and the scans are performed using protocols designed to limit radiation exposure to as low as reasonably achievable to attain images of sufficient resolution adequate for diagnostic evaluation.
[2019-04-24 12:09] VITALS: BP 133/72
--- NOTE | 2019-04-24 12:10 | NUR ---
ED Nurse Note: PT. WAS GIVEN A SANDWICH AND JUICE
--- NOTE | 2019-04-24 12:23 | NUR ---
ED Nurse Note: REPORT GIVEN TO BRUNA AVIAN
--- NOTE | 2019-04-24 12:32 | NUR ---
ED Nurse Note:pt. was taken up stairs ,condition stable
--- NOTE | 2019-04-24 12:40 | NUR ---
NURSE NOTES: Patient was admitted from ED by nir. AO x 2. Room air. No c/o of pain/distress at this moment. Stable vital sign with BP 132/73, NJ 92, SpO2 92% T 97.5. IV on L AC 20g intact and patent, with saline lock. Skin intact. Belongs were accounted for. Orientation on new unit given. Admission orders were put in by dr. Bartlett. Side rails x2. Bed in the lowest, locked, and alarm on. Call light within reach. Will continue the plan of care.
--- NOTE | 2019-04-24 14:03 | Consultation ---
History of Present Illness General Date patient seen: Apr 24, 2019 Chief Complaint: Abdominal Pain Present Illness HPI 43-year-old female history of mental retardation, anxiety unable to care for self presents with frequent falls, generalized failure to thrive per mother, has been ongoing for 2 months, has been worsening, patient is unable to give a history secondary to her mental retardation she does states I have abdominal pain. she is admitted for further management. Allergies: Coded Allergies: No Known Allergies (Unverified , 11/26/12) Medication History Scheduled Acetaminophen* (Tylenol Extra Strength*), 500 MG ORAL Q6H Clonazepam* (Klonopin*), 1 MG ORAL Q6H Mirtazapine (Mirtazapine), 45 MG ORAL BEDTIME, (Reported) Nitrofurantoin Monohyd/M-Cryst* (Macrobid 100 Mg*), 100 MG ORAL EVERY 12 HOURS Quetiapine Fumarate (Seroquel), 300 MG ORAL QHS, (Reported) Ranitidine Hcl* (Zantac*), 150 MG ORAL TWICE A DAY Risperidone (Risperidone), 1 MG ORAL BID, (Reported) Scheduled PRN Clonazepam (Clonazepam), 1 MG PO BID PRN for For Anxiety, (Reported) Miscellaneous Medications Unable to Obtain Medications (Unable To Obtain Meds), (Reported) Patient History Healthcare decision maker Resuscitation status Advanced Directive on File Past Medical/Surgical History Past Medical/Surgical History: (1) Frozen shoulder (2) Migraine (3) Anxiety (4) Schizophrenia (5) Development delay Review of Systems All Other Systems: negative except mentioned in HPI Physical Exam General Appearance: WD/WN Lines, tubes and drains: peripheral HEENT: normocephalic, atraumatic Neck: non-tender, normal alignment Respiratory/Chest: chest wall non-tender, lungs clear Cardiovascular/Chest: normal peripheral pulses, regular rhythm Abdomen: normal bowel sounds, non tender Genitourinary/Rectal: normal genital exam, heme negative stool Extremities: normal range of motion Skin Exam: normal pigmentation 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 Lymphatic: anterior cervical Last 24 Hour Vital Signs Date Time Temp Pulse Resp B/P (MAP) Pulse Ox O2 Delivery O2 Flow Rate FiO2 04/24/19 12:50 Room Air 04/24/19 12:23 98.0 82 24 133/72 99 Room Air 04/24/19 12:09 98.0 82 24 133/72 99 Room Air 04/24/19 10:14 97.9 115 18 108/65 95 Room Air 04/24/19 10:14 115 18 Room Air 04/24/19 09:53 97.9 122 18 108/65 (79) 95 Room Air Laboratory Tests Test 04/24/19 09:50 04/24/19 10:05 White Blood Count 8.2 K/UL (4.8-10.8) Red Blood Count 4.33 M/UL (4.20-5.40) Hemoglobin 14.0 G/DL (12.0-16.0) Hematocrit 43.2 % (37.0-47.0) Mean Corpuscular Volume 100 FL (80-99) H Mean Corpuscular Hemoglobin 32.3 PG (27.0-31.0) H Mean Corpuscular Hemoglobin Concent 32.3 G/DL (32.0-36.0) Red Cell Distribution Width 11.4 % (11.6-14.8) L Platelet Count 184 K/UL (150-450) Mean Platelet Volume 9.7 FL (6.5-10.1) Neutrophils (%) (Auto) 72.6 % (45.0-75.0) Lymphocytes (%) (Auto) 14.9 % (20.0-45.0) L Monocytes (%) (Auto) 7.3 % (1.0-10.0) Eosinophils (%) (Auto) 3.9 % (0.0-3.0) H Basophils (%) (Auto) 1.2 % (0.0-2.0) Prothrombin Time 10.7 SEC (9.30-11.50) Prothromb Time International Ratio 1.0 (0.9-1.1) Activated Partial Thromboplast Time 28 SEC (23-33) Sodium Level 142 MMOL/L (136-145) Potassium Level 3.6 MMOL/L (3.5-5.1) Chloride Level 104 MMOL/L (98-107) Carbon Dioxide Level 27 MMOL/L (21-32) Anion Gap 11 mmol/L (5-15) Blood Urea Nitrogen 4 mg/dL (7-18) L Creatinine 0.8 MG/DL (0.55-1.30) Estimat Glomerular Filtration Rate > 60 mL/min (>60) Glucose Level 131 MG/DL (74-106) H Lactic Acid Level 2.30 mmol/L (0.4-2.0) H Calcium Level 9.6 MG/DL (8.5-10.1) Phosphorus Level 3.2 MG/DL (2.5-4.9) Magnesium Level 1.7 MG/DL (1.8-2.4) L Total Bilirubin 0.5 MG/DL (0.2-1.0) Aspartate Amino Transf (AST/SGOT) 18 U/L (15-37) Alanine Aminotransferase (ALT/SGPT) 14 U/L (12-78) Alkaline Phosphatase 65 U/L (46-116) Total Creatine Kinase 140 U/L (26-308) Creatine Kinase MB 1.1 NG/ML (0.0-3.6) Creatine Kinase MB Relative Index 0.7 Troponin I 0.000 ng/mL (0.000-0.056) Pro-B-Type Natriuretic Peptide 28 pg/mL (0-125) Total Protein 7.8 G/DL (6.4-8.2) Albumin 3.9 G/DL (3.4-5.0) Globulin 3.9 g/dL Albumin/Globulin Ratio 1.0 (1.0-2.7) Lipase 132 U/L (73-393) Thyroid Stimulating Hormone (TSH) 1.158 uiU/mL (0.358-3.740) Free Thyroxine 1.15 NG/DL (0.76-1.46) Free Triiodothyronine 2.5 pg/mL (2.3-4.2) Urine Color Brown Urine Appearance Clear Urine pH 5 (4.5-8.0) Urine Specific [place] 1.025 (1.005-1.035) Urine Protein 1+ (NEGATIVE) H Urine Glucose (UA) Negative (NEGATIVE) Urine Ketones 2+ (NEGATIVE) H Urine Blood Negative (NEGATIVE) Urine Nitrite Negative (NEGATIVE) Urine Bilirubin Negative (NEGATIVE) Urine Urobilinogen Normal MG/DL (0.0-1.0) Urine Leukocyte Esterase 1+ (NEGATIVE) H Urine RBC 0-2 /HPF (0 - 2) Urine WBC 0-2 /HPF (0 - 2) Urine Squamous Epithelial Cells Occasional /LPF Urine Bacteria Occasional /HPF (NONE) Urine Mucus Few /LPF (NONE/OCC) H Urine HCG, Qualitative Negative (NEGATIVE) Height (Feet): 5 Height (Inches): 0.00 Weight (Pounds): 130 Medications Current Medications Medications (Trade) Dose Ordered Sig/Moo Route PRN Reason Start Time Stop Time Status Last Admin Dose Admin Acetaminophen (Tylenol) 650 mg Q4H PRN ORAL T>100.5 04/24/19 11:30 05/24/19 11:29 Dextrose (Dextrose 50%) 25 ml Q30M PRN IV Hypoglycemia 04/24/19 11:30 05/24/19 11:29 Dextrose (Dextrose 50%) 50 ml Q30M PRN IV Hypoglycemia 04/24/19 11:30 05/24/19 11:29 Lorazepam (Ativan 2mg/ml 1ml) 0.5 mg Q4H PRN IV For Anxiety 04/24/19 11:30 05/01/19 11:29 Mirtazapine (Remeron) 45 mg BEDTIME ORAL 04/24/19 21:00 05/24/19 20:59 Morphine Sulfate (Morphine Sulfate) 1 mg Q4H PRN IVP PAIN 4-10 04/24/19 11:30 05/01/19 11:29 Ondansetron HCl (Zofran) 4 mg Q6H PRN IVP Nausea & Vomiting 04/24/19 11:30 05/24/19 11:29 Polyethylene Glycol (Miralax) 17 gm HSPRN PRN ORAL Constipation 04/24/19 21:00 05/24/19 20:59 Quetiapine Fumarate (SEROquel) 300 mg BEDTIME ORAL 04/24/19 21:00 05/24/19 20:59 Risperidone (RisperDAL) 1 mg BID ORAL 04/24/19 18:00 05/24/19 17:59 Zolpidem Tartrate (Ambien) 5 mg HSPRN PRN ORAL Insomnia 04/24/19 21:00 05/01/19 20:59 Assessment/Plan Problem List: (1) Failure to thrive in adult ICD Codes: R62.7 - Adult failure to thrive SNOMED: 451704055 (2) Frequent falls ICD Codes: R29.6 - Repeated falls SNOMED: 021678799 (3) Schizophrenia ICD Codes: F20.9 - Schizophrenia, unspecified SNOMED: 80990181 (4) Development delay ICD Codes: R62.50 - Unspecified lack of expected normal physiological development in childhood SNOMED: 163800171 Assessment/Plan: pt/ot evaluation social service evaluation dvt prophylaxis. Peterson Bartlett MD Apr 24, 2019 14:03
--- NOTE | 2019-04-24 14:48 | Diagnostic Imaging Report ---
Indication: Cough Technique: One view of the chest Comparison: 12/30/2018 Findings: Lungs and pleural spaces are clear. Heart size is normal. Current exam demonstrates better aeration with resolution of previously demonstrated basilar compressive atelectatic changes Impression: No acute process
[2019-04-24 16:00] VITALS: BP 110/78
--- NOTE | 2019-04-24 18:31 | History & Physical ---
History and Physical History & Physicial Dictated for Int Med-DR Hickey no. [id number] Kingston Pace MD Apr 24, 2019 18:31
--- NOTE | 2019-04-24 19:18 | NUR ---
HAND-OFF: Report given to BRUNA Mcelroy.
--- NOTE | 2019-04-24 19:53 | NUR ---
NURSE NOTES: Received patient in bed, awake, alert, oriented x2/3, noted with developmental delay, IV site is clean dry and intact. Patient able to ambulate with unsteady gate. Call light is within reach, bed is locked, lowered, alarm is on, will continue to monitor for comfort and safety.
[2019-04-24 20:00] VITALS: BP 123/78
[2019-04-24] MEDS ORDERED: Miralax 17gm pkt ORAL PRN (21:00)
[2019-04-24] MEDS: Zolpidem 5mg tab ORAL PRN (21:01)
[2019-04-25] VITALS: BP 113/71
--- NOTE | 2019-04-25 00:45 | History and Physical Report ---
DATE OF ADMISSION: 04/24/2019 CHIEF COMPLAINT: The patient is a 43-year-old female who presents with a chief complaint of generalized weakness and decreased oral intake. HISTORY OF PRESENT ILLNESS: The patient was admitted to [facility] on April 13, 2019 for outpatient endoscopy. Diagnosis was gastritis at that time. The patient states that she has had decreased appetite since her endoscopy. The patient states that she has pain when eating. The patient presented to [facility] emergency room. The patient was admitted with frequent falls and failure to thrive. PAST MEDICAL HISTORY: Significant for: 1. Schizophrenia. 2. Gastritis as above. 3. Developmental delay. PAST SURGICAL HISTORY: Significant for endoscopy on April 13, 2019. CURRENT MEDICATIONS: 1. Klonopin 1 mg p.o. twice daily p.r.n. 2. Mirtazapine 45 mg p.o. at bedtime. 3. Seroquel 300 mg p.o. at bedtime. 4. Zantac 150 mg p.o. twice daily. 5. Risperdal 1 mg p.o. twice daily. ALLERGIES: No known drug allergies. SOCIAL HISTORY: The patient is single and lives with her mother. The patient denies tobacco or alcohol use. PHYSICAL EXAMINATION: VITAL SIGNS: Temperature 97.9, respirations 18, pulse 122, and blood pressure 108/65. GENERAL: The patient is a thin-appearing female, in no apparent distress. HEENT: Eyes, pupils are equal and responsive to light and accommodation. Extraocular movements are intact. NECK: Supple without lymphadenopathy. CHEST: Lungs are clear to auscultation bilaterally without wheezes or rales. CARDIOVASCULAR: Regular rate. S1-S2 are normal without murmurs, rubs, or gallops. ABDOMEN: Soft, nontender, and nondistended. Positive bowel sounds. No evidence of hepatosplenomegaly. Currently, no rebound or guarding noted. EXTREMITIES: Negative for clubbing, cyanosis, or edema. RECTAL: Not performed. GENITAL: Not performed. NEUROLOGIC: Cranial nerves II through XII are grossly intact without focal deficits. Motor strength is 5/5 bilaterally. Deep tendon reflexes are 2+ plantar. LABORATORY STUDIES: WBC 8.2, hemoglobin 14.3, hematocrit 43.2, and platelets 184,000. Sodium 142, potassium 3.6, chloride 104, CO2 27, BUN 4, creatinine 0.8, and glucose 131. A CT of the brain was reported as no acute disease. ASSESSMENT: This is a 43-year-old female with: 1. Failure to thrive. 2. Decreased oral intake. 3. Gastritis. 4. Epigastric pain. 5. Schizophrenia. 6. Developmental delay TREATMENT: 1. Failure to thrive/decreased oral intake/gastritis/epigastric pain. A Gastroenterology consultation has been obtained with Dr. Anjel Schmidt. The patient has been started empirically on Protonix. We will follow recommendations of Gastroenterology. A calorie count has been instituted. 2. Schizophrenia. Continue Risperdal and mirtazapine as above. Continue clonazepam as above. 3. Developmental delay. Kingston Pace M.D. DR: COLETTE JOB#: [id number] CC:
[2019-04-25 04:00] VITALS: BP 121/71
[2019-04-25 06:15] LABS: BASOPHILS % (AUTO) 1.8 % (0.0-2.0); EOSINOPHILS % (AUTO) 7.7 % (0.0-3.0); LYMPHOCYTES % (AUTO) 43.9 % (20.0-45.0); MEAN CORPUSCULAR VOLUME 100 FL (80-99); MONOCYTES % (AUTO) 9.8 % (1.0-10.0); NEUTROPHILS % (AUTO) 36.8 % (45.0-75.0); PLATELET COUNT 172 K/UL (150-450); RED CELL DISTRIBUTION WIDTH 12.1 % (11.6-14.8); WHITE BLOOD COUNT 5.8 K/UL (4.8-10.8)
[2019-04-25 07:03] LABS: ALANINE AMINOTRANSFERASE 15 U/L (12-78); ALBUMIN 3.2 G/DL (3.4-5.0); ALBUMIN/GLOBULIN RATIO 0.9 (1.0-2.7); ALKALINE PHOSPHATASE 51 U/L (46-116); ANION GAP 8 mmol/L (5-15); BILIRUBIN,TOTAL 0.4 MG/DL (0.2-1.0); BLOOD UREA NITROGEN 3 mg/dL (7-18); CALCIUM 9.2 MG/DL (8.5-10.1); CARBON DIOXIDE 29 MMOL/L (21-32); CHLORIDE 107 MMOL/L (98-107); CHOLESTEROL 125 MG/DL (< 200); CREATININE 0.6 MG/DL (0.55-1.30); HDL CHOLESTEROL 58 MG/DL (40-60); SODIUM 144 MMOL/L (136-145); TRIGLYCERIDES 36 MG/DL (30-150)
--- NOTE | 2019-04-25 07:27 | NUR ---
HAND-OFF: Report given to Arian MCFARLAND.
--- NOTE | 2019-04-25 07:42 | NUR ---
NURSE NOTES: NURSE NOTES: Received pt in bed, AAO x 2. Room air. No c/o of pain/distress. IV on L AC 20g intact and patent, with saline lock. Side rails x 3. Bed in the lowest, locked, and alarm on. Call light within reach. Will continue to monitor
[2019-04-25 07:49] LABS: ASPARTATE AMINO TRANSFERASE 16 U/L (15-37)
[2019-04-25 08:00] VITALS: BP 127/79
--- NOTE | 2019-04-25 10:44 | NUR ---
REFERRED FOR SWALLOW EVAL BY DR. BURGOS (PRIMARY VOSOGHI/NIKA/MADAY) SEE FULL EVAL IN ST CARE ACTIVITY SECTION. DYSPHAGIA RISK FACTORS FOR THIS 43 Y.O. AA FEMALE: ACUTE ISSUES: POOR INTAKE FTT, DIZZY IN MORNINGS AND FELL (HAS FREQUENT FALLS), PAIN WITH EATING (EPIGASTRIC PAIN), GENERAL WEAKNESS. CT HEAD NEGATIVE (BUT HAS SOME MIN ETHMOID AND SPHENOID SINUS DZ) AND LUNGS ARE CLEAR RELEVANT MEDS: RISPERDONE AND REMERON/MIRTAZAPINE ANTI-PSYCHOTIC, ATIVAN LORAZEPAM PRN, AND MORPHINE. GERD (ZANTAC) H/O GERD, GASTRITIS, ANXIETY AND SCHIZOPHRENIA, DEVELOPMENTAL DELAY, MULTIPLE C ER VISITS LIVES WITH HER MOTHER IN AN APARTMENT NO POLST/AD REGARDING TF IF NEEDS PER PT, DENIES SWALLOWING PROBLEMS BUT ADMITS SHE NEEDS TO CUT HER FOOD INTO SMALLER PIECES (AND WANTS TO DO THIS HERSELF W/O HELP). WAS ON FULL LIQUID DIET INITIALLY BUT NOW ON REGULAR TEXTURE DIET AND THIN LIQUIDS NOW WITH 50% INTAKE. INTAKE LIKELY SLOWER. DOES NOT WANT ANY DIET DOWNGRADES (LIKE MECH SOFT CHOPPED). PER BRUNA DODD, NO ASP NOTED WITH MEDIUM PILLS AND WATER. ALERT AND ABLE TO EXPRESS/UNDERSTAND BASIC NEEDS IN SENTENCES. SLOWER RESPONSE AND PROCESSING RATE AND HAS A FLAT AFFECT. IS ORIENTED TO HOSP NAME AND MONTH AND YEAR BUT DOESN'T KNOW WHY SHE IS HERE (LIKELY DUE TO PREMORBID DEVELOPMENTAL DELAY OR LIKELY INTELLECTUAL DISABILITY. SHE WANTS TO GO HOME SOON. INITIAL IMPRESSIONS: MILD ORAL PREP AND OROPHARYNGEAL DYSPHAGIA WITH INCREASED OVERALL TRANSIT TIMES MOSTLY WITH PUREED AND MASTICATED SOLIDS. MILD-MOD DECREASE IN TONGUE SPEED IN ALL DIRECTIONS AND DIFFICULTY COMPLETING TONGUE STRENGTHENING TESTING. FAIR ROM EXCEPT DID NOT ELEVATE/DEPRESS TONGUE TO COMMAND. SOME SALIVA NOTED ON RIGHT SIDE OF MOUTH. GROSSLY FUNCTIONAL LIPS (MILD DECREASE IN RETRACTION BILATERALLY) TENDS TO HAVE A FLAT AFFECT AND BREATHES WITH HER MOUTH OPEN. GROSSLY FUNCTIONAL SWALLOW WITH PUREED TSP BUT TAKES A FEW SECONDS TO SWALLOW, GIVEN THIN LIQUIDS, NEEDS TO SWALLOW SLOWLY, BUT NO ORAL RESIDUE NOR OVERT ASPIRATION. GIVEN MASTICATED SOLID (1/2 CRACKER) VERY SLOW CHEWING 15 SECONDS WITH MILD RESIDUE MIDDLE OF TONGUE, CLEARS WITH LIQUID WASH. NO OVERT ASPIRATION MAY HAVE SILENT ASPIRATION RISK (NEURO DX AT , HAS HAD FALLS BUT CT HEAD SCAN NEGATIVE) RECOMMENDATIONS: CONSIDER CONTINUING WITH CURRENT REGULAR TEXTURE DIET WITH THIN LIQUIDS WITH POSTED ASPIRATION PRECAUTIONS AND ASSIST AND SUPERVISION WITH MEALS. CONSIDER ANTI-REFLUX DIET AND OTHER REC PER RD. SEND HIGH ALAN SUP PER RD (CHOCOLATE) AND FOODS OF PREFERENCE (LASAGNA AND PASTAS). STILL ON CALORIE COUNT. SHE SAID SHE DIDN'T WANT TO EAT MUCH SINCE SHE GOT SIT IN A HOSPITAL - DID NOT SAY WHICH HOSPITAL. SHE WAS ENCOURAGED TO EAT/DRINK MORE OF MEAL OR AT LEAST TAKE HIGH ALAN SUP. SHE SAID HER APPETITE WAS OK IF SHE LIKED THE FOOD. C SHE NEEDS STAFF COUNSELING ABOUT WHY SHE SHOULD EAT MORE. COMPLETE MOD BARIUM SWALLOW STUDY IP OR OP IF DC TO FURTHER ASSESS SWALLOW, DETERMINE SILENT ASP RISK/ETIOLOGY, AND ATTEMPT TRIAL TX TECHNIQUES. SKILLED DYSPHAGIA MANAGEMENT AND TX AND COG-COM EVAL/TX FOR COMMUNICATION/MEMORY TIPS. EDUCATED/TRAINED STAFF IN POSTED PRECAUTIONS LEFT MESSAGE WITH DR BURGOS
--- NOTE | 2019-04-25 10:54 | NUR ---
Social Service Note SW is unable to reach patient's mother Valorie Torres [phone]. Voice mail not set up to leave a message. Patient has had 17 ER visits at [facility] since July 2018. ZANE located and left a message for patient's welfare case worker at [facility] [place] [phone]. Patient indicates she wants to return home. Will continue to call patient's mother and follow up with [facility].
[2019-04-25 12:00] VITALS: BP 127/79
--- NOTE | 2019-04-25 12:00 | Internal Med Progress Note ---
Subjective Date of Service: Apr 25, 2019 Physician Name Kingston Pace Attending Physician Zaheer Hickey MD Current Medications Medications (Trade) Dose Ordered Sig/Moo Route PRN Reason Start Time Stop Time Status Last Admin Dose Admin Acetaminophen (Tylenol) 650 mg Q4H PRN ORAL T>100.5 04/24/19 11:30 05/24/19 11:29 Dextrose (Dextrose 50%) 25 ml Q30M PRN IV Hypoglycemia 04/24/19 11:30 05/24/19 11:29 Dextrose (Dextrose 50%) 50 ml Q30M PRN IV Hypoglycemia 04/24/19 11:30 05/24/19 11:29 Lorazepam (Ativan 2mg/ml 1ml) 0.5 mg Q4H PRN IV For Anxiety 04/24/19 11:30 05/01/19 11:29 Mirtazapine (Remeron) 45 mg BEDTIME ORAL 04/24/19 21:00 05/24/19 20:59 04/24/19 21:01 Morphine Sulfate (Morphine Sulfate) 1 mg Q4H PRN IVP PAIN 4-10 04/24/19 11:30 05/01/19 11:29 Ondansetron HCl (Zofran) 4 mg Q6H PRN IVP Nausea & Vomiting 04/24/19 11:30 05/24/19 11:29 Polyethylene Glycol (Miralax) 17 gm HSPRN PRN ORAL Constipation 04/24/19 21:00 05/24/19 20:59 Quetiapine Fumarate (SEROquel) 300 mg BEDTIME ORAL 04/24/19 21:00 05/24/19 20:59 04/24/19 21:01 Risperidone (RisperDAL) 1 mg BID ORAL 04/24/19 18:00 05/24/19 17:59 04/25/19 08:39 Zolpidem Tartrate (Ambien) 5 mg HSPRN PRN ORAL Insomnia 04/24/19 21:00 05/01/19 20:59 04/24/19 21:01 Allergies: Coded Allergies: No Known Allergies (Unverified , 11/26/12) ROS Limited/Unobtainable: No Constitutional: Reports: no symptoms HEENT: Reports: no symptoms Cardiovascular: Reports: no symptoms Respiratory: Reports: no symptoms Gastrointestinal/Abdominal: Reports: no symptoms Genitourinary: Reports: no symptoms Neurologic/Psychiatric: Reports: no symptoms Subjective 43 YO F admitted with frequent falls and failure to thrive. Cover for Int Chuck- Dr Hickey Objective Last Vital Signs Date Time Temp Pulse Resp B/P (MAP) Pulse Ox O2 Delivery O2 Flow Rate FiO2 04/25/19 09:00 Room Air 04/25/19 08:00 97.0 90 21 127/79 (95) 98 General Appearance: WD/WN, no apparent distress, alert EENT: PERRL/EOMI, normal ENT inspection Neck: non-tender, normal alignment, supple, normal inspection Cardiovascular: normal peripheral pulses, normal rate, regular rhythm, no gallop/murmur, no JVD Respiratory/Chest: chest wall non-tender, lungs clear, normal breath sounds, no respiratory distress, no accessory muscle use Abdomen: normal bowel sounds, non tender, soft, no organomegaly, no mass Extremities: normal range of motion 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, no motor/sensory deficits Skin: normal pigmentation, warm/dry Laboratory Tests Test 04/25/19 05:16 White Blood Count 5.8 K/UL (4.8-10.8) Red Blood Count 3.70 M/UL (4.20-5.40) L Hemoglobin 12.0 G/DL (12.0-16.0) Hematocrit 37.0 % (37.0-47.0) Mean Corpuscular Volume 100 FL (80-99) H Mean Corpuscular Hemoglobin 32.5 PG (27.0-31.0) H Mean Corpuscular Hemoglobin Concent 32.6 G/DL (32.0-36.0) Red Cell Distribution Width 12.1 % (11.6-14.8) Platelet Count 172 K/UL (150-450) Mean Platelet Volume 9.3 FL (6.5-10.1) Neutrophils (%) (Auto) 36.8 % (45.0-75.0) L Lymphocytes (%) (Auto) 43.9 % (20.0-45.0) Monocytes (%) (Auto) 9.8 % (1.0-10.0) Eosinophils (%) (Auto) 7.7 % (0.0-3.0) H Basophils (%) (Auto) 1.8 % (0.0-2.0) Sodium Level 144 MMOL/L (136-145) Potassium Level 3.0 MMOL/L (3.5-5.1) L Chloride Level 107 MMOL/L (98-107) Carbon Dioxide Level 29 MMOL/L (21-32) Anion Gap 8 mmol/L (5-15) Blood Urea Nitrogen 3 mg/dL (7-18) L Creatinine 0.6 MG/DL (0.55-1.30) Estimat Glomerular Filtration Rate > 60 mL/min (>60) Glucose Level 95 MG/DL (74-106) Calcium Level 9.2 MG/DL (8.5-10.1) Total Bilirubin 0.4 MG/DL (0.2-1.0) Aspartate Amino Transf (AST/SGOT) 16 U/L (15-37) Alanine Aminotransferase (ALT/SGPT) 15 U/L (12-78) Alkaline Phosphatase 51 U/L (46-116) Total Protein 6.6 G/DL (6.4-8.2) Albumin 3.2 G/DL (3.4-5.0) L Globulin 3.4 g/dL Albumin/Globulin Ratio 0.9 (1.0-2.7) L Triglycerides Level 36 MG/DL (30-150) Cholesterol Level 125 MG/DL (< 200) LDL Cholesterol 61 mg/dL (<100) HDL Cholesterol 58 MG/DL (40-60) Cholesterol/HDL Ratio 2.2 (3.3-4.4) L Thyroid Stimulating Hormone (TSH) 2.510 uiU/mL (0.358-3.740) Intake and Output 04/24/19 04/25/19 19:00 07:00 Intake Total 480 ml Balance 480 ml Intake Oral 480 ml # Voids 1 Assessment/Plan Problem List: (1) Frequent falls (2) Decreased appetite Assessment & Plan: Due to epigastric pain. SP EGD 04/13/19. Await GI consult (3) Epigastric pain (4) Schizophrenia Assessment & Plan: Await psych eval (5) Failure to thrive in adult Assessment & Plan: Calorie count in progress (6) Gastritis Assessment & Plan: Await GI consult (7) Development delay Assessment/Plan Discharge planning Kingston Pace MD Apr 25, 2019 12:00
--- NOTE | 2019-04-25 12:34 | GI Initial Consult Note ---
History of Present Illness General Date patient seen: Apr 25, 2019 Time patient seen: 12:27 Reason for Hospitalization: Abdominal Pain Referring physician: ALONDRA MAHER Reason for Consultation: Failure to thrive Present Illness HPI 43-year-old female history of mental retardation, anxiety unable to care for self presents with frequent falls, generalized failure to thrive per mother, has been ongoing for 2 months, has been worsening, patient is unable to give a history secondary to her mental retardation she does states I have abdominal pain, she has been scoped in the past with negative GI scope, unknown aggravating relieving factors severity is moderate, constant, characterization is generalized weakness, no fever no chills per mom. GI consulted for reported failure to thrive. ROS limited, patient history of mental retardation. Patient seen, awake alert currently eating lunch. No noted distress. No noted active signs symptoms of any nausea or vomiting. She reported that the patient had a recent decline in p.o. intake. Patient had a recent history of endoscopy on April 13, 2019 noted with gastritis. Pathology was negative for any metaplasia or dysplasia or melena malignancy. Also negative for Helicobacter. Speech therapy evaluation reviewed noted that the patient had mild oral prep and oral for continued dysphasia with decreased overall transit times mostly with masticate solids. Was recommended to continue regular diet texture diet with thin liquids with posted aspiration precautions and assisted supervision with meals. Home Meds Active Scripts Acetaminophen* (TYLENOL EXTRA STRENGTH*) 500 Mg Tablet, 500 MG ORAL Q6H, #20 TAB 0 Refills Prov:Michelle Shelton 01/25/19 Ranitidine Hcl* (ZANTAC*) 150 Mg Tablet, 150 MG ORAL TWICE A DAY, #30 TAB Prov:Wilder Grimes MD 01/09/19 Nitrofurantoin Monohyd/M-Cryst* (MACROBID 100 MG*) 100 Mg Capsule, 100 MG ORAL EVERY 12 HOURS for 7 Days, #14 CAP Prov:Marcela Dumont 12/30/18 Clonazepam* (KLONOPIN*) 1 Mg Tablet, 1 MG ORAL Q6H, #4 TAB 0 Refills Prov:Kike Rosales MD 11/21/18 Reported Medications Unable to Obtain Medications (UNABLE TO OBTAIN MEDS) 1 Ea Ea 04/24/19 Quetiapine Fumarate (SEROQUEL) 300 Mg Tablet, 300 MG ORAL QHS, TAB 11/20/18 Clonazepam (Clonazepam) 1 Mg Tablet, 1 MG PO BID PRN for For Anxiety, TAB 11/20/18 Risperidone (RISPERIDONE) 1 Mg Tablet, 1 MG ORAL BID, TAB 0 Refills 11/20/18 Mirtazapine (MIRTAZAPINE) 45 Mg Tab.rapdis, 45 MG ORAL BEDTIME, TAB 06/10/17 Med list reviewed/reconciled: Yes Allergies: Coded Allergies: No Known Allergies (Unverified , 11/26/12) Patient History PMH Narrative Limited by: medical condition - Mental retardation Past Medical History: see triage record Reviewed Nursing Documentation: PMH: Agreed; PSxH: Agreed Nursing Documentation-PMH Past Medical History: No History, Except For Hx Cardiac Problems: No Hx Pacemaker: No Hx Asthma: No Hx COPD: No Hx Diabetes: No Hx Cancer: No Hx Gastrointestinal Problems: Yes - Gastritis Hx Dialysis: No Hx Neurological Problems: Yes - Developmental delay Hx Cerebrovascular Accident: No Hx Seizures: No Social History: Denies: smoking, alcohol use, drug use, other Review of Systems All Other Systems: negative except mentioned in HPI Physical Exam Vital Signs Date Time Temp Pulse Resp B/P (MAP) Pulse Ox O2 Delivery O2 Flow Rate FiO2 04/24/19 09:53 97.9 122 18 108/65 (79) 95 Room Air Sp02 EP Interpretation: reviewed, normal Labs Laboratory Tests Test 04/25/19 05:16 White Blood Count 5.8 K/UL (4.8-10.8) Red Blood Count 3.70 M/UL (4.20-5.40) L Hemoglobin 12.0 G/DL (12.0-16.0) Hematocrit 37.0 % (37.0-47.0) Mean Corpuscular Volume 100 FL (80-99) H Mean Corpuscular Hemoglobin 32.5 PG (27.0-31.0) H Mean Corpuscular Hemoglobin Concent 32.6 G/DL (32.0-36.0) Red Cell Distribution Width 12.1 % (11.6-14.8) Platelet Count 172 K/UL (150-450) Mean Platelet Volume 9.3 FL (6.5-10.1) Neutrophils (%) (Auto) 36.8 % (45.0-75.0) L Lymphocytes (%) (Auto) 43.9 % (20.0-45.0) Monocytes (%) (Auto) 9.8 % (1.0-10.0) Eosinophils (%) (Auto) 7.7 % (0.0-3.0) H Basophils (%) (Auto) 1.8 % (0.0-2.0) Sodium Level 144 MMOL/L (136-145) Potassium Level 3.0 MMOL/L (3.5-5.1) L Chloride Level 107 MMOL/L (98-107) Carbon Dioxide Level 29 MMOL/L (21-32) Anion Gap 8 mmol/L (5-15) Blood Urea Nitrogen 3 mg/dL (7-18) L Creatinine 0.6 MG/DL (0.55-1.30) Estimat Glomerular Filtration Rate > 60 mL/min (>60) Glucose Level 95 MG/DL (74-106) Calcium Level 9.2 MG/DL (8.5-10.1) Total Bilirubin 0.4 MG/DL (0.2-1.0) Aspartate Amino Transf (AST/SGOT) 16 U/L (15-37) Alanine Aminotransferase (ALT/SGPT) 15 U/L (12-78) Alkaline Phosphatase 51 U/L (46-116) Total Protein 6.6 G/DL (6.4-8.2) Albumin 3.2 G/DL (3.4-5.0) L Globulin 3.4 g/dL Albumin/Globulin Ratio 0.9 (1.0-2.7) L Triglycerides Level 36 MG/DL (30-150) Cholesterol Level 125 MG/DL (< 200) LDL Cholesterol 61 mg/dL (<100) HDL Cholesterol 58 MG/DL (40-60) Cholesterol/HDL Ratio 2.2 (3.3-4.4) L Thyroid Stimulating Hormone (TSH) 2.510 uiU/mL (0.358-3.740) General Appearance: well appearing, no apparent distress, alert Head: normocephalic EENT: PERRL/EOMI, normal ENT inspection Neck: supple Respiratory: normal breath sounds, no respiratory distress Cardiovascular: normal rate Gastrointestinal: normal inspection, non tender, soft, normal bowel sounds, non -distended Rectal: deferred Genitourinary: no CVA tenderness Musculoskeletal: normal inspection, back normal Neurologic: normal inspection, alert, oriented x3, responsive Psychiatric: normal inspection, judgement/insight normal, memory normal Skin: normal inspection, normal color, no rash, warm/dry, palpation normal, well hydrated Lymphatic: normal inspection, no adenopathy Current Medications Current Medications Medications (Trade) Dose Ordered Sig/Moo Route PRN Reason Start Time Stop Time Status Last Admin Dose Admin Acetaminophen (Tylenol) 650 mg Q4H PRN ORAL T>100.5 04/24/19 11:30 05/24/19 11:29 Dextrose (Dextrose 50%) 25 ml Q30M PRN IV Hypoglycemia 04/24/19 11:30 05/24/19 11:29 Dextrose (Dextrose 50%) 50 ml Q30M PRN IV Hypoglycemia 04/24/19 11:30 05/24/19 11:29 Lorazepam (Ativan 2mg/ml 1ml) 0.5 mg Q4H PRN IV For Anxiety 04/24/19 11:30 05/01/19 11:29 Mirtazapine (Remeron) 45 mg BEDTIME ORAL 04/24/19 21:00 05/24/19 20:59 04/24/19 21:01 Morphine Sulfate (Morphine Sulfate) 1 mg Q4H PRN IVP PAIN 4-10 04/24/19 11:30 05/01/19 11:29 Ondansetron HCl (Zofran) 4 mg Q6H PRN IVP Nausea & Vomiting 04/24/19 11:30 05/24/19 11:29 Polyethylene Glycol (Miralax) 17 gm HSPRN PRN ORAL Constipation 04/24/19 21:00 05/24/19 20:59 Potassium Chloride (K-Dur) 40 meq ONCE ORAL 04/25/19 12:00 04/25/19 13:00 Quetiapine Fumarate (SEROquel) 300 mg BEDTIME ORAL 04/24/19 21:00 05/24/19 20:59 04/24/19 21:01 Risperidone (RisperDAL) 1 mg BID ORAL 04/24/19 18:00 05/24/19 17:59 04/25/19 08:39 Zolpidem Tartrate (Ambien) 5 mg HSPRN PRN ORAL Insomnia 04/24/19 21:00 05/01/19 20:59 04/24/19 21:01 GI: Plan Problems: (1) Failure to thrive in adult (2) Decreased appetite (3) Epigastric pain (4) Schizophrenia (5) Gastritis (6) Dehydration Plan Speech therapy notes reviewed. We will consider PEG placement pending work-up. Follow-up calorie count to see if nutritional needs are met Possible video swallow study test for any risk of silent aspiration We will consider Marinol as appetite stimulant Reglan as needed for any GI motility PPI Zofran as needed Discussed with Dr. Schmidt. Thank you for this patient referral, we will follow. The patient was seen and examined at bedside and all new and available data was reviewed in the patients chart. I agree with the above findings, impression and plan. (Patient seen earlier today. Signature stamp does not reflect patient encounter time.). - MD Michelle [facility] Apr 25, 2019 12:34
--- NOTE | 2019-04-25 12:55 | Pulmonology Progress Note ---
Assessment/Plan Problems: (1) Failure to thrive in adult (2) Frequent falls (3) Schizophrenia (4) Development delay Assessment/Plan doing better no new complains pt/ot evaluation social service evaluation dvt prophylaxis. Subjective Constitutional: Reports: no symptoms Respiratory: Reports: no symptoms Allergies: Coded Allergies: No Known Allergies (Unverified , 11/26/12) Objective Last 24 Hour Vital Signs Date Time Temp Pulse Resp B/P (MAP) Pulse Ox O2 Delivery O2 Flow Rate FiO2 04/25/19 09:00 Room Air 04/25/19 08:00 97.0 90 21 127/79 (95) 98 04/25/19 04:00 97.9 88 20 121/71 (88) 97 04/25/19 00:00 97.7 93 20 113/71 (85) 97 04/24/19 21:00 Room Air 04/24/19 20:00 97.0 103 18 123/78 (93) 98 04/24/19 16:00 97.7 102 19 110/78 (89) 96 Intake and Output 04/24/19 04/25/19 19:00 07:00 Intake Total 480 ml Balance 480 ml Intake Oral 480 ml # Voids 1 General Appearance: WD/WN HEENT: normocephalic, anicteric Respiratory/Chest: chest wall non-tender, no respiratory distress Breasts: no masses Cardiovascular: normal peripheral pulses Abdomen: normal bowel sounds, no organomegaly Genitourinary: normal external genitalia Extremities: no clubbing Skin: no rash Laboratory Tests 04/25/19 05:16: White Blood Count 5.8, Red Blood Count 3.70L, Hemoglobin 12.0, Hematocrit 37.0, Mean Corpuscular Volume 100H, Mean Corpuscular Hemoglobin 32.5H, Mean Corpuscular Hemoglobin Concent 32.6, Red Cell Distribution Width 12.1, Platelet Count 172, Mean Platelet Volume 9.3, Neutrophils (%) (Auto) 36.8L, Lymphocytes ( %) (Auto) 43.9, Monocytes (%) (Auto) 9.8, Eosinophils (%) (Auto) 7.7H, Basophils (%) (Auto) 1.8, Sodium Level 144, Potassium Level 3.0L, Chloride Level 107, Carbon Dioxide Level 29, Anion Gap 8, Blood Urea Nitrogen 3L, Creatinine 0.6, Estimat Glomerular Filtration Rate > 60, Glucose Level 95, Calcium Level 9.2, Total Bilirubin 0.4, Aspartate Amino Transf (AST/SGOT) 16, Alanine Aminotransferase (ALT/SGPT) 15, Alkaline Phosphatase 51, Total Protein 6.6, Albumin 3.2L, Globulin 3.4, Albumin/Globulin Ratio 0.9L, Triglycerides Level 36, Cholesterol Level 125, LDL Cholesterol 61, HDL Cholesterol 58, Cholesterol/HDL Ratio 2.2L, Thyroid Stimulating Hormone (TSH) 2.510 Current Medications Medications (Trade) Dose Ordered Sig/Moo Route PRN Reason Start Time Stop Time Status Last Admin Dose Admin Acetaminophen (Tylenol) 650 mg Q4H PRN ORAL T>100.5 04/24/19 11:30 05/24/19 11:29 Dextrose (Dextrose 50%) 25 ml Q30M PRN IV Hypoglycemia 04/24/19 11:30 05/24/19 11:29 Dextrose (Dextrose 50%) 50 ml Q30M PRN IV Hypoglycemia 04/24/19 11:30 05/24/19 11:29 Lorazepam (Ativan 2mg/ml 1ml) 0.5 mg Q4H PRN IV For Anxiety 04/24/19 11:30 05/01/19 11:29 Mirtazapine (Remeron) 45 mg BEDTIME ORAL 04/24/19 21:00 05/24/19 20:59 04/24/19 21:01 Morphine Sulfate (Morphine Sulfate) 1 mg Q4H PRN IVP PAIN 4-10 04/24/19 11:30 05/01/19 11:29 Ondansetron HCl (Zofran) 4 mg Q6H PRN IVP Nausea & Vomiting 04/24/19 11:30 05/24/19 11:29 Polyethylene Glycol (Miralax) 17 gm HSPRN PRN ORAL Constipation 04/24/19 21:00 05/24/19 20:59 Potassium Chloride (K-Dur) 40 meq ONCE ORAL 04/25/19 12:00 04/25/19 13:00 Quetiapine Fumarate (SEROquel) 300 mg BEDTIME ORAL 04/24/19 21:00 05/24/19 20:59 04/24/19 21:01 Risperidone (RisperDAL) 1 mg BID ORAL 04/24/19 18:00 05/24/19 17:59 04/25/19 08:39 Zolpidem Tartrate (Ambien) 5 mg HSPRN PRN ORAL Insomnia 04/24/19 21:00 05/01/19 20:59 04/24/19 21:01 Peterson Bartlett MD Apr 25, 2019 12:55
--- NOTE | 2019-04-25 14:26 | NUR ---
RD ASSESSMENT & RECOMMENDATIONS SEE CARE ACTIVITY FOR COMPLETE ASSESSMENT DAILY ESTIMATED NEEDS: Needs based on General/ 59kg 25-30 kcals/kg 6834-3478 total kcals 1-1.2 g protein/kg 59-71 g total protein 25-30 mL/kg 6229-6380 total fluid mLs NUTRITION DIAGNOSIS: Inadequate oral intake R/T decreased appetite as evidenced by pt admitted w/ c/o decreased appetite since last endoscopy, "generalized failure to thrive per mother, has been ongoing for 2 months" per MD. CURRENT DIET:REGULAR PO DIET RECOMMENDATIONS: REGULAR, texture per SOCIAL SCIENCES LECTURER ADDITIONAL RECOMMENDATIONS: * Standing wt for accurate CBW * Weekly wt monitoring * F/up w/ Dorian Count x 48 hrs. ENCOURAGE PO INTAKE * Add Ensure Enlive TID w/ meals (350kcal/20g prot per bottle) * Monitor lytes, replete as needed
[2019-04-25 16:00] VITALS: BP 130/80
--- NOTE | 2019-04-25 19:00 | Consultation ---
DATE OF CONSULTATION: 04/25/2019 HISTORY OF PRESENT ILLNESS: This is a 43-year-old female with a history of schizophrenia who has been admitted to the hospital for medical stabilization. The patient has a history of gastritis and developmental delay. The patient is a a poor historian, has memory impairment, has been having decreased oral intake. The patient knows she is in the hospital however she does not know the date, not able to answer the question. PAST PSYCHIATRIC HISTORY: Schizophrenia, developmental delay PAST MEDICAL HISTORY: As above. ALLERGIES: No known drug allergies. SUBSTANCE ABUSE HISTORY: No known history of illicit drug use or alcohol. MENTAL STATUS EXAMINATION: The patient is alert, oriented times self and place. Mood is neutral. Affect is flat. Thought process, there is a paucity of thought content. Thought content, no suicidal or homicidal ideation. Cognition is impaired. Insight and judgment is impaired. ASSESSMENT: Revere I Schizophrenia, Revere II Developmental delay. Revere III Failure to thrive. Revere IV Moderate. Revere V 20 PLAN: 1. Seroquel and Risperdal will be stopped. 2. Continue mirtazapine 45 mg at bedtime. 3. Start the patient on Zyprexa 10 mg p.o. at bedtime. 4. We will gradually Zyprexa. 5. Zyprexa will also stimulate her appetite long with Remeron. 6. Provided with reality orientation and supportive therapy . Lo Biggs M.D. DR: Kristopher JOB#: [id number] CC:
--- NOTE | 2019-04-25 19:05 | NUR ---
HAND-OFF: Report given to BRUNA Martin.
--- NOTE | 2019-04-25 19:50 | NUR ---
NURSE NOTES: Received patient awake,verbal,resting in bed,comfortable.
[2019-04-25 19:58] VITALS: BP 132/77
--- NOTE | 2019-04-25 19:59 | NUR ---
CASE MANAGEMENT: REVIEW 43Y/FEMALE PRESENTED TO ED FROM HOME CC: ABD PAIN . FREQUENT FALLS X2 MONTHS . HX MENTAL RETARDATION SI: FAILURE TO THRIVE . GRAVE DISABILITY T 97.9 HR 122 RR 18 BP 108/65 SAT 95% ROOM AIR BUN 4 GLUCOSE 131 LACTIC ACID 2.30 IS: NS IVF BOLUS X1 PATIENT ADMITTED TO MED/SURG UNIT 04/24/2019 DCP: PATIENT IS FROM HOME
[2019-04-25] MEDS: OLANZapine 10mg tab ORAL SCH (20:39)
[2019-04-25] MEDS: Zolpidem 5mg tab ORAL PRN (20:39)
[2019-04-26] VITALS (7 sets, daily range): BP systolic 101–156; BP diastolic 67–81
[2019-04-26 07:11] LABS: BASOPHILS % (AUTO) 2.1 % (0.0-2.0); EOSINOPHILS % (AUTO) 7.2 % (0.0-3.0); HEMATOCRIT 36.7 % (37.0-47.0); HEMOGLOBIN 12.1 G/DL (12.0-16.0); LYMPHOCYTES % (AUTO) 39.8 % (20.0-45.0); MEAN CORPUSCULAR VOLUME 100 FL (80-99); MONOCYTES % (AUTO) 9.9 % (1.0-10.0); NEUTROPHILS % (AUTO) 40.9 % (45.0-75.0); PLATELET COUNT 180 K/UL (150-450); RED BLOOD COUNT 3.66 M/UL (4.20-5.40); RED CELL DISTRIBUTION WIDTH 11.9 % (11.6-14.8); WHITE BLOOD COUNT 6.5 K/UL (4.8-10.8)
[2019-04-26 07:23] LABS: ANION GAP 6 mmol/L (5-15); BLOOD UREA NITROGEN 7 mg/dL (7-18); CALCIUM 9.5 MG/DL (8.5-10.1); CARBON DIOXIDE 29 MMOL/L (21-32); CHLORIDE 109 MMOL/L (98-107); CREATININE 0.7 MG/DL (0.55-1.30); POTASSIUM 3.9 MMOL/L (3.5-5.1); SODIUM 144 MMOL/L (136-145)
--- NOTE | 2019-04-26 07:33 | NUR ---
HAND-OFF: Report given to Roberta Simons RN.
--- NOTE | 2019-04-26 07:36 | NUR ---
NURSE NOTES: Patient is awake and alert,respirations unlabored,patient sitting up in bed and eating breakfast.IV In the Right AC intact.Saline lock.Bed alarm is on,call light within reach.
--- NOTE | 2019-04-26 10:08 | NUR ---
CHARGE NURSE NOTE: BP 101/67, HR 124bpm, Temp.97.8F.No pain.Asymptomatic. was notified, asked if he wants ECG.
--- NOTE | 2019-04-26 10:09 | NUR ---
NURSE NOTES: Patient appears calm,although she says she wants to go home.patient states no pain. Monitored hear rate patient heart rate 124 and regular,no complaint of chest pain,02 sats 95 % on room .BP 101/67,resp 18,oral temp 97.9. Charge nurse aware and will notify Doctor.
--- NOTE | 2019-04-26 11:06 | GI Progress Note ---
Assessment/Plan Problems: (1) Failure to thrive in adult ICD Codes: R62.7 - Adult failure to thrive SNOMED: 550092904 (2) Frequent falls ICD Codes: R29.6 - Repeated falls SNOMED: 455943296 (3) Development delay ICD Codes: R62.50 - Unspecified lack of expected normal physiological development in childhood SNOMED: 490108483 (4) Schizophrenia ICD Codes: F20.9 - Schizophrenia, unspecified SNOMED: 82483959 Status: stable Status Narrative Discussed with Dr. Schmidt. Assessment/Plan Speech therapy notes reviewed. We will consider PEG placement pending work-up Follow-up calorie count to see if nutritional needs are met Possible video swallow study test for any risk of silent aspiration We will consider Marinol as appetite stimulant Reglan as needed for any GI motility PPI Zofran as needed The patient was seen and examined at bedside and all new and available data was reviewed in the patients chart. I agree with the above findings, impression and plan. (Patient seen earlier today. Signature stamp does not reflect patient encounter time.). - Anjel Schmidt MD Subjective Gastrointestinal/Abdominal: Reports: no symptoms Objective Last 24 Hour Vital Signs Date Time Temp Pulse Resp B/P (MAP) Pulse Ox O2 Delivery O2 Flow Rate FiO2 04/26/19 09:53 97.9 124 24 101/67 (78) 95 04/26/19 09:48 Room Air 04/26/19 08:00 98.0 126 20 156/81 (106) 91 04/26/19 04:00 97.6 85 20 125/78 (94) 94 04/26/19 00:00 97.5 52 20 130/73 (92) 94 04/25/19 20:11 Room Air 04/25/19 19:58 97.3 98 20 132/77 (95) 94 04/25/19 16:00 97.9 81 13 130/80 (97) 96 04/25/19 12:00 97.2 92 12 127/79 (95) 95 Intake and Output 04/25/19 04/26/19 19:00 07:00 Intake Total 400 ml 120 ml Balance 400 ml 120 ml Intake Oral 400 ml 120 ml # Voids 3 3 Laboratory Tests Test 04/26/19 05:40 White Blood Count 6.5 K/UL (4.8-10.8) Red Blood Count 3.66 M/UL (4.20-5.40) L Hemoglobin 12.1 G/DL (12.0-16.0) Hematocrit 36.7 % (37.0-47.0) L Mean Corpuscular Volume 100 FL (80-99) H Mean Corpuscular Hemoglobin 33.0 PG (27.0-31.0) H Mean Corpuscular Hemoglobin Concent 32.9 G/DL (32.0-36.0) Red Cell Distribution Width 11.9 % (11.6-14.8) Platelet Count 180 K/UL (150-450) Mean Platelet Volume 10.1 FL (6.5-10.1) Neutrophils (%) (Auto) 40.9 % (45.0-75.0) L Lymphocytes (%) (Auto) 39.8 % (20.0-45.0) Monocytes (%) (Auto) 9.9 % (1.0-10.0) Eosinophils (%) (Auto) 7.2 % (0.0-3.0) H Basophils (%) (Auto) 2.1 % (0.0-2.0) H Sodium Level 144 MMOL/L (136-145) Potassium Level 3.9 MMOL/L (3.5-5.1) Chloride Level 109 MMOL/L (98-107) H Carbon Dioxide Level 29 MMOL/L (21-32) Anion Gap 6 mmol/L (5-15) Blood Urea Nitrogen 7 mg/dL (7-18) Creatinine 0.7 MG/DL (0.55-1.30) Estimat Glomerular Filtration Rate > 60 mL/min (>60) Glucose Level 103 MG/DL (74-106) Calcium Level 9.5 MG/DL (8.5-10.1) Height (Feet): 5 Height (Inches): 0.00 Weight (Pounds): 130 General Appearance: WD/WN, no apparent distress, alert Cardiovascular: normal rate Respiratory/Chest: normal breath sounds, no respiratory distress Abdominal Exam: normal bowel sounds, non tender, soft Extremities: non-tender Pita Martinez NP Apr 26, 2019 11:06
--- NOTE | 2019-04-26 13:09 | Diagnostic Imaging Report ---
APPROVED REPORT CPT Code: 53528 Present Symptoms Comments: Screening BILATERAL: Imaging reveals a patent deep venous system bilaterally. There is no evidence of thrombus within the common femoral, superficial femoral, popliteal or tibial segments. The greater saphenous veins are within normal limits. Doppler indicates normal spontaneous flow within these segments.
--- NOTE | 2019-04-26 13:20 | Pulmonology Progress Note ---
Assessment/Plan Problems: (1) Failure to thrive in adult (2) Frequent falls (3) Schizophrenia (4) Development delay Assessment/Plan doing better no new complains pt/ot evaluation pending social service evaluation dvt prophylaxis. Subjective ROS Limited/Unobtainable: No Constitutional: Reports: no symptoms HEENT: Repors: no symptoms Respiratory: Reports: no symptoms Allergies: Coded Allergies: No Known Allergies (Unverified , 11/26/12) Objective Last 24 Hour Vital Signs Date Time Temp Pulse Resp B/P (MAP) Pulse Ox O2 Delivery O2 Flow Rate FiO2 04/26/19 09:53 97.9 124 24 101/67 (78) 95 04/26/19 09:48 Room Air 04/26/19 08:00 98.0 126 20 156/81 (106) 91 04/26/19 04:00 97.6 85 20 125/78 (94) 94 04/26/19 00:00 97.5 52 20 130/73 (92) 94 04/25/19 20:11 Room Air 04/25/19 19:58 97.3 98 20 132/77 (95) 94 04/25/19 16:00 97.9 81 13 130/80 (97) 96 Intake and Output 04/25/19 04/26/19 19:00 07:00 Intake Total 400 ml 120 ml Balance 400 ml 120 ml Intake Oral 400 ml 120 ml # Voids 3 3 General Appearance: WD/WN HEENT: normocephalic, atraumatic Respiratory/Chest: chest wall non-tender, lungs clear Breasts: no masses Cardiovascular: normal peripheral pulses, normal rate Abdomen: normal bowel sounds, soft, non tender Extremities: no cyanosis Skin: no rash Microbiology Date/Time Source Procedure Growth Status 04/24/19 09:50 Blood Blood Culture - Preliminary NO GROWTH AFTER 24 HOURS Resulted 04/24/19 09:50 Blood Blood Culture - Preliminary NO GROWTH AFTER 24 HOURS Resulted Laboratory Tests 04/26/19 05:40: White Blood Count 6.5, Red Blood Count 3.66L, Hemoglobin 12.1, Hematocrit 36.7L , Mean Corpuscular Volume 100H, Mean Corpuscular Hemoglobin 33.0H, Mean Corpuscular Hemoglobin Concent 32.9, Red Cell Distribution Width 11.9, Platelet Count 180, Mean Platelet Volume 10.1, Neutrophils (%) (Auto) 40.9L, Lymphocytes (%) (Auto) 39.8, Monocytes (%) (Auto) 9.9, Eosinophils (%) (Auto) 7.2H, Basophils (%) (Auto) 2.1H, Sodium Level 144, Potassium Level 3.9, Chloride Level 109H, Carbon Dioxide Level 29, Anion Gap 6, Blood Urea Nitrogen 7, Creatinine 0.7, Estimat Glomerular Filtration Rate > 60, Glucose Level 103, Calcium Level 9.5 Current Medications Medications (Trade) Dose Ordered Sig/Moo Route PRN Reason Start Time Stop Time Status Last Admin Dose Admin Acetaminophen (Tylenol) 650 mg Q4H PRN ORAL T>100.5 04/24/19 11:30 05/24/19 11:29 Dextrose (Dextrose 50%) 25 ml Q30M PRN IV Hypoglycemia 04/24/19 11:30 05/24/19 11:29 Dextrose (Dextrose 50%) 50 ml Q30M PRN IV Hypoglycemia 04/24/19 11:30 05/24/19 11:29 Lorazepam (Ativan 2mg/ml 1ml) 0.5 mg Q4H PRN IV For Anxiety 04/24/19 11:30 05/01/19 11:29 Mirtazapine (Remeron) 45 mg BEDTIME ORAL 04/24/19 21:00 05/24/19 20:59 04/25/19 20:39 Morphine Sulfate (Morphine Sulfate) 1 mg Q4H PRN IVP PAIN 4-10 04/24/19 11:30 05/01/19 11:29 Olanzapine (ZyPREXA) 10 mg BEDTIME ORAL 04/25/19 21:00 05/25/19 20:59 04/25/19 20:39 Ondansetron HCl (Zofran) 4 mg Q6H PRN IVP Nausea & Vomiting 04/24/19 11:30 05/24/19 11:29 Polyethylene Glycol (Miralax) 17 gm HSPRN PRN ORAL Constipation 04/24/19 21:00 05/24/19 20:59 Zolpidem Tartrate (Ambien) 5 mg HSPRN PRN ORAL Insomnia 04/24/19 21:00 05/01/19 20:59 04/25/19 20:39 Peterson Bartlett MD Apr 26, 2019 13:20
--- NOTE | 2019-04-26 14:57 | NUR ---
Social Service Note ZANE spoke with patient's mother Valorie Torres [phone]. Mother became agitated over the phone as SW attempted to assess for home safety. SW addressed the 17 ER visits. Mother states patient's PMD stated for mother to take patient to the ER for evaluation. Mother states Dr. Schmidt is patient's PMD. ZANE explained he is a specialist is there another MD involved in patient's care. Per mother Dr. Schmidt is the only MD. Mother didn't want to address ER visits. Mother states patient will only return home. ZANE left a message for the [facility] Sonam Miranda [phone] and her supervisor telephone information Rocio Johnson. No return call at this time. Recommend home health visit upon discharge. Addendum: 04/26/19 at 1543 by JUNE TALAMANTES Spoke with Rocio at the [facility]. Patient requested to deactivate services Jun 2018. Patient is able to reinstate at any time.
--- NOTE | 2019-04-26 18:00 | NUR ---
NURSE NOTES: Patient resting,patient Mother was here this evening,wanting updates from the Doctors senior asset manager Claudette also made aware.Iv saline lock reinserted in the right AC #22 . Bed alarm switchboard receptionist light within reach.
--- NOTE | 2019-04-26 19:21 | NUR ---
HAND-OFF: Report given to YAJAIRA MCFARLAND.
--- NOTE | 2019-04-26 19:32 | Internal Med Progress Note ---
Subjective Date of Service: Apr 26, 2019 Physician Name Kingston Pace Attending Physician Zaheer Hickey MD Current Medications Medications (Trade) Dose Ordered Sig/Moo Route PRN Reason Start Time Stop Time Status Last Admin Dose Admin Acetaminophen (Tylenol) 650 mg Q4H PRN ORAL T>100.5 04/24/19 11:30 05/24/19 11:29 Dextrose (Dextrose 50%) 25 ml Q30M PRN IV Hypoglycemia 04/24/19 11:30 05/24/19 11:29 Dextrose (Dextrose 50%) 50 ml Q30M PRN IV Hypoglycemia 04/24/19 11:30 05/24/19 11:29 Lorazepam (Ativan 2mg/ml 1ml) 0.5 mg Q4H PRN IV For Anxiety 04/24/19 11:30 05/01/19 11:29 Mirtazapine (Remeron) 45 mg BEDTIME ORAL 04/24/19 21:00 05/24/19 20:59 04/25/19 20:39 Morphine Sulfate (Morphine Sulfate) 1 mg Q4H PRN IVP PAIN 4-10 04/24/19 11:30 05/01/19 11:29 Olanzapine (ZyPREXA) 10 mg BEDTIME ORAL 04/25/19 21:00 05/25/19 20:59 04/25/19 20:39 Ondansetron HCl (Zofran) 4 mg Q6H PRN IVP Nausea & Vomiting 04/24/19 11:30 05/24/19 11:29 Polyethylene Glycol (Miralax) 17 gm HSPRN PRN ORAL Constipation 04/24/19 21:00 05/24/19 20:59 Zolpidem Tartrate (Ambien) 5 mg HSPRN PRN ORAL Insomnia 04/24/19 21:00 05/01/19 20:59 04/25/19 20:39 Allergies: Coded Allergies: No Known Allergies (Unverified , 11/26/12) ROS Limited/Unobtainable: No Constitutional: Reports: no symptoms HEENT: Reports: no symptoms Cardiovascular: Reports: no symptoms Respiratory: Reports: no symptoms Gastrointestinal/Abdominal: Reports: no symptoms Genitourinary: Reports: no symptoms Neurologic/Psychiatric: Reports: no symptoms Subjective 43 YO F admitted with frequent falls and failure to thrive. Cover for Int Med- Dr Hickey Objective Last Vital Signs Date Time Temp Pulse Resp B/P (MAP) Pulse Ox O2 Delivery O2 Flow Rate FiO2 04/26/19 16:00 98.4 118 18 126/80 (95) 96 04/26/19 09:48 Room Air Laboratory Tests Test 04/26/19 05:40 White Blood Count 6.5 K/UL (4.8-10.8) Red Blood Count 3.66 M/UL (4.20-5.40) L Hemoglobin 12.1 G/DL (12.0-16.0) Hematocrit 36.7 % (37.0-47.0) L Mean Corpuscular Volume 100 FL (80-99) H Mean Corpuscular Hemoglobin 33.0 PG (27.0-31.0) H Mean Corpuscular Hemoglobin Concent 32.9 G/DL (32.0-36.0) Red Cell Distribution Width 11.9 % (11.6-14.8) Platelet Count 180 K/UL (150-450) Mean Platelet Volume 10.1 FL (6.5-10.1) Neutrophils (%) (Auto) 40.9 % (45.0-75.0) L Lymphocytes (%) (Auto) 39.8 % (20.0-45.0) Monocytes (%) (Auto) 9.9 % (1.0-10.0) Eosinophils (%) (Auto) 7.2 % (0.0-3.0) H Basophils (%) (Auto) 2.1 % (0.0-2.0) H Sodium Level 144 MMOL/L (136-145) Potassium Level 3.9 MMOL/L (3.5-5.1) Chloride Level 109 MMOL/L (98-107) H Carbon Dioxide Level 29 MMOL/L (21-32) Anion Gap 6 mmol/L (5-15) Blood Urea Nitrogen 7 mg/dL (7-18) Creatinine 0.7 MG/DL (0.55-1.30) Estimat Glomerular Filtration Rate > 60 mL/min (>60) Glucose Level 103 MG/DL (74-106) Calcium Level 9.5 MG/DL (8.5-10.1) Microbiology Date/Time Source Procedure Growth Status 04/24/19 09:50 Blood Blood Culture - Preliminary NO GROWTH AFTER 24 HOURS Resulted 04/24/19 09:50 Blood Blood Culture - Preliminary NO GROWTH AFTER 24 HOURS Resulted Intake and Output 04/25/19 04/26/19 19:00 07:00 Intake Total 400 ml 120 ml Balance 400 ml 120 ml Intake Oral 400 ml 120 ml # Voids 3 3 Objective General Appearance: WD/WN, no apparent distress, alert EENT: PERRL/EOMI, normal ENT inspection Neck: non-tender, normal alignment, supple, normal inspection Cardiovascular: normal peripheral pulses, normal rate, regular rhythm, no gallop/murmur, no JVD Respiratory/Chest: chest wall non-tender, lungs clear, normal breath sounds, no respiratory distress, no accessory muscle use Abdomen: normal bowel sounds, non tender, soft, no organomegaly, no mass Extremities: normal range of motion Neurologic: safety relief valve technician II-XII grossly normal, no motor/sensory deficits Skin: normal pigmentation, warm/dry Assessment/Plan Problem List: (1) Frequent falls (2) Schizophrenia Assessment & Plan: Await psych eval (3) Failure to thrive in adult Assessment & Plan: Calorie count in progress (4) Development delay Assessment/Plan Discharge planning-see soc work note Kingston Pace MD Apr 26, 2019 19:32
--- NOTE | 2019-04-26 19:42 | NUR ---
NURSE NOTES: Received patient awake,alert,verbal,follows simple command,resting in bed,comfortable.
[2019-04-26] MEDS: Zolpidem 5mg tab ORAL PRN (20:32)
[2019-04-26] MEDS: OLANZapine 10mg tab ORAL SCH (20:32)
[2019-04-27] VITALS: BP 105/73
--- NOTE | 2019-04-27 03:45 | Progress Note ---
DATE: 04/26/2019 SUBJECTIVE: The patient is compliant with medication. Has been taking the mirtazapine. The olanzapine has been started and the patient is tolerating medication. She is a poor historian. Follows commands and has no known behavior issues. Appetite is still low. No behavior issues noted. MENTAL STATUS EXAMINATION: The patient is alert and oriented times self and place. Mood is dysphoric. Affect is constricted. Congruent with mood. Thought process is linear and goal oriented. Thought content, no suicidal or homicidal ideation. ASSESSMENT: 1. Schizophrenia. 2. Anxiety disorder. PLAN: 1. We will continue the Zyprexa. 2. Continue Remeron. 3. Provide the patient with reality orientation and supportive therapy. Lo Biggs M.D. DR: MERCY JOB#: [id number] CC:
[2019-04-27 04:00] VITALS: BP 120/77
[2019-04-27 06:23] LABS: BASOPHILS % (AUTO) 1.7 % (0.0-2.0); EOSINOPHILS % (AUTO) 7.2 % (0.0-3.0); HEMATOCRIT 37.9 % (37.0-47.0); HEMOGLOBIN 12.2 G/DL (12.0-16.0); LYMPHOCYTES % (AUTO) 37.5 % (20.0-45.0); MEAN CORPUSCULAR VOLUME 100 FL (80-99); MONOCYTES % (AUTO) 9.7 % (1.0-10.0); NEUTROPHILS % (AUTO) 44.1 % (45.0-75.0); PLATELET COUNT 181 K/UL (150-450); RED BLOOD COUNT 3.79 M/UL (4.20-5.40); RED CELL DISTRIBUTION WIDTH 12.1 % (11.6-14.8)
[2019-04-27 06:48] LABS: ANION GAP 6 mmol/L (5-15); BLOOD UREA NITROGEN 12 mg/dL (7-18); CALCIUM 9.2 MG/DL (8.5-10.1); CARBON DIOXIDE 29 MMOL/L (21-32); CHLORIDE 107 MMOL/L (98-107); CREATININE 0.7 MG/DL (0.55-1.30); POTASSIUM 3.7 MMOL/L (3.5-5.1); SODIUM 142 MMOL/L (136-145)
--- NOTE | 2019-04-27 07:33 | NUR ---
HAND-OFF: Report given to Roberta Simons RN.
[2019-04-27 08:00] VITALS: BP_SYST 110; BP_SYST 131; BP_DIAS 59; BP_DIAS 91
--- NOTE | 2019-04-27 08:06 | NUR ---
NURSE NOTES: Patient is awake and alert respirations unlabored.patient breakfast at bedside ,patient state she is not hungry,encourage patient to eat her breakfast and patient attempting to eat more,will monitor.Call light within reach.
--- NOTE | 2019-04-27 09:55 | NUR ---
PT EVALUATION NOTE Patient seen for initial evaluation, see complete evaluation for details. Patient presents with generalized weakness and impaired balance which affects patient's ability to perform mobility tasks. Patient requires min/mod assist for bed mobility, min assist for transfers and min assist to ambulate 80 ft with FWW. Patient will benefit from skilled inpatient PT intervention to address strength, balance and safety for improved level of functional mobility. Recommend discharge home with home PT vs SNF for further rehab once medically cleared by MD. Recommend FWW for use at home with ambulation for improved gait stability as patient is a fall risk. Addendum: 04/27/19 at 1320 by SHERIN CISNEROS PT Amended: Links added.
[2019-04-27 12:00] VITALS: BP 120/80
--- NOTE | 2019-04-27 12:40 | GI Progress Note ---
Assessment/Plan Problems: (1) Failure to thrive in adult ICD Codes: R62.7 - Adult failure to thrive SNOMED: 674318139 (2) Frequent falls ICD Codes: R29.6 - Repeated falls SNOMED: 871825876 (3) Development delay ICD Codes: R62.50 - Unspecified lack of expected normal physiological development in childhood SNOMED: 779304855 (4) Schizophrenia ICD Codes: F20.9 - Schizophrenia, unspecified SNOMED: 48763217 Status: stable Status Narrative Discussed with Dr. Schmidt. Assessment/Plan Speech therapy notes reviewed. No plans for PEG, patient tolerating diet Follow-up calorie count to see if nutritional needs are met Consider Marinol as appetite stimulant Reglan as needed for any GI motility PPI Zofran as needed dc planning The patient was seen and examined at bedside and all new and available data was reviewed in the patients chart. I agree with the above findings, impression and plan. (Patient seen earlier today. Signature stamp does not reflect patient encounter time.). - Anjel Schmidt MD Subjective Gastrointestinal/Abdominal: Reports: no symptoms Objective Last 24 Hour Vital Signs Date Time Temp Pulse Resp B/P (MAP) Pulse Ox O2 Delivery O2 Flow Rate FiO2 04/27/19 09:00 Room Air 04/27/19 08:00 98.1 18 110/59 (76) 96 04/27/19 04:00 98.1 98 20 120/77 (91) 95 04/27/19 00:00 98.5 100 20 105/73 (84) 100 04/26/19 20:49 Room Air 04/26/19 20:00 97.2 112 20 116/74 (88) 94 04/26/19 16:00 98.4 118 18 126/80 (95) 96 Intake and Output 04/26/19 04/27/19 18:59 06:59 Intake Total 840 ml Balance 840 ml Intake Oral 840 ml # Voids 6 2 Laboratory Tests Test 04/27/19 05:36 White Blood Count 7.0 K/UL (4.8-10.8) Red Blood Count 3.79 M/UL (4.20-5.40) L Hemoglobin 12.2 G/DL (12.0-16.0) Hematocrit 37.9 % (37.0-47.0) Mean Corpuscular Volume 100 FL (80-99) H Mean Corpuscular Hemoglobin 32.2 PG (27.0-31.0) H Mean Corpuscular Hemoglobin Concent 32.2 G/DL (32.0-36.0) Red Cell Distribution Width 12.1 % (11.6-14.8) Platelet Count 181 K/UL (150-450) Mean Platelet Volume 9.8 FL (6.5-10.1) Neutrophils (%) (Auto) 44.1 % (45.0-75.0) L Lymphocytes (%) (Auto) 37.5 % (20.0-45.0) Monocytes (%) (Auto) 9.7 % (1.0-10.0) Eosinophils (%) (Auto) 7.2 % (0.0-3.0) H Basophils (%) (Auto) 1.7 % (0.0-2.0) Sodium Level 142 MMOL/L (136-145) Potassium Level 3.7 MMOL/L (3.5-5.1) Chloride Level 107 MMOL/L (98-107) Carbon Dioxide Level 29 MMOL/L (21-32) Anion Gap 6 mmol/L (5-15) Blood Urea Nitrogen 12 mg/dL (7-18) Creatinine 0.7 MG/DL (0.55-1.30) Estimat Glomerular Filtration Rate > 60 mL/min (>60) Glucose Level 113 MG/DL (74-106) H Calcium Level 9.2 MG/DL (8.5-10.1) Height (Feet): 5 Height (Inches): 0.00 Weight (Pounds): 130 General Appearance: WD/WN, no apparent distress, alert Cardiovascular: normal rate Respiratory/Chest: normal breath sounds, no respiratory distress Abdominal Exam: normal bowel sounds, non tender, soft Extremities: normal range of motion, non-tender Pita Martinez NP Apr 27, 2019 12:40
--- NOTE | 2019-04-27 14:01 | NUR ---
RD ASSESSMENT & RECOMMENDATIONS SEE CARE ACTIVITY FOR COMPLETE ASSESSMENT CALORIE COUNT X 48 HRS COMPLETED: INCOMPLETE DATA, ONLY 3/6 DATA AVAILABLE 04/25 Breakfast: data not available. Per EMR: 50% intake Lunch: data not available. Per EMR: 50% intake Dinner: ~570kcal 100% butter 50% minestrone soup 50% baked fish 10% spinach 15% dinner roll 100% baldomero ensure 04/26 Breakfast: ~360kcal 100% baldomero ensure 0% corn flakes 5% eggs 0% sausage 5% muffin 50% coffee decaf 5% milk Lunch: ~800kcal 100% baldomero ensure 100% beef lasagna 50% mashed potatoes 10% carrots 50% balodmero pudding 50% grape juice Dinner: data not available. Per EMR: 100% intake RESULTS: data is INCOMPLETE to assess accurate consumption in the last 48 hrs, only 3 data out of 6 were available for review -> pt consumed total of 1730kcal from three meals, avg of 576kcal per meal. It appears pt's appetite is improving. Pt has been drinking 100% of Ensure Enlive TID w/ meals (total of 1050kcal and 60g prot from Ensure TID) w/ fair-good acceptance of meals. Although not part of calorie count, per RN, pt consumed 100% Ensure, a bite of eggs, 100% of 4oz milk and 100% corn flakes this AM (04/27) for breakfast and 100% of chicken noodle soup, >50% of grilled cheese s/w, 100% of juice and Ensure at lunch today. It appears pt's current intake of meals is adequate to meet est kcal/prot needs. Recommend to continue Ensure Enlive TID until pt's intake is consistently >70%. DAILY ESTIMATED NEEDS: Needs based on General/ 59kg 25-30 kcals/kg 5832-1734 total kcals 1-1.2 g protein/kg 59-71 g total protein 25-30 mL/kg 5019-6715 total fluid mLs NUTRITION DIAGNOSIS: Inadequate oral intake R/T decreased appetite as evidenced by pt admitted w/ c/o decreased appetite since last endoscopy, "generalized failure to thrive per mother, has been ongoing for 2 months" per MD, now w/ improved PO intake. CURRENT DIET:REGULAR PO DIET RECOMMENDATIONS: REGULAR, texture per OUTSIDE INSTALLATION MACHINIST ADDITIONAL RECOMMENDATIONS: * Standing wt for accurate CBW * Weekly wt monitoring * ALAN COUNT X 48 HRS COMPLETED-> ADEQUATE PO INTAKE * Continue Ensure Enlive TID w/ meals until meal intake is consistently >70% (pt taking 100% of Ensure TID- 350kcal/20g prot per bottle) * Monitor lytes, replete as needed
--- NOTE | 2019-04-27 14:19 | Pulmonology Progress Note ---
Assessment/Plan Problems: (1) Failure to thrive in adult (2) Frequent falls (3) Schizophrenia (4) Development delay Assessment/Plan doing better no new complains pt/ot evaluation pending social service evaluation dvt prophylaxis. Subjective ROS Limited/Unobtainable: No Constitutional: Reports: no symptoms HEENT: Repors: no symptoms Allergies: Coded Allergies: No Known Allergies (Unverified , 11/26/12) Objective Last 24 Hour Vital Signs Date Time Temp Pulse Resp B/P (MAP) Pulse Ox O2 Delivery O2 Flow Rate FiO2 04/27/19 12:00 98.1 106 19 120/80 (93) 93 04/27/19 09:00 Room Air 04/27/19 08:00 97.8 120 19 131/91 (104) 96 04/27/19 04:00 98.1 98 20 120/77 (91) 95 04/27/19 00:00 98.5 100 20 105/73 (84) 100 04/26/19 20:49 Room Air 04/26/19 20:00 97.2 112 20 116/74 (88) 94 04/26/19 16:00 98.4 118 18 126/80 (95) 96 Intake and Output 04/26/19 04/27/19 19:00 07:00 Intake Total 840 ml Balance 840 ml Intake Oral 840 ml # Voids 6 2 General Appearance: WD/WN HEENT: normocephalic, atraumatic Respiratory/Chest: chest wall non-tender, lungs clear Breasts: no masses Cardiovascular: normal peripheral pulses, normal rate Abdomen: normal bowel sounds, no organomegaly Genitourinary: normal external genitalia Skin: no rash Laboratory Tests 04/27/19 05:36: White Blood Count 7.0, Red Blood Count 3.79L, Hemoglobin 12.2, Hematocrit 37.9, Mean Corpuscular Volume 100H, Mean Corpuscular Hemoglobin 32.2H, Mean Corpuscular Hemoglobin Concent 32.2, Red Cell Distribution Width 12.1, Platelet Count 181, Mean Platelet Volume 9.8, Neutrophils (%) (Auto) 44.1L, Lymphocytes ( %) (Auto) 37.5, Monocytes (%) (Auto) 9.7, Eosinophils (%) (Auto) 7.2H, Basophils (%) (Auto) 1.7, Sodium Level 142, Potassium Level 3.7, Chloride Level 107, Carbon Dioxide Level 29, Anion Gap 6, Blood Urea Nitrogen 12, Creatinine 0.7, Estimat Glomerular Filtration Rate > 60, Glucose Level 113H, Calcium Level 9.2 Current Medications Medications (Trade) Dose Ordered Sig/Moo Route PRN Reason Start Time Stop Time Status Last Admin Dose Admin Acetaminophen (Tylenol) 650 mg Q4H PRN ORAL T>100.5 04/24/19 11:30 05/24/19 11:29 Dextrose (Dextrose 50%) 25 ml Q30M PRN IV Hypoglycemia 04/24/19 11:30 05/24/19 11:29 Dextrose (Dextrose 50%) 50 ml Q30M PRN IV Hypoglycemia 04/24/19 11:30 05/24/19 11:29 Lorazepam (Ativan 2mg/ml 1ml) 0.5 mg Q4H PRN IV For Anxiety 04/24/19 11:30 05/01/19 11:29 Mirtazapine (Remeron) 45 mg BEDTIME ORAL 04/24/19 21:00 05/24/19 20:59 04/26/19 20:32 Morphine Sulfate (Morphine Sulfate) 1 mg Q4H PRN IVP PAIN 4-10 04/24/19 11:30 05/01/19 11:29 Olanzapine (ZyPREXA) 10 mg BEDTIME ORAL 04/25/19 21:00 05/25/19 20:59 04/26/19 20:32 Ondansetron HCl (Zofran) 4 mg Q6H PRN IVP Nausea & Vomiting 04/24/19 11:30 05/24/19 11:29 Polyethylene Glycol (Miralax) 17 gm HSPRN PRN ORAL Constipation 04/24/19 21:00 05/24/19 20:59 Zolpidem Tartrate (Ambien) 5 mg HSPRN PRN ORAL Insomnia 04/24/19 21:00 05/01/19 20:59 04/26/19 20:32 Peterson Bartlett MD Apr 27, 2019 14:19
--- NOTE | 2019-04-27 15:37 | Cardiology Report ---
APPROVED REPORT EKG Measurement Heart [id number] MS [id number] Sinus tachycardia Otherwise normal ECG
[2019-04-27 16:00] VITALS: BP 122/82
--- NOTE | 2019-04-27 18:00 | NUR ---
NURSE NOTES: Patient sitting up,eating dinner,call light within reach .,
--- NOTE | 2019-04-27 18:24 | Internal Med Progress Note ---
Subjective Date of Service: Apr 27, 2019 Physician Name Kingston Pace Attending Physician Zaheer Hickey MD Current Medications Medications (Trade) Dose Ordered Sig/Moo Route PRN Reason Start Time Stop Time Status Last Admin Dose Admin Acetaminophen (Tylenol) 650 mg Q4H PRN ORAL T>100.5 04/24/19 11:30 05/24/19 11:29 Dextrose (Dextrose 50%) 25 ml Q30M PRN IV Hypoglycemia 04/24/19 11:30 05/24/19 11:29 Dextrose (Dextrose 50%) 50 ml Q30M PRN IV Hypoglycemia 04/24/19 11:30 05/24/19 11:29 Lorazepam (Ativan 2mg/ml 1ml) 0.5 mg Q4H PRN IV For Anxiety 04/24/19 11:30 05/01/19 11:29 Mirtazapine (Remeron) 45 mg BEDTIME ORAL 04/24/19 21:00 05/24/19 20:59 04/26/19 20:32 Morphine Sulfate (Morphine Sulfate) 1 mg Q4H PRN IVP PAIN 4-10 04/24/19 11:30 05/01/19 11:29 Olanzapine (ZyPREXA) 10 mg BEDTIME ORAL 04/25/19 21:00 05/25/19 20:59 04/26/19 20:32 Ondansetron HCl (Zofran) 4 mg Q6H PRN IVP Nausea & Vomiting 04/24/19 11:30 05/24/19 11:29 Polyethylene Glycol (Miralax) 17 gm HSPRN PRN ORAL Constipation 04/24/19 21:00 05/24/19 20:59 Zolpidem Tartrate (Ambien) 5 mg HSPRN PRN ORAL Insomnia 04/24/19 21:00 05/01/19 20:59 04/26/19 20:32 Allergies: Coded Allergies: No Known Allergies (Unverified , 11/26/12) ROS Limited/Unobtainable: No Constitutional: Reports: no symptoms HEENT: Reports: no symptoms Cardiovascular: Reports: no symptoms Respiratory: Reports: no symptoms Gastrointestinal/Abdominal: Reports: no symptoms Genitourinary: Reports: no symptoms Neurologic/Psychiatric: Reports: no symptoms Subjective 43 YO F admitted with frequent falls and failure to thrive. Cover for Int Med- Dr Hickey Objective Last Vital Signs Date Time Temp Pulse Resp B/P (MAP) Pulse Ox O2 Delivery O2 Flow Rate FiO2 04/27/19 12:00 98.1 106 19 120/80 (93) 93 04/27/19 09:00 Room Air Laboratory Tests Test 04/27/19 05:36 White Blood Count 7.0 K/UL (4.8-10.8) Red Blood Count 3.79 M/UL (4.20-5.40) L Hemoglobin 12.2 G/DL (12.0-16.0) Hematocrit 37.9 % (37.0-47.0) Mean Corpuscular Volume 100 FL (80-99) H Mean Corpuscular Hemoglobin 32.2 PG (27.0-31.0) H Mean Corpuscular Hemoglobin Concent 32.2 G/DL (32.0-36.0) Red Cell Distribution Width 12.1 % (11.6-14.8) Platelet Count 181 K/UL (150-450) Mean Platelet Volume 9.8 FL (6.5-10.1) Neutrophils (%) (Auto) 44.1 % (45.0-75.0) L Lymphocytes (%) (Auto) 37.5 % (20.0-45.0) Monocytes (%) (Auto) 9.7 % (1.0-10.0) Eosinophils (%) (Auto) 7.2 % (0.0-3.0) H Basophils (%) (Auto) 1.7 % (0.0-2.0) Sodium Level 142 MMOL/L (136-145) Potassium Level 3.7 MMOL/L (3.5-5.1) Chloride Level 107 MMOL/L (98-107) Carbon Dioxide Level 29 MMOL/L (21-32) Anion Gap 6 mmol/L (5-15) Blood Urea Nitrogen 12 mg/dL (7-18) Creatinine 0.7 MG/DL (0.55-1.30) Estimat Glomerular Filtration Rate > 60 mL/min (>60) Glucose Level 113 MG/DL (74-106) H Calcium Level 9.2 MG/DL (8.5-10.1) Intake and Output 04/26/19 04/27/19 19:00 07:00 Intake Total 840 ml Balance 840 ml Intake Oral 840 ml # Voids 6 2 Objective General Appearance: WD/WN, no apparent distress, alert EENT: PERRL/EOMI, normal ENT inspection Neck: non-tender, normal alignment, supple, normal inspection Cardiovascular: normal peripheral pulses, normal rate, regular rhythm, no gallop/murmur, no JVD Respiratory/Chest: chest wall non-tender, lungs clear, normal breath sounds, no respiratory distress, no accessory muscle use Abdomen: normal bowel sounds, non tender, soft, no organomegaly, no mass Extremities: normal range of motion Neurologic: hand bunch maker II-XII grossly normal, no motor/sensory deficits Skin: normal pigmentation, warm/dry Assessment/Plan Problem List: (1) Frequent falls (2) Schizophrenia Assessment & Plan: Await psych eval (3) Failure to thrive in adult Assessment & Plan: Calorie count in progress (4) Development delay Assessment/Plan Discharge planning-see soc work note Kingston Pace MD Apr 27, 2019 18:24
--- NOTE | 2019-04-27 19:22 | NUR ---
HAND-OFF: Report given to YAJAIRA MCFARLAND.
--- NOTE | 2019-04-27 19:53 | NUR ---
NURSE NOTES: Received patient awake,verbal,resting in bed,comfortable.
[2019-04-27 20:00] VITALS: BP 122/82
[2019-04-27] MEDS: Zolpidem 5mg tab ORAL PRN (20:21)
[2019-04-27] MEDS: OLANZapine 10mg tab ORAL SCH (20:21)
[2019-04-28 00:03] VITALS: BP 117/62
--- NOTE | 2019-04-28 02:45 | Progress Note ---
DATE: 04/27/2019 SUBJECTIVE: The patient is sitting up in chair, complaining of weakness, is a poor historian. Able to answer simple questions and has anxiety. The patient is tolerating Xyprexa and Remeron. MENTAL STATUS EXAMINATION: The patient is alert and oriented times self, place. Poor insight into situation she is in. Mood is anxious. Affect is blunted, congruent with mood and appropriate. Thought process, linear and goal oriented. Thought content, no suicidal or homicidal ideation. ASSESSMENT: 1. Schizophrenia. 2. Anxiety disorder/insomnia PLAN: 1. The patient will be continued on mg at bedtime. 2. Zyprexa 10 mg at bedtime to stimulate her appetite. 3. Provide the patient with reality orientation and supportive therapy. Lo Biggs M.D. DR: LISY JOB#: [id number] CC: SHILOH
--- NOTE | 2019-04-28 03:05 | NUR ---
HAND-OFF: Report given to BRUNA Schwartz.
--- NOTE | 2019-04-28 03:09 | NUR ---
NURSE NOTES: Received report from BRUNA Martin. Patient in bed asleep at this time. No signs of distress or SOB. Bed locked and in lowest position. IV intact. Call light in reach. Will continue to monitor the patient.
[2019-04-28 04:00] VITALS: BP 133/90
--- NOTE | 2019-04-28 06:24 | General Progress Note ---
Assessment/Plan Status: stable Assessment/Plan: (1) Failure to thrive in adult ICD Codes: R62.7 - Adult failure to thrive SNOMED: 660572106 (2) Frequent falls ICD Codes: R29.6 - Repeated falls SNOMED: 460969419 (3) Development delay ICD Codes: R62.50 - Unspecified lack of expected normal physiological development in childhood SNOMED: 828150811 (4) Schizophrenia I Assessment/Plan Speech therapy notes reviewed. No plans for PEG, patient tolerating diet Follow-up calorie count to see if nutritional needs are met Consider Marinol as appetite stimulant Reglan as needed for any GI motility PPI Zofran as needed dc planning Subjective ROS Limited/Unobtainable: Yes Allergies: Coded Allergies: No Known Allergies (Unverified , 11/26/12) Objective Last 24 Hour Vital Signs Date Time Temp Pulse Resp B/P (MAP) Pulse Ox O2 Delivery O2 Flow Rate FiO2 04/28/19 04:00 97.5 93 20 133/90 (104) 94 04/28/19 00:03 98.3 103 18 117/62 (80) 94 04/27/19 20:04 Room Air 04/27/19 20:00 98.5 104 20 122/82 (95) 94 04/27/19 16:00 98.5 82 18 122/82 (95) 99 04/27/19 12:00 98.1 106 19 120/80 (93) 93 04/27/19 09:00 Room Air 04/27/19 08:00 97.8 120 19 131/91 (104) 96 Height (Feet): 5 Height (Inches): 0.00 Weight (Pounds): 130 EENT: normal ENT inspection Neck: supple Cardiovascular: normal rate Abdomen: normal bowel sounds, non tender, soft Extremities: non-tender Anjel Schmidt MD Apr 28, 2019 06:24
--- NOTE | 2019-04-28 07:27 | NUR ---
HAND-OFF: Report given to BRUNA Avila.
--- NOTE | 2019-04-28 07:37 | NUR ---
NURSE NOTES: Patient awake, alert x4, confused and have developmental delay; on room air, no sing of distress and shortness of breath; no sing of chest pain; IV Right AC 20G flushes well; side rails up x2, breaks engaged, bed at lowest position, bed alarm on; will keep monitoring.
[2019-04-28 07:51] LABS: BASOPHILS % (AUTO) 2.1 % (0.0-2.0); EOSINOPHILS % (AUTO) 6.5 % (0.0-3.0); HEMATOCRIT 39.9 % (37.0-47.0); HEMOGLOBIN 12.9 G/DL (12.0-16.0); LYMPHOCYTES % (AUTO) 37.4 % (20.0-45.0); MEAN CORPUSCULAR VOLUME 101 FL (80-99); MONOCYTES % (AUTO) 10.5 % (1.0-10.0); NEUTROPHILS % (AUTO) 43.5 % (45.0-75.0); PLATELET COUNT 216 K/UL (150-450); RED BLOOD COUNT 3.97 M/UL (4.20-5.40); RED CELL DISTRIBUTION WIDTH 12.2 % (11.6-14.8); WHITE BLOOD COUNT 7.5 K/UL (4.8-10.8)
[2019-04-28 08:00] VITALS: BP 120/71
[2019-04-28 08:47] LABS: ANION GAP 8 mmol/L (5-15); BLOOD UREA NITROGEN 15 mg/dL (7-18); CALCIUM 10.4 MG/DL (8.5-10.1); CARBON DIOXIDE 30 MMOL/L (21-32); CHLORIDE 106 MMOL/L (98-107); CREATININE 0.7 MG/DL (0.55-1.30); SODIUM 143 MMOL/L (136-145)
--- NOTE | 2019-04-28 11:54 | Pulmonology Progress Note ---
Assessment/Plan Assessment/Plan ASSESSMENT Failure to thrive Developmental delay Frequent falls Schizoaffective bipolar type Anxiety disorder PLAN OF CARE [facility] floor GI follows Prior outpatient EGD no acute findings Bedside swallow evaluation noted, Diet as per ST recommendation , regular texture with aspiration precautions No evidence of aspiration Tolerated diet PPI Antiemetic prn consider Marinol no plans for GI procedure at this time Psychiatrist followed Psychiatric medication regimen optimized as per psychiatrist tankroom worker involvement appreciated PT eval and Rx Fall precaution Consider home health upon discharge case discussed and evaluated by supervising physician Subjective Allergies: Coded Allergies: No Known Allergies (Unverified , 11/26/12) Subjective denies n/v/abd pain eating no signs of distress Objective Last 24 Hour Vital Signs Date Time Temp Pulse Resp B/P (MAP) Pulse Ox O2 Delivery O2 Flow Rate FiO2 04/28/19 09:00 Room Air 04/28/19 08:00 97.0 117 18 120/71 (87) 95 04/28/19 04:00 97.5 93 20 133/90 (104) 94 04/28/19 00:03 98.3 103 18 117/62 (80) 94 04/27/19 20:04 Room Air 04/27/19 20:00 98.5 104 20 122/82 (95) 94 04/27/19 16:00 98.5 82 18 122/82 (95) 99 04/27/19 12:00 98.1 106 19 120/80 (93) 93 Intake and Output 04/27/19 04/28/19 19:00 07:00 # Voids 2 General Appearance: no acute distress, other - awake, responsive, developmentally delayed middle age female HEENT: normocephalic, atraumatic, anicteric, mucous membranes moist Respiratory/Chest: lungs clear, no respiratory distress, no accessory muscle use Cardiovascular: normal rate Abdomen: normal bowel sounds, soft, non tender - obese Extremities: no edema, pedal pulses normal Neurologic/Psychiatric: abnormal gait, alert, responsive Musculoskeletal: normal muscle bulk Laboratory Tests 04/28/19 06:15: White Blood Count 7.5, Red Blood Count 3.97L, Hemoglobin 12.9, Hematocrit 39.9, Mean Corpuscular Volume 101H, Mean Corpuscular Hemoglobin 32.5H, Mean Corpuscular Hemoglobin Concent 32.3, Red Cell Distribution Width 12.2, Platelet Count 216, Mean Platelet Volume 9.0, Neutrophils (%) (Auto) 43.5L, Lymphocytes ( %) (Auto) 37.4, Monocytes (%) (Auto) 10.5H, Eosinophils (%) (Auto) 6.5H, Basophils (%) (Auto) 2.1H, Sodium Level 143, Potassium Level 4.0, Chloride Level 106, Carbon Dioxide Level 30, Anion Gap 8, Blood Urea Nitrogen 15, Creatinine 0.7, Estimat Glomerular Filtration Rate > 60, Glucose Level 113H, Calcium Level 10.4H Current Medications Medications (Trade) Dose Ordered Sig/Moo Route PRN Reason Start Time Stop Time Status Last Admin Dose Admin Acetaminophen (Tylenol) 650 mg Q4H PRN ORAL T>100.5 04/24/19 11:30 05/24/19 11:29 Dextrose (Dextrose 50%) 25 ml Q30M PRN IV Hypoglycemia 04/24/19 11:30 05/24/19 11:29 Dextrose (Dextrose 50%) 50 ml Q30M PRN IV Hypoglycemia 04/24/19 11:30 05/24/19 11:29 Lorazepam (Ativan 2mg/ml 1ml) 0.5 mg Q4H PRN IV For Anxiety 04/24/19 11:30 05/01/19 11:29 Mirtazapine (Remeron) 45 mg BEDTIME ORAL 04/24/19 21:00 05/24/19 20:59 04/27/19 20:21 Morphine Sulfate (Morphine Sulfate) 1 mg Q4H PRN IVP PAIN 4-10 04/24/19 11:30 05/01/19 11:29 Olanzapine (ZyPREXA) 10 mg BEDTIME ORAL 04/25/19 21:00 05/25/19 20:59 04/27/19 20:21 Ondansetron HCl (Zofran) 4 mg Q6H PRN IVP Nausea & Vomiting 04/24/19 11:30 05/24/19 11:29 Polyethylene Glycol (Miralax) 17 gm HSPRN PRN ORAL Constipation 04/24/19 21:00 05/24/19 20:59 Zolpidem Tartrate (Ambien) 5 mg HSPRN PRN ORAL Insomnia 04/24/19 21:00 05/01/19 20:59 04/27/19 20:21 Iwona Dean NP Apr 28, 2019 11:54
[2019-04-28 12:00] VITALS: BP 124/79
--- NOTE | 2019-04-28 15:58 | Internal Med Progress Note ---
Subjective Date of Service: Apr 28, 2019 Physician Name Kingston Pace Attending Physician Zaheer Hickey MD Current Medications Medications (Trade) Dose Ordered Sig/Moo Route PRN Reason Start Time Stop Time Status Last Admin Dose Admin Acetaminophen (Tylenol) 650 mg Q4H PRN ORAL T>100.5 04/24/19 11:30 05/24/19 11:29 Dextrose (Dextrose 50%) 25 ml Q30M PRN IV Hypoglycemia 04/24/19 11:30 05/24/19 11:29 Dextrose (Dextrose 50%) 50 ml Q30M PRN IV Hypoglycemia 04/24/19 11:30 05/24/19 11:29 Lorazepam (Ativan 2mg/ml 1ml) 0.5 mg Q4H PRN IV For Anxiety 04/24/19 11:30 05/01/19 11:29 Mirtazapine (Remeron) 45 mg BEDTIME ORAL 04/24/19 21:00 05/24/19 20:59 04/27/19 20:21 Morphine Sulfate (Morphine Sulfate) 1 mg Q4H PRN IVP PAIN 4-10 04/24/19 11:30 05/01/19 11:29 Olanzapine (ZyPREXA) 10 mg BEDTIME ORAL 04/25/19 21:00 05/25/19 20:59 04/27/19 20:21 Ondansetron HCl (Zofran) 4 mg Q6H PRN IVP Nausea & Vomiting 04/24/19 11:30 05/24/19 11:29 Polyethylene Glycol (Miralax) 17 gm HSPRN PRN ORAL Constipation 04/24/19 21:00 05/24/19 20:59 Zolpidem Tartrate (Ambien) 5 mg HSPRN PRN ORAL Insomnia 04/24/19 21:00 05/01/19 20:59 04/27/19 20:21 Allergies: Coded Allergies: No Known Allergies (Unverified , 11/26/12) ROS Limited/Unobtainable: No Constitutional: Reports: no symptoms HEENT: Reports: no symptoms Cardiovascular: Reports: no symptoms Respiratory: Reports: no symptoms Gastrointestinal/Abdominal: Reports: no symptoms Genitourinary: Reports: no symptoms Neurologic/Psychiatric: Reports: no symptoms Subjective 43 YO F admitted with frequent falls and failure to thrive. Cover for Int Med- Dr Hickey Objective Last Vital Signs Date Time Temp Pulse Resp B/P (MAP) Pulse Ox O2 Delivery O2 Flow Rate FiO2 04/28/19 12:00 97.9 120 16 124/79 (94) 95 04/28/19 09:00 Room Air Laboratory Tests Test 04/28/19 06:15 White Blood Count 7.5 K/UL (4.8-10.8) Red Blood Count 3.97 M/UL (4.20-5.40) L Hemoglobin 12.9 G/DL (12.0-16.0) Hematocrit 39.9 % (37.0-47.0) Mean Corpuscular Volume 101 FL (80-99) H Mean Corpuscular Hemoglobin 32.5 PG (27.0-31.0) H Mean Corpuscular Hemoglobin Concent 32.3 G/DL (32.0-36.0) Red Cell Distribution Width 12.2 % (11.6-14.8) Platelet Count 216 K/UL (150-450) Mean Platelet Volume 9.0 FL (6.5-10.1) Neutrophils (%) (Auto) 43.5 % (45.0-75.0) L Lymphocytes (%) (Auto) 37.4 % (20.0-45.0) Monocytes (%) (Auto) 10.5 % (1.0-10.0) H Eosinophils (%) (Auto) 6.5 % (0.0-3.0) H Basophils (%) (Auto) 2.1 % (0.0-2.0) H Sodium Level 143 MMOL/L (136-145) Potassium Level 4.0 MMOL/L (3.5-5.1) Chloride Level 106 MMOL/L (98-107) Carbon Dioxide Level 30 MMOL/L (21-32) Anion Gap 8 mmol/L (5-15) Blood Urea Nitrogen 15 mg/dL (7-18) Creatinine 0.7 MG/DL (0.55-1.30) Estimat Glomerular Filtration Rate > 60 mL/min (>60) Glucose Level 113 MG/DL (74-106) H Calcium Level 10.4 MG/DL (8.5-10.1) H Intake and Output 04/27/19 04/28/19 18:59 06:59 # Voids 2 Objective General Appearance: WD/WN, no apparent distress, alert EENT: PERRL/EOMI, normal ENT inspection Neck: non-tender, normal alignment, supple, normal inspection Cardiovascular: normal peripheral pulses, normal rate, regular rhythm, no gallop/murmur, no JVD Respiratory/Chest: chest wall non-tender, lungs clear, normal breath sounds, no respiratory distress, no accessory muscle use Abdomen: normal bowel sounds, non tender, soft, no organomegaly, no mass Extremities: normal range of motion 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
[2019-04-28 16:00] VITALS: BP 100/70
--- NOTE | 2019-04-28 19:21 | NUR ---
HAND-OFF: Report given to BRUNA Zacarias.
--- NOTE | 2019-04-28 19:33 | NUR ---
NURSE NOTES: Received report from BRUNA Avila. Patient in awake and alert x2. No signs of distress or SOB. Bed locked and in lowest position. IV intact. Call light in reach. Will continue to monitor the patient.
[2019-04-28 20:00] VITALS: BP 120/79
[2019-04-28] MEDS: Zolpidem 5mg tab ORAL PRN (20:00)
[2019-04-28] MEDS: OLANZapine 10mg tab ORAL SCH (20:00)
[2019-04-29] VITALS: BP 120/68
--- NOTE | 2019-04-29 00:35 | NUR ---
NURSE NOTES: Primary MD made aware of patients elevated heart rate. No new orders at this time. Patient is in bed asleep, with no signs of distress or SOB. Will continue to monitor.
[2019-04-29 04:00] VITALS: BP 123/75
--- NOTE | 2019-04-29 05:15 | Progress Note ---
DATE: 04/28/2019 SUBJECTIVE: The patient is in bed. No behavior issues noted. Has episodes of anxiety. The patient is compliant with medication. MENTAL STATUS EXAMINATION: Alert and oriented times self and place. Mood is neutral to anxious. Affect is flat. Thought processes, concrete. Thought content, no suicidal or homicidal ideations. Cognition is impaired. Insight and judgment impaired. ASSESSMENT: 1. Schizophrenia. 2. Anxiety disorder. 3. Developmental delay. PLAN: 1. The patient will continue the Remeron 45 mg at bedtime. 2. Zyprexa 10 mg at bedtime. 3. We will stimulate her appetite. 4. Provide the patient with reality orientation and supportive therapy. Lo Biggs M.D. DR: MERCY JOB#: [id number] CC: SHILOH
--- NOTE | 2019-04-29 06:19 | General Progress Note ---
Assessment/Plan Status: stable Assessment/Plan: (1) Failure to thrive in adult ICD Codes: R62.7 - Adult failure to thrive SNOMED: 380966418 (2) Frequent falls ICD Codes: R29.6 - Repeated falls SNOMED: 253604760 (3) Development delay ICD Codes: R62.50 - Unspecified lack of expected normal physiological development in childhood SNOMED: 885254995 (4) Schizophrenia I Assessment/Plan Speech therapy notes reviewed. No plans for PEG, patient tolerating diet Follow-up calorie count to see if nutritional needs are met Consider Marinol as appetite stimulant Reglan as needed for any GI motility PPI Zofran as needed dc planning Subjective ROS Limited/Unobtainable: Yes Allergies: Coded Allergies: No Known Allergies (Unverified , 11/26/12) Objective Last 24 Hour Vital Signs Date Time Temp Pulse Resp B/P (MAP) Pulse Ox O2 Delivery O2 Flow Rate FiO2 04/29/19 04:00 97.9 118 19 123/75 (91) 97 04/29/19 00:00 97.9 124 19 120/68 (85) 95 04/28/19 20:11 Room Air 04/28/19 20:00 97.0 124 19 120/79 (93) 96 04/28/19 16:00 98.0 116 19 100/70 (80) 94 04/28/19 12:00 97.9 120 16 124/79 (94) 95 04/28/19 09:00 Room Air 04/28/19 08:00 97.0 117 18 120/71 (87) 95 Intake and Output 04/28/19 04/29/19 19:00 07:00 # Voids 3 Height (Feet): 5 Height (Inches): 0.00 Weight (Pounds): 130 General Appearance: no apparent distress EENT: normal ENT inspection Neck: supple Cardiovascular: normal rate Respiratory/Chest: decreased breath sounds Abdomen: normal bowel sounds, non tender, soft Extremities: non-tender Anjel Schmidt MD Apr 29, 2019 06:19
--- NOTE | 2019-04-29 07:10 | NUR ---
HAND-OFF: Report given to BRUNA Avila.
--- NOTE | 2019-04-29 07:40 | NUR ---
NURSE NOTES: Patient awake, alert x4; on room air, no sing of distress and shortness of breath; IV Right AC 20G flushes well; side rails up x2, breaks engaged, bed at lowest position; call light within reach; will keep monitoring.
[2019-04-29 08:00] VITALS: BP 124/72
--- NOTE | 2019-04-29 09:00 | Pulmonology Progress Note ---
Assessment/Plan Assessment/Plan ASSESSMENT Failure to thrive Developmental delay Frequent falls Schizoaffective bipolar type Anxiety disorder PLAN OF CARE [facility] floor GI follows Prior outpatient EGD no acute findings Bedside swallow evaluation noted, Diet as per ST recommendation , regular texture with aspiration precautions No evidence of aspiration Tolerated diet PPI Antiemetic prn consider Marinol no plans for GI procedure at this time Psychiatrist followed Psychiatric medication regimen optimized as per psychiatrist farmworker involvement appreciated PT eval and Rx Fall precaution Consider home health upon discharge case discussed and evaluated by supervising physician Subjective Allergies: Coded Allergies: No Known Allergies (Unverified , 11/26/12) Subjective denies n/v/abd pain eating no signs of resp distress depressed Objective Last 24 Hour Vital Signs Date Time Temp Pulse Resp B/P (MAP) Pulse Ox O2 Delivery O2 Flow Rate FiO2 04/29/19 08:00 97.9 120 18 124/72 (89) 95 04/29/19 04:00 97.9 118 19 123/75 (91) 97 04/29/19 00:00 97.9 124 19 120/68 (85) 95 04/28/19 20:11 Room Air 04/28/19 20:00 97.0 124 19 120/79 (93) 96 04/28/19 16:00 98.0 116 19 100/70 (80) 94 04/28/19 12:00 97.9 120 16 124/79 (94) 95 04/28/19 09:00 Room Air Intake and Output 04/28/19 04/29/19 19:00 07:00 Intake Total 840 ml Balance 840 ml Intake Oral 840 ml # Voids 3 4 Objective General Appearance: no acute distress, awake, responsive, developmentally delayed middle age female HEENT: normocephalic, atraumatic, anicteric, mucous membranes moist Respiratory/Chest: lungs clear, no respiratory distress, no accessory muscle use Cardiovascular: normal rate Abdomen: normal bowel sounds, soft, non tender - obese Extremities: no edema, pedal pulses normal Neurologic/Psychiatric: abnormal gait, alert, responsive Musculoskeletal: normal muscle bulk Current Medications Medications (Trade) Dose Ordered Sig/Moo Route PRN Reason Start Time Stop Time Status Last Admin Dose Admin Acetaminophen (Tylenol) 650 mg Q4H PRN ORAL T>100.5 04/24/19 11:30 05/24/19 11:29 Dextrose (Dextrose 50%) 25 ml Q30M PRN IV Hypoglycemia 04/24/19 11:30 05/24/19 11:29 Dextrose (Dextrose 50%) 50 ml Q30M PRN IV Hypoglycemia 04/24/19 11:30 05/24/19 11:29 Lorazepam (Ativan 2mg/ml 1ml) 0.5 mg Q4H PRN IV For Anxiety 04/24/19 11:30 05/01/19 11:29 Mirtazapine (Remeron) 45 mg BEDTIME ORAL 04/24/19 21:00 05/24/19 20:59 04/28/19 20:00 Morphine Sulfate (Morphine Sulfate) 1 mg Q4H PRN IVP PAIN 4-10 04/24/19 11:30 05/01/19 11:29 Olanzapine (ZyPREXA) 10 mg BEDTIME ORAL 04/25/19 21:00 05/25/19 20:59 04/28/19 20:00 Ondansetron HCl (Zofran) 4 mg Q6H PRN IVP Nausea & Vomiting 04/24/19 11:30 05/24/19 11:29 Polyethylene Glycol (Miralax) 17 gm HSPRN PRN ORAL Constipation 04/24/19 21:00 05/24/19 20:59 Zolpidem Tartrate (Ambien) 5 mg HSPRN PRN ORAL Insomnia 04/24/19 21:00 05/01/19 20:59 04/28/19 20:00 Iwona Dean NP Apr 29, 2019 09:00
[2019-04-29 12:00] VITALS: BP 130/69
--- NOTE | 2019-04-29 14:49 | Internal Med Progress Note ---
Subjective Date of Service: Apr 29, 2019 Physician Name Kingston Pace Attending Physician Zaheer Hickey MD Current Medications Medications (Trade) Dose Ordered Sig/Moo Route PRN Reason Start Time Stop Time Status Last Admin Dose Admin Acetaminophen (Tylenol) 650 mg Q4H PRN ORAL T>100.5 04/24/19 11:30 05/24/19 11:29 04/29/19 14:40 Dextrose (Dextrose 50%) 25 ml Q30M PRN IV Hypoglycemia 04/24/19 11:30 05/24/19 11:29 Dextrose (Dextrose 50%) 50 ml Q30M PRN IV Hypoglycemia 04/24/19 11:30 05/24/19 11:29 Lorazepam (Ativan 2mg/ml 1ml) 0.5 mg Q4H PRN IV For Anxiety 04/24/19 11:30 05/01/19 11:29 Mirtazapine (Remeron) 45 mg BEDTIME ORAL 04/24/19 21:00 05/24/19 20:59 04/28/19 20:00 Morphine Sulfate (Morphine Sulfate) 1 mg Q4H PRN IVP PAIN 4-10 04/24/19 11:30 05/01/19 11:29 Olanzapine (ZyPREXA) 10 mg BEDTIME ORAL 04/25/19 21:00 05/25/19 20:59 04/28/19 20:00 Ondansetron HCl (Zofran) 4 mg Q6H PRN IVP Nausea & Vomiting 04/24/19 11:30 05/24/19 11:29 Polyethylene Glycol (Miralax) 17 gm HSPRN PRN ORAL Constipation 04/24/19 21:00 05/24/19 20:59 Zolpidem Tartrate (Ambien) 5 mg HSPRN PRN ORAL Insomnia 04/24/19 21:00 05/01/19 20:59 04/28/19 20:00 Allergies: Coded Allergies: No Known Allergies (Unverified , 11/26/12) ROS Limited/Unobtainable: No Constitutional: Reports: no symptoms HEENT: Reports: no symptoms Cardiovascular: Reports: no symptoms Respiratory: Reports: no symptoms Gastrointestinal/Abdominal: Reports: no symptoms Genitourinary: Reports: no symptoms Neurologic/Psychiatric: Reports: no symptoms Subjective 43 YO F admitted with frequent falls and failure to thrive. Cover for Int Med- Dr Hickey Objective Last Vital Signs Date Time Temp Pulse Resp B/P (MAP) Pulse Ox O2 Delivery O2 Flow Rate FiO2 04/29/19 12:00 97.7 113 20 130/69 (89) 97 04/29/19 09:00 Room Air Intake and Output 04/28/19 04/29/19 18:59 06:59 Intake Total 840 ml Balance 840 ml Intake Oral 840 ml # Voids 3 4 Objective General Appearance: WD/WN, no apparent distress, alert EENT: PERRL/EOMI, normal ENT inspection Neck: non-tender, normal alignment, supple, normal inspection Cardiovascular: normal peripheral pulses, normal rate, regular rhythm, no gallop/murmur, no JVD Respiratory/Chest: chest wall non-tender, lungs clear, normal breath sounds, no respiratory distress, no accessory muscle use Abdomen: normal bowel sounds, non tender, soft, no organomegaly, no mass Extremities: normal range of motion 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
[2019-04-29] MEDS: LORazepam Inj 2mg/ml 1ml IV PRN (15:16)
[2019-04-29 16:00] VITALS: BP 110/73
--- NOTE | 2019-04-29 19:39 | NUR ---
HAND-OFF: Report given to BRUNA Estrella.
--- NOTE | 2019-04-29 19:40 | NUR ---
NURSE NOTES: Received report from BRUNA Clancy. Patient alert, oriented x2-3, ambulating in room, encouraged to call for assistance, gait unsteady at times. Patient assisted back to bed, bed alarms on. Bed in low position, locked, side rails up x2, call light within reach. Patient worried about getting her sleeping pill this evening, provided reassurance. Will continue to monitor.
[2019-04-29 20:00] VITALS: BP 128/74
[2019-04-29] MEDS: OLANZapine 10mg tab ORAL SCH (20:18)
[2019-04-29] MEDS: Zolpidem 5mg tab ORAL PRN (20:18)
--- NOTE | 2019-04-29 21:15 | NUR ---
NURSE NOTES: Asleep, respirations unlabored.
[2019-04-30] VITALS: BP 109/74
[2019-04-30 04:00] VITALS: BP 130/85
[2019-04-30 06:18] LABS: BASOPHILS % (AUTO) 1.9 % (0.0-2.0); EOSINOPHILS % (AUTO) 6.4 % (0.0-3.0); HEMOGLOBIN 12.4 G/DL (12.0-16.0); LYMPHOCYTES % (AUTO) 33.2 % (20.0-45.0); MEAN CORPUSCULAR VOLUME 100 FL (80-99); MONOCYTES % (AUTO) 9.3 % (1.0-10.0); NEUTROPHILS % (AUTO) 49.2 % (45.0-75.0); PLATELET COUNT 217 K/UL (150-450); RED BLOOD COUNT 3.81 M/UL (4.20-5.40); RED CELL DISTRIBUTION WIDTH 11.9 % (11.6-14.8); WHITE BLOOD COUNT 8.5 K/UL (4.8-10.8)
[2019-04-30 06:40] LABS: ANION GAP 9 mmol/L (5-15); BLOOD UREA NITROGEN 18 mg/dL (7-18); CALCIUM 9.8 MG/DL (8.5-10.1); CARBON DIOXIDE 28 MMOL/L (21-32); CHLORIDE 104 MMOL/L (98-107); CREATININE 0.7 MG/DL (0.55-1.30); POTASSIUM 3.7 MMOL/L (3.5-5.1); SODIUM 141 MMOL/L (136-145)
--- NOTE | 2019-04-30 07:25 | NUR ---
HAND-OFF: Report given to BRUNA Mercer.
--- NOTE | 2019-04-30 07:26 | NUR ---
NURSE NOTES: Received report from BRUNA Aguilera. Rounding done with outgoing nurse. Pt a/o x 3, in bed. No respiratory distress noted. Denies any pain at this time. Bed in lowest position, call light within reach. Will continue to monitor.
[2019-04-30 08:00] VITALS: BP 148/92
[2019-04-30] MEDS: LORazepam Inj 2mg/ml 1ml IV PRN (08:08)
--- NOTE | 2019-04-30 10:45 | GI Progress Note ---
Assessment/Plan Problems: (1) Failure to thrive in adult ICD Codes: R62.7 - Adult failure to thrive SNOMED: 937886431 (2) Frequent falls ICD Codes: R29.6 - Repeated falls SNOMED: 049913547 (3) Development delay ICD Codes: R62.50 - Unspecified lack of expected normal physiological development in childhood SNOMED: 680809200 (4) Schizophrenia ICD Codes: F20.9 - Schizophrenia, unspecified SNOMED: 59524712 Status: stable Status Narrative Discussed with Dr. Schmidt Assessment/Plan Speech therapy notes reviewed. No plans for PEG, patient tolerating diet Follow-up calorie count to see if nutritional needs are met Consider Marinol as appetite stimulant Reglan as needed for any GI motility PPI Zofran as needed okay for DC per GI standpoint The patient was seen and examined at bedside and all new and available data was reviewed in the patients chart. I agree with the above findings, impression and plan. (Patient seen earlier today. Signature stamp does not reflect patient encounter time.). - Anjel Schmidt MD Subjective Gastrointestinal/Abdominal: Reports: no symptoms Subjective Limited Objective Last 24 Hour Vital Signs Date Time Temp Pulse Resp B/P (MAP) Pulse Ox O2 Delivery O2 Flow Rate FiO2 04/30/19 09:00 Room Air 04/30/19 08:00 98.1 113 20 148/92 (110) 98 04/30/19 04:00 97.1 101 18 130/85 (100) 94 04/30/19 00:00 98.2 116 16 109/74 (86) 93 04/29/19 21:00 Room Air 04/29/19 20:00 97.4 118 18 128/74 (92) 100 04/29/19 16:00 97.0 109 20 110/73 (85) 97 04/29/19 15:10 97.7 04/29/19 12:00 97.7 113 20 130/69 (89) 97 Intake and Output 04/29/19 04/30/19 19:00 07:00 Intake Total 1140 ml 240 ml Balance 1140 ml 240 ml Intake Oral 840 ml 240 ml Other 300 ml # Voids 5 1 Laboratory Tests Test 04/30/19 04:45 White Blood Count 8.5 K/UL (4.8-10.8) Red Blood Count 3.81 M/UL (4.20-5.40) L Hemoglobin 12.4 G/DL (12.0-16.0) Hematocrit 38.0 % (37.0-47.0) Mean Corpuscular Volume 100 FL (80-99) H Mean Corpuscular Hemoglobin 32.7 PG (27.0-31.0) H Mean Corpuscular Hemoglobin Concent 32.7 G/DL (32.0-36.0) Red Cell Distribution Width 11.9 % (11.6-14.8) Platelet Count 217 K/UL (150-450) Mean Platelet Volume 8.7 FL (6.5-10.1) Neutrophils (%) (Auto) 49.2 % (45.0-75.0) Lymphocytes (%) (Auto) 33.2 % (20.0-45.0) Monocytes (%) (Auto) 9.3 % (1.0-10.0) Eosinophils (%) (Auto) 6.4 % (0.0-3.0) H Basophils (%) (Auto) 1.9 % (0.0-2.0) Sodium Level 141 MMOL/L (136-145) Potassium Level 3.7 MMOL/L (3.5-5.1) Chloride Level 104 MMOL/L (98-107) Carbon Dioxide Level 28 MMOL/L (21-32) Anion Gap 9 mmol/L (5-15) Blood Urea Nitrogen 18 mg/dL (7-18) Creatinine 0.7 MG/DL (0.55-1.30) Estimat Glomerular Filtration Rate > 60 mL/min (>60) Glucose Level 111 MG/DL (74-106) H Calcium Level 9.8 MG/DL (8.5-10.1) Height (Feet): 5 Height (Inches): 0.00 Weight (Pounds): 130 General Appearance: WD/WN, no apparent distress, alert Cardiovascular: normal rate Respiratory/Chest: normal breath sounds, no respiratory distress Abdominal Exam: normal bowel sounds, non tender, soft Extremities: non-tender Pita Martinez NP Apr 30, 2019 10:45
[2019-04-30 12:00] VITALS: BP 115/74
--- NOTE | 2019-04-30 13:10 | NUR ---
CASE MANAGEMENT: REVIEW 04/30/2019 SI:GASTRITIS. DEHYDRATION. T 98.2 HR 106 RR 20 B/P 115/74 SATS 98% ON RA GLU 111 IS:REMERON PO QHS ZYPREXA PO QHS MED/SURG
--- NOTE | 2019-04-30 13:51 | Pulmonology Progress Note ---
Assessment/Plan Problems: (1) Failure to thrive in adult (2) Frequent falls (3) Schizophrenia (4) Development delay Assessment/Plan doing better no new complains pt/ot evaluation pending social service evaluation dvt prophylaxis. Subjective ROS Limited/Unobtainable: No Constitutional: Reports: no symptoms HEENT: Repors: no symptoms Allergies: Coded Allergies: No Known Allergies (Unverified , 11/26/12) Objective Last 24 Hour Vital Signs Date Time Temp Pulse Resp B/P (MAP) Pulse Ox O2 Delivery O2 Flow Rate FiO2 04/30/19 12:00 98.2 106 20 115/74 (88) 98 04/30/19 09:00 Room Air 04/30/19 08:00 98.1 113 20 148/92 (110) 98 04/30/19 04:00 97.1 101 18 130/85 (100) 94 04/30/19 00:00 98.2 116 16 109/74 (86) 93 04/29/19 21:00 Room Air 04/29/19 20:00 97.4 118 18 128/74 (92) 100 04/29/19 16:00 97.0 109 20 110/73 (85) 97 04/29/19 15:10 97.7 Intake and Output 04/29/19 04/30/19 19:00 07:00 Intake Total 1140 ml 240 ml Balance 1140 ml 240 ml Intake Oral 840 ml 240 ml Other 300 ml # Voids 5 1 General Appearance: WD/WN HEENT: normocephalic, atraumatic Respiratory/Chest: chest wall non-tender, normal breath sounds Cardiovascular: normal peripheral pulses Abdomen: non distended Genitourinary: normal external genitalia Skin: no rash Laboratory Tests 04/30/19 04:45: White Blood Count 8.5, Red Blood Count 3.81L, Hemoglobin 12.4, Hematocrit 38.0, Mean Corpuscular Volume 100H, Mean Corpuscular Hemoglobin 32.7H, Mean Corpuscular Hemoglobin Concent 32.7, Red Cell Distribution Width 11.9, Platelet Count 217, Mean Platelet Volume 8.7, Neutrophils (%) (Auto) 49.2, Lymphocytes (% ) (Auto) 33.2, Monocytes (%) (Auto) 9.3, Eosinophils (%) (Auto) 6.4H, Basophils (%) (Auto) 1.9, Sodium Level 141, Potassium Level 3.7, Chloride Level 104, Carbon Dioxide Level 28, Anion Gap 9, Blood Urea Nitrogen 18, Creatinine 0.7, Estimat Glomerular Filtration Rate > 60, Glucose Level 111H, Calcium Level 9.8 Current Medications Medications (Trade) Dose Ordered Sig/Moo Route PRN Reason Start Time Stop Time Status Last Admin Dose Admin Acetaminophen (Tylenol) 650 mg Q4H PRN ORAL T>100.5 04/24/19 11:30 05/24/19 11:29 04/29/19 14:40 Dextrose (Dextrose 50%) 25 ml Q30M PRN IV Hypoglycemia 04/24/19 11:30 05/24/19 11:29 Dextrose (Dextrose 50%) 50 ml Q30M PRN IV Hypoglycemia 04/24/19 11:30 05/24/19 11:29 Lorazepam (Ativan 2mg/ml 1ml) 0.5 mg Q4H PRN IV For Anxiety 04/24/19 11:30 05/01/19 11:29 04/30/19 08:08 Mirtazapine (Remeron) 45 mg BEDTIME ORAL 04/24/19 21:00 05/24/19 20:59 04/29/19 20:18 Morphine Sulfate (Morphine Sulfate) 1 mg Q4H PRN IVP PAIN 4-10 04/24/19 11:30 05/01/19 11:29 Olanzapine (ZyPREXA) 10 mg BEDTIME ORAL 04/25/19 21:00 05/25/19 20:59 04/29/19 20:18 Ondansetron HCl (Zofran) 4 mg Q6H PRN IVP Nausea & Vomiting 04/24/19 11:30 05/24/19 11:29 Polyethylene Glycol (Miralax) 17 gm HSPRN PRN ORAL Constipation 04/24/19 21:00 05/24/19 20:59 Zolpidem Tartrate (Ambien) 5 mg HSPRN PRN ORAL Insomnia 04/24/19 21:00 05/01/19 20:59 04/29/19 20:18 Peterson Bartlett MD Apr 30, 2019 13:51
--- NOTE | 2019-04-30 15:05 | NUR ---
NURSE NOTES: Discharge instruction was given to pt's mother. All belongings list were checked with pt's mother. IV line/arm band removed. Pt discharged accompanied by mother in stable condition.
--- NOTE | 2019-05-01 03:00 | Progress Note ---
DATE: 04/30/2019 SUBJECTIVE: The patient is calm and cooperative. No behavior issues noted. The patient is still stable at baseline. I spoke to who had questions about the patient's medications and followup. The patient has cognitive impairment, developmental disability. MENTAL STATUS EXAMINATION: The patient is alert and oriented time self and place. Mood is neutral. Affect is flat. Thought process is concrete. Thought content, no suicidal or homicidal ideation. ASSESSMENT: 1. Schizophrenia. 2. Developmental delay. PLAN: 1. We will continue current medications. 2. Provide the patient with reality orientation. Lo Biggs M.D. DR: LISY JOB#: [id number] CC: SHILOH
--- NOTE | 2019-05-01 10:10 | Discharge Summary ---
Discharge Summary Discharge Summary _ DATE OF ADMISSION: 04/24/2019 DATE OF DISCHARGE: 04/30/2019 DISCHARGED BY: Dr. Hickey REASON FOR ADMISSION: 43 years old female with past medical history of developmental delay, anxiety, gastritis, presented for failure to thrive , frequent falls , ongoing for 2 months and getting progressively worse. No fevers no chills. Occasional abdominal pain after eating, no nausea, no vomiting, no diarrhea. Patient was recently evaluated by GI specialist and had EGD , which was unremarkable. Patient by herself was unable to provide any history. Upon evaluation vital signs revealed tachycardia with heart rate of 122, otherwise stable. Laboratory work-up revealed no leukocytosis, stable hemoglobin and hematocrit. Stable electrolytes and renal parameters. Glucose 131. Lactic acid 2.3. Magnesium 1.7. Troponin negative. pro BNP . EKG revealed sinus tachycardia, no acute ischemic changes. Stable LFT and lipase. TSH within normal limits. Urinalysis revealed no evidence of urinary tract infection, +1 protein. Chest x-ray revealed no acute cardiopulmonary pathology. CT scan of the head demonstrated no acute intracranial pathology. Patient received 1 L of fluids in ED. Patient subsequently admitted with failure to thrive and dehydration. CONSULTANTS: hospitalist Dr. Bartlett GI specialist Dr. Schmidt psychiatrist [facility] COURSE: Patient admitted to medical surgical floor. Patient received IV fluids initially, oral hydration afterwards encouraged. Recent outpatient EGD revealed no acute findings. Bedside swallow evaluation was done. Diet started as per speech therapist recommendation : regular texture with aspiration precaution. No evidence of aspiration. Patient was able to tolerate diet. Patient started on GI prophylaxis with PPI. Antiemetic were on board as needed. Per GI specialist , no plans for further GI procedure at this time. GI specialist recommended to consider Marinol if not eating. Renal parameters and electrolytes ere clsoely monitored. Potassium and magnesium replaced, Psychiatrist followed. Psychiatric medication regimen was optimized as per psychiatrist. Fall precaution maintained; patient was working with physical therapist . tie up worker seen the patient and spoke with patient's mother over the phone. Social work spoke with [facility] sales account representative. Patient apparently deactivated services in June 2018. Per [facility], patient is able to reinstate at any time , which was relayed to patient's mother. Patient clinically stabilized and was ready for discharge home. Follow-up with primary care provider next week. Consider Marinol if not eating as well as the home health services for physical therapy. Of note, patient was prior with outpatient physical therapy / [facility]. FINAL DIAGNOSES: Failure to thrive Developmental delay Frequent falls Probably dehydration -resolved Electrolyte imbalance: hypokalemia, hypomagnesemia Schizoaffective bipolar type Anxiety disorder DISCHARGE MEDICATIONS: See Medication Reconciliation list. DISCHARGE INSTRUCTIONS: Patient was discharged home. Follow up with primary care provider in one week. Iwona Dean NP May 01, 2019 10:10
== END 2019-04-30 15:10 | disposition home or self-care (01) | DRG 641 ==
LOC: EMR 10:05 → 4E 10:08 → EDBEDREQ 11:56 → 4E 12:40 → 3E 04-29 17:59
DX: E86.0 Dehydration (principal); K29.70 Gastritis, unspecified, without bleeding; R10.13 Epigastric pain; F79 Unspecified intellectual disabilities; R29.6 Repeated falls; R00.0 Tachycardia, unspecified; R62.7 Adult failure to thrive; E87.6 Hypokalemia; E83.42 Hypomagnesemia; F25.0 Schizoaffective disorder, bipolar type; F41.9 Anxiety disorder, unspecified
CPT/HCPCS: 36415; 70450; 71045; 80048; 80053; 80061; 81003; 81025; 82550; 82553; 83605; 83690; 83735; 83880; 84100; 84439; 84443; 84481; 84484; 85025; 85610; 85730; 87040; 93005; 93970; 96360; 99212; 99285; J8499